=== PATIENT | female | born 1940 | race Caucasian/White ===

== ENCOUNTER 2017-03-29 22:15 | Inpatient (IN) | payer MEDICARE ==
[2017-03-29] MEDS: Aspirin Low Dose CHEW TAB* 81 MG PO ONE (22:54)
[2017-03-29] MEDS ORDERED: HYDROmorphone* 1 MG/ML 1 ML SYR IV SLOW PU ONE (23:09)
[2017-03-29] MEDS ORDERED: Ondansetron INJ* 2 MG/ML VIAL IV ONE (23:10)
[2017-03-29 23:47] LABS: Hematocrit 33 % (35-47); Hemoglobin 9.9 g/dl (12.0-16.0); Mean Corpuscular HGB Conc 30 g/dl (31-36); Mean Corpuscular Hemoglobin 19 pg (27-31); Mean Corpuscular Volume 64 fL (80-97); Mean Platelet Volume 10 um3 (7.4-10.4); Red Blood Count 5.18 10^6/ul (4.0-5.4); Red Cell Distribution Width 20 % (10.5-15); White Blood Count 15.1 10^3/ul (3.5-10.8)
[2017-03-29 23:48] LABS: Add Diff/Slide Review? Slide Review Added; Comments Flag Yes
[2017-03-29 23:52] LABS: ALT 26 U/L (7-52); AST 34 U/L (13-39); Albumin 3.5 g/dL (3.2-5.2); Alkaline Phosphatase 109 U/L (34-104); Amylase 24 U/L (29-103); Anion Gap 6 mmol/L (2-11); BUN/Creatinine Ratio 29.5 (8-20); Blood Urea Nitrogen 26 mg/dL (6-24); CO2 Carbon Dioxide 30 mmol/L (22-32); Calcium 8.8 mg/dL (8.6-10.3); Chloride 95 mmol/L (101-111); EGFR African American 80.8 (>60); EGFR Non-African American 62.8 (>60); Globulin 3.4 g/dL (2-4); Glucose 347 mg/dL (70-100); Lipase < 10 U/L (11.0-82.0); Potassium 4.2 mmol/L (3.5-5.0); Sodium 131 mmol/L (133-145); Total Protein 6.9 g/dL (6.4-8.9)
[2017-03-29 23:55] LABS: Troponin I 0.05 ng/mL (<0.04)
[2017-03-30 00:43] LABS: Hypochromasia 3+; Macrocytosis 1+; Microcytosis 1+; Target Cells 2+
[2017-03-30] MEDS ORDERED: Lidocaine 2% VISCOUS* 15 ML UDC PO ONE (02:06)
[2017-03-30] MEDS ORDERED: Al Hydrox/Mg Hydrox/Simet LIQ* 30 ML UDC PO ONE (02:06)
[2017-03-30] MEDS: Aspirin Low Dose CHEW TAB* 81 MG PO ONE (03:54)
[2017-03-30] MEDS ORDERED: Docusate CAP* 100 MG PO ONE (04:31)
[2017-03-30] MEDS ORDERED: Docusate CAP* 100 MG PO PRN (05:53)
[2017-03-30] MEDS ORDERED: Sucralfate TAB* 1 GM PO PRN (05:53)
[2017-03-30] MEDS ORDERED: Al Hydrox/Mg Hydrox/Simet LIQ* 30 ML UDC PO PRN (06:00)
[2017-03-30] MEDS ORDERED: Enoxaparin(*) 40 MG/0.4 ML SYR SUBCUT SCH (06:00)
[2017-03-30] MEDS: Levothyroxine TAB* 75 MCG TAB PO SCH (07:24)
[2017-03-30] MEDS: Omeprazole CAP* 20 MG PO SCH (07:24)
[2017-03-30] MEDS: INSULIN DETEMIR 100 UNIT/ML SUBCUT SCH ×3 (07:26→17:52)
[2017-03-30] MEDS ORDERED: Insulin LISPRO* 1 UNITS UNIT SUBCUT SCH (07:30)
[2017-03-30] MEDS: INSULIN ASPART 100 UNIT/ML SUBCUT SCH ×4 (07:31→20:56)
[2017-03-30] MEDS: Levothyroxine TAB* 100 MCG TAB PO SCH (07:36)
--- NOTE | 2017-03-30 07:41 | RAD ---
HISTORY: Chest pain COMPARISONS: June 15, 2016 VIEWS:1: Single frontal portable view of the chest at 11:07 PM FINDINGS: LINES AND TUBES: None. CARDIOMEDIASTINAL SILHOUETTE: The cardiomediastinal silhouette is normal for portable technique. PLEURA: The costophrenic angles are sharp. No pleural abnormalities are noted. LUNG PARENCHYMA: There is hyperinflation. ABDOMEN: The upper abdomen is clear. There is no subphrenic gas. BONES AND SOFT TISSUES: No bone or soft tissue abnormalities are noted. IMPRESSION: NO ACTIVE CARDIOPULMONARY DISEASE.
--- NOTE | 2017-03-30 07:58 | RAD ---
CLINICAL HISTORY: Left upper quadrant pain, history of pancreatic cancer COMPARISON: MRI of the abdomen dated March 04, 2017, CT dated February 09, 2016, CT dated February 17, 2016 TECHNIQUE: Multiple contiguous axial CT scans were obtained of the abdomen and pelvis, without intravenous contrast enhancement. Coronal and sagittal multiplanar reformations are submitted for review. Oral contrast was administered. FINDINGS: The study is limited by the lack of intravenous contrast. This limits evaluation of the solid organs and vasculature. LUNG BASES: The lung bases are clear. LIVER: The liver is normal in shape, size, contour, and attenuation. BILE DUCTS: There is a small amount of pneumobilia GALLBLADDER: The gallbladder is well-visualized. PANCREAS: The pancreas is not well evaluated. Atrophic. There is post surgical change in the region of the pancreatic head SPLEEN: The spleen is not visualized UPPER GI TRACT: Evaluation of the gastrointestinal tract is limited by incomplete gastric distention. There is post surgical change to the upper GI tract SMALL BOWEL AND MESENTERY: The small bowel is normal in contour, course, and caliber. There is no obstruction or dilatation. COLON: There are multiple diverticula of the sigmoid colon. There is no pericolonic inflammatory change. ADRENALS: Normal bilaterally. KIDNEYS: The kidneys are normal in shape, size, contour, and axis. There is no hydronephrosis or nephrolithiasis. BLADDER: The bladder is smooth in contour. PELVIC ORGANS: The pelvic organs are not visualized. AORTA: The aorta is normal. IVC: Unremarkable LYMPH NODES: There is no lymphadenopathy by size criteria. ABDOMINAL WALL: There is a small fat-containing ventral hernia on the right best seen on axial image 45 BONES AND SOFT TISSUES: Degenerative changes are noted of the spine OTHER: None IMPRESSION: 1. THE PATIENT APPEARS TO BE STATUS POST WHIPPLE PROCEDURE AND SPLENECTOMY, THOUGH EVALUATION IS LIMITED BY THE LACK OF INTRAVENOUS CONTRAST 2. DIVERTICULOSIS. 3. THERE IS NO APPRECIABLE LOCULATED FLUID COLLECTION TO SUGGEST ABSCESS. NO ACUTE CT PATHOLOGY OF THE VISUALIZED ABDOMEN OR PELVIS.
[2017-03-30] MEDS: Atenolol TAB* 25 MG PO SCH (09:22)
[2017-03-30] MEDS: Aspirin EC Low Dose* 81 MG TAB.EC PO SCH (09:22)
[2017-03-30] MEDS: Ramipril CAP* 2.5 MG PO SCH ×2 (09:22→09:37)
[2017-03-30] MEDS ORDERED: Acetaminophen TAB* 325 MG PO PRN (10:16)
[2017-03-30] MEDS: PANCRELIPASE 12000 UNIT PO SCH ×3 (10:43→17:56)
--- NOTE | 2017-03-30 14:28 | CONS ---
CC: Mj Reveles MD CARDIOLOGY CONSULTATION: DATE OF CONSULT: 03/30/17 INDICATION FOR CONSULTATION: Acute coronary syndrome. HISTORY OF PRESENT ILLNESS: The patient is a 76-year-old female with a history of diabetes, history of pancreatic cancer, status post chemotherapy and radiation, who came to the emergency room franci alston of abdominal and flank pain. The patient states for the last couple of days, she has noticed that she has had this epigastric discomfort. It radiates around to her side and up into her middle back . She has had it a couple of times that lasted 10 or 15 minutes and then resolved; however, last ni gh she had severe pain and some degree of nausea associated with it. She decided to come to the em ergency room. On arrival to the emergency room, the patient was given a GI cocktail and nitroglycer in. Eventually, her chest pain resolved. The patient was admitted to the hospital for chest pain. Her initial troponin level was 0.05. Her second troponin, 0.14. Third troponin 0.05. The patient 's EKG had normal sinus rhythm with T-wave inversions and ST segment depression in V4, V5, and V6. These are new compared to her EKG in 2016. This morning, the patient is pain-free. 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 PAST SURGICAL HISTORY: She had a Whipple procedure in March of 2016. Also, history of thyroidectomy, hysterectomy, shoulder surgery. OUTPATIENT MEDICATIONS: 1. Levothyroxine 175 mcg a day. 2. Lipitor 10 mg a day. 3. 150 mg a day. 4. Levemir injection. 5. Atenolol 25 mg a day. 6. Aspirin 81 mg a day. 7. Omeprazole 20 mg a day. 8. Vitamin C. ALLERGIES: No known drug allergies. SOCIAL HISTORY: She is . She is retired. She does not exercise regularly. She denies tobac co or alcohol use. REVIEW OF SYSTEMS: Negative for fevers and chills. Negative for changes in weight. Positive for f requent headaches. PHYSICAL EXAM: Height is 5 feet 3 inches, weight is 130 pounds. Blood pressure of 158/66, heart ra te is 70, temperature is 98.8, oxygen saturation 98% on room air. Sclerae anicteric. Oropharynx is pink without erythema. Carotids are 2+ without bruits. JVD is normal. Thyroid is normal. Cardiac Exam: S1, S2 without any murmurs, rubs or gallops. Lungs are clear to auscultation bilaterally. There is no dullness to percussion. Abdomen is soft, nontender, nondistended, with normoactive riddhi l sounds. Extremities show no edema. She has 2+ pulses throughout. The patient is awake, alert, a nd oriented. She moves all 4 extremities equally. DIAGNOSTIC STUDIES/LABORATORY DATA: Chemistries within normal limits. BUN 26, creatinine 0.88. CB C: White count 15, hemoglobin 9, hematocrit 33, which is about her baseline. IMPRESSION: This is a 76-year-old woman with a history of supraventricular tachycardia, who came to the hospital because of typical anginal -type symptoms. She had EKG changes and a mild elevation in troponin. I think this is consistent with acute coronary syndrome. The patient did have a stress test in 2014 , which showed normal perfusion throughout her myocardium. For now, my recommendation is the patient undergo cardiac catheterization. Given her history and he r presentation, I think she is at high risk for coronary artery disease. The risks and benefits wer e described in great detail to the patient and her , and they are willing to proceed. The pa tient will get an echocardiogram. The patient was started on a full-dose Lovenox. [id number]/[facility] #: [id number]
[2017-03-30 20:15] LABS: Urine Bacteria Absent (Absent); Urine Bilirubin Negative (Negative); Urine Glucose Negative (Negative); Urine Nitrite Negative (Negative)
--- NOTE | 2017-03-30 20:40 | ED ---
Rakel Elaine Alok, scribed for Lester Parikh MD on 03/30/17 at 0147 . Abdominal Pain/Female - HPI Summary HPI Summary: 76F presents to the ED with epigastric abd pain described as a soreness. Pt states that her abd sensation at first occurred for the last few months after eating, but for the last few weeks has been intermittent. Her abd pain worsened today, radiating to the back and left flank, prompting her visit to the ED. Pt initially took carafate which at first improved her symptoms but no longer do. Pt states that since arriving at the ED she was given dilaudid which improved her pain. Pt also notes increased eructation as well as diaphoresis at night. Pt also notes a fluttering sensation of the heart in the morning. Pt denies fever, or chills. Pt denies CP. PMHx includes pancreatic CA and DM. PSHx includes Whipple procedure. Pt takes Creon and aspirin. Pt denies ETOH/tobacco. Her last BM was 1700 today. - History of Current Complaint Chief Complaint: EDAbdPain Stated Complaint: FLANK PAIN Time Seen by Provider: 03/29/17 22:34 Hx Obtained From: Patient ?: No Onset/Duration: Lasting Weeks, Still Present Timing: Intermittent Episode Lasting Severity Initially: Moderate Severity Currently: Moderate Pain Intensity: 9 Pain Scale Used: 0-10 Numeric Location: Epigastric Radiates: Yes Radiates to: Back, Flank Aggravating Factor(s): Food Alleviating Factor(s): Medications - Dilaudid Associated Signs and Symptoms: Positive: Diaphoresis, Other: - eructation. Negative: Fever, Constipation Allergies/Adverse Reactions: Allergies Allergy/AdvReac Type Severity Reaction Status Date / Time Adhesive Tape Allergy Unknown Verified 03/30/17 00:20 Reaction Details contrast dye Allergy Intermediate Palpitation Uncoded 03/30/17 02:36 s Home Medications: Home Medications Aspirin [Aspirin 81 MG TAB] 81 mg PO DAILY 03/30/17 [History Confirmed 03/30/17] Atenolol TAB* [Tenormin TAB* 25 MG] 25 mg PO DAILY 03/30/17 [History Confirmed 03/30/17] Atorvastatin* [Lipitor*] 10 mg PO BEDTIME 03/30/17 [History Confirmed 03/30/17] Insulin Aspart [Novolog] 100 unit SUBCUT QID 03/30/17 [History Confirmed ] Insulin Detemir [Levemir Flextouch] 100 unit SUBCUT BID 03/30/17 [History Confirmed 03/30/17] Levothyroxine TAB (NF) [Synthroid TAB (NF)] 175 mcg PO DAILY 03/30/17 [History Confirmed 03/30/17] Pancrelipase (NF) [Creon (NF)] 36,000 units PO TID WITH MEALS 03/30/17 [History Confirmed 03/30/17] PMH/Surg Hx/FS Hx/Imm Hx Endocrine/Hematology History: Reports: Hx Thyroid Disease Denies: Hx Diabetes Cardiovascular History: Denies: Hx Hypertension, Hx Pacemaker/ICD Respiratory History: Denies: Hx Asthma Musculoskeletal History: Denies: Hx Scoliosis Sensory History: Reports: Hx Hearing Aid Neurological History: Denies: Hx Headaches, Other Neuro Impairments/Disorders Psychiatric History: Denies: Hx Panic Disorder - Cancer History Cancer Type, Location and Year: papillary thyroid with surgery 2006 Hx Chemotherapy: No Hx Radiation Therapy: No - Surgical History Surgery Procedure, Year, and Place: LT ROTATOR CUFF REPAIR,THYROIDECTOMY; hysterectomy 05/2013; incisional hernia 2013; Infectious Disease History: No Infectious Disease History: Denies: Traveled Outside the [place] in Last 30 Days - Family History Known Family History: Negative: Cardiac Disease, Hypertension, Diabetes - Social History Occupation: Retired Lives: With Family Alcohol Use: None Substance Use Type: Reports: None Smoking Status (MU): Never Smoked Tobacco Review of Systems Positive: Skin Diaphoresis. Negative: Fever, Chills Negative: Erythema Negative: Sore Throat Positive: Palpitations - fluttering. Negative: Chest Pain Negative: Shortness Of Breath, Cough Positive: Abdominal Pain, Other - eructation. Negative: Vomiting, Nausea Positive: flank pain. Negative: dysuria, hematuria Negative: Myalgia, Edema Negative: Rash Neurological: Other - Negative: Dizziness All Other Systems Reviewed And Are Negative: Yes Physical Exam - Summary Physical Exam Summary: Constitutional: Well-developed, Well-nourished, Alert. (-) Distressed Skin: Warm, Dry HENT: Normocephalic; Atraumatic Eyes: Conjunctiva normal Neck: Musculoskeletal ROM normal neck. (-) JVD, (-) Stridor, (-) Tracheal deviation Cardio: Rhythm regular, rate normal, Heart sounds normal; Intact distal pulses; The pedal pulses are 2+ and symmetric. Radial pulses are 2+ and symmetric. (-) Murmur Pulmonary/Chest wall: Effort normal. (-) Respiratory distress, (-) Wheezes, (-) Rales Abd: Soft, Epigastric tenderness Musculoskeletal: (-) Edema Lymph: (-) Cervical adenopathy Neuro: Alert, Oriented x3 Psych: Mood and affect Kavita Triage Information Reviewed: Yes Vital Signs On Initial Exam: Initial Vitals Temp Pulse Resp BP Pulse Ox 98.2 F 72 16 172/86 97 03/29/17 22:15 03/29/17 22:15 03/29/17 22:15 03/29/17 22:15 03/29/17 22:15 Vital Signs Reviewed: Yes Diagnostics - Vital Signs Vital Signs Temp Pulse Resp BP Pulse Ox 03/30/17 01:00 63 15 167/74 94 03/30/17 00:30 64 17 177/84 97 03/30/17 00:01 65 16 173/89 96 03/30/17 00:00 65 18 95 03/29/17 23:30 68 14 160/83 99 03/29/17 23:05 69 12 92 03/29/17 23:03 170/77 03/29/17 22:55 98.4 F 69 17 170/77 94 03/29/17 22:15 98.2 F 72 16 172/86 97 - Laboratory Lab Results: Lab Results 03/29/17 03/29/17 03/29/17 Range/Units 23:17 23:17 23:17 WBC 15.1 H (3.5-10.8) 10^3/ul RBC 5.18 (4.0-5.4) 10^6/ul Hgb 9.9 L (12.0-16.0) g/dl Hct 33 L (35-47) % MCV 64 L (80-97) fL MCH 19 L (27-31) pg MCHC 30 L (31-36) g/dl RDW 20 H (10.5-15) % Plt Count 380 (150-450) 10^3/ul MPV 10 (7.4-10.4) um3 Neut % (Auto) 57.1 (38-83) % Lymph % (Auto) 24.5 L (25-47) % Tyrrell % (Auto) 12.7 H (1-9) % Eos % (Auto) 2.5 (0-6) % Baso % (Auto) 3.2 H (0-2) % Absolute Neuts (auto) 8.6 H (1.5-7.7) 10^3/ul Absolute Lymphs (auto) 3.7 (1.0-4.8) 10^3/ul Absolute Monos (auto) 1.9 H (0-0.8) 10^3/ul Absolute Eos (auto) 0.4 (0-0.6) 10^3/ul Absolute Basos (auto) 0.5 H (0-0.2) 10^3/ul Absolute Nucleated RBC 0.03 10^3/ul Nucleated RBC % 0.2 Normal RBC Morphology Not Reportable Hypochromasia 3+ Microcytosis 1+ Macrocytosis 1+ Target Cells 2+ Sodium 131 L (133-145) mmol/L Potassium 4.2 (3.5-5.0) mmol/L Chloride 95 L (101-111) mmol/L Carbon Dioxide 30 (22-32) mmol/L Anion Gap 6 (2-11) mmol/L BUN 26 H (6-24) mg/dL Creatinine 0.88 (0.51-0.95) mg/dL Est GFR ( Amer) 80.8 (>60) Est GFR (Non-Af Amer) 62.8 (>60) BUN/Creatinine Ratio 29.5 H (8-20) Glucose 347 H (70-100) mg/dL Lactic Acid 1.3 (0.5-2.0) mmol/L Calcium 8.8 (8.6-10.3) mg/dL Total Bilirubin 0.40 (0.2-1.0) mg/dL AST 34 (13-39) U/L ALT 26 (7-52) U/L Alkaline Phosphatase 109 H (34-104) U/L Troponin I 0.05 H* (<0.04) ng/mL Total Protein 6.9 (6.4-8.9) g/dL Albumin 3.5 (3.2-5.2) g/dL Globulin 3.4 (2-4) g/dL Albumin/Globulin Ratio 1.0 (1-3) Amylase 24 L (29-103) U/L Lipase < 10 L (11.0-82.0) U/L Result Diagrams: 03/29/17 23:17 03/29/17 23:17 Lab Statement: Any lab studies that have been ordered have been reviewed, and results considered in the medical decision making process. - Radiology CXR Xray Interpretation: No Acute Changes Radiology Interpretation Completed By: ED Physician - Dr. Parikh - CT Abd/Pel CT CT Interpretation: Positive (See Comments) - Impression: status post whipple procedure. no inflammatory process identified in the abd or pelvis. no abnormal mass, adenopathy or collection seen. moderate amount of retained stool throughout the colon. correlate for constipation. CT Interpretation Completed By: Radiologist - EKG 2229 Cardiac Rate: NL - 69 bpm EKG Rhythm: Sinus Rhythm EKG Interpretation: ST depressions in V5, V6. No STEMI 0346 Cardiac Rate: NL - 63 bpm EKG Rhythm: Sinus Rhythm EKG Interpretation: No STEMI EKG Comparison: No Significant Change - From 03/29/2017 @ 2229 Abdominal Pain Fem Course/Dx - Course Course Of Treatment: PATIENTS PAIN WAS EXACTLY REPRODUCED WITH EPIGASTRIC PALPATION - Diagnoses Provider Diagnoses: Abdominal pain, Elevated troponin - Provider Notifications Discussed Care Of Patient With: Dr. Reveles (Hospitalist) @ 0330 - Will admit pt Discharge - Discharge Plan Condition: Stable Disposition: ADMITTED TO [facility] The documentation as recorded by the Rakel ly Alok accurately reflects the service I personally performed and the decisions made by , Lester Parikh MD.
[2017-03-30] MEDS: Enoxaparin(*) 60 MG/0.6 ML SYR SUBCUT SCH (20:55)
[2017-03-30] MEDS: Atorvastatin* 10 MG TAB PO SCH (20:56)
--- NOTE | 2017-03-30 22:49 | HP ---
HISTORY AND PHYSICAL: DATE OF ADMISSION: 03/30/17 CHIEF COMPLAINT: Epigastric pain. HISTORY OF PRESENT ILLNESS: Ms. Jung is a 76-year-old woman with history of diabetes and pancreatic cancer who developed epigastric pain off and on in the last 2 months. The pain has been more frequent in the last 2 weeks, but is not necessarily associated with exertion. The night prior to admission, the pain was 10/10 and radiated to her back, so she decided to come to the emergency department. The pain is worsened by eating in the last 24 hours. Pain is not associated with nausea, vomiting, diaphoresis, or shortness of breath. She does now report 4/10 pain, sitting in the emergency department. The patient was diagnosed last year with pancreatic cancer of an unusual type, intraductal papillary mucinous adenoma. She underwent Whipple procedure and chemotherapy through [facility] and follows with surgeon and colleges there. She also was left with insulin dependent diabetes due to pancreatic resection and follows with [facility] in [place] for type 1 group of diabetes. She is very sensitive to insulin. The patient has no history of coronary artery disease, does have history of SVT. PAST MEDICAL HISTORY: Includes: 1. IPMA type pancreatic cancer as above. 2. Paroxysmal supraventricular tachycardia. 3. 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 4. Hypothyroidism, status post thyroidectomy for thyroid cancer. 5. History of radiation to her head and neck as a child. 6. Hyperlipidemia. 7. GERD. 8. History of epilepsy. 9. Allergic rhinitis. 10. Iron-deficiency anemia. PAST SURGICAL HISTORY: 1. Whipple procedure in March 2016. 2. Thyroidectomy. 3. Hysterectomy. 4. Splenectomy. MEDICATIONS ON ADMISSION: 1. Levothyroxine 175 mcg p.o. daily. 2. Lipitor 10 mg p.o. q.p.m. 3. Vitamin D 4000 units daily. 4. Ferrex iron 1 tablet p.o. daily. 5. Levemir 7 units subcutaneous in the a.m. and 5 units in the p.m. 6. NovoLog 1 to 5 units subcutaneous per sliding scale before meals up to 4 times per day. 7. Acyclovir topical cream as needed for cold sores. 8. Atenolol 25 mg p.o. daily. 9. Aspirin 81 mg p.o. daily. 10. Omeprazole 20 mg p.o. daily p.r.n., not currently used. 11. Creon 12,000 units 4 pills before meals, 1 pill before snacks. 12. Multivitamin 1 tablet p.o. daily. 13. Vitamin C 500 mg p.o. daily. ALLERGIES: She has allergy to IV CONTRAST for CAT scans. FAMILY HISTORY: Notable for paternal grandmother who at 73 of heart disease, mother of lung cancer, and father had myasthenia gravis. SOCIAL HISTORY: She is retired. She is . She has 2 children and 2 step children. Her healthcare proxy is her . She is a never smoker. No alcohol or drug use. REVIEW OF SYSTEMS: The patient denies any fevers, weight loss, or anorexia. The patient denies any chest pain or palpitations. The patient denies any cough , hemoptysis, or shortness of breath. The patient reports epigastric pain, but no diarrhea or vomiting. The patient denies any hematuria or dysuria. Remainder of her 14-point review of systems is negative other than that mentioned in the HPI. PHYSICAL EXAMINATION GENERAL: She is older woman, thin, in no acute distress. VITAL SIGNS: Temperature is 36.9, pulse 65, respirations 14, blood pressure 169 /83, O2 saturation is 96%. HEENT: Head is normocephalic, atraumatic. Sclerae anicteric. Pupils are equal , round and reactive to light and accommodation. Oropharynx is moist, no lesions. NECK: No JVD. No carotid bruit. No thyromegaly. Thyroid is absent surgically. LUNGS: Clear to auscultation and percussion bilaterally. HEART: Regular rate and rhythm without murmurs or gallops. ABDOMEN: Tender, epigastric. Soft. No masses. Normal bowel bowel sounds. EXTREMITIES: No peripheral edema. Dorsalis pedis pulses are 2+ bilaterally. NEUROLOGIC: Cranial nerves II through XII are intact. Motor strength is 5/5 throughout. Deep tendon reflexes are symmetric. LABORATORY DATA: Sodium 131, potassium 4.2, chloride 95, bicarbonate 30, BUN 26, creatinine 0.88, glucose 347, calcium 8.8, albumin 3.5, AST 34, ALT 26, bilirubin 0.4. Lactic acid 1.3. Lipase less than 10. Troponin is 0.05, up to 0.14 after 3 hours. White count 15.1, hemoglobin 9.9, hematocrit 33%, platelets are 380, MCV of 54. EKG shows normal sinus rhythm, normal axis. There is ST elevation in lead III. There are T-wave inversions and ST depressions in V5 through V6. These are new compared with April 2016. Chest x-ray negative for infiltrates or effusions. CT of abdomen and pelvis shows prominent stool and postsurgical changes from Whipple procedure. No other important findings. ASSESSMENT AND PLAN: This 76-year-old woman presenting with epigastric pain, elevated troponin. The epigastric pain differential would include gastritis, ulcer or signs of inferior myocardial infarction. The troponin elevation combined with EKG changes of ischemia or non-transmural myocardial infarction are concerning. The patient will be admitted to the cardiac care unit and monitored on telemetry and serial troponins due to acute coronary syndrome. She will have cardiology consultation in the morning. For her gastritis, will be restarted on her omeprazole and have as needed Carafate or Mylanta. For her diabetes, she is insulin dependent and will be started on her home regimen of Levemir and NovoLog. She can manage her own sliding scale based on what she eats. For electrolytes, she is euvolemic and not significant. Electrolyte disturbances possibly will be hydrated. She does not need any intravenous fluids. Code status is full. For her DVT prophylaxis, she will have subcutaneous Lovenox due to high risk situation with previous cancer. For iron deficiency, she will continue on her oral iron. Her white count is elevated likely due to stress and her history of splenectomy. CC: Dr. Simmons * [id number]/[facility] #: [id number] [facility]US[facility]
[2017-03-31] MEDS: Omeprazole CAP* 20 MG PO SCH (05:43)
[2017-03-31] MEDS: Levothyroxine TAB* 100 MCG TAB PO SCH (05:43)
[2017-03-31] MEDS: Levothyroxine TAB* 75 MCG TAB PO SCH (05:43)
[2017-03-31 06:04] LABS: Hematocrit 35 % (35-47); Hemoglobin 10.1 g/dl (12.0-16.0); Mean Corpuscular HGB Conc 29 g/dl (31-36); Mean Corpuscular Hemoglobin 19 pg (27-31); Mean Corpuscular Volume 64 fL (80-97); Mean Platelet Volume 10 um3 (7.4-10.4); Red Blood Count 5.37 10^6/ul (4.0-5.4); Red Cell Distribution Width 20 % (10.5-15); White Blood Count 16.5 10^3/ul (3.5-10.8)
[2017-03-31 06:05] LABS: Add Diff/Slide Review? Manual Diff Added; Comments Flag Yes
[2017-03-31 06:18] LABS: BUN/Creatinine Ratio 27.5 (8-20); Calcium 8.8 mg/dL (8.6-10.3); EGFR African American 90.2 (>60); EGFR Non-African American 70.1 (>60); Potassium 4.1 mmol/L (3.5-5.0)
[2017-03-31 06:20] LABS: Eosinophils % 6 % (0-6); Neutrophil % 71 % (38-83); Reactive Lymph % 1 % (0-6)
[2017-03-31 06:21] LABS: Hypochromasia 2+; Microcytosis 2+; Schistocytes 1+
[2017-03-31 06:22] LABS: Add Path Review? YES; Target Cells 2+
[2017-03-31] MEDS: INSULIN DETEMIR 100 UNIT/ML SUBCUT SCH ×2 (08:31→17:16)
[2017-03-31] MEDS: PANCRELIPASE 12000 UNIT PO SCH ×3 (08:34→17:14)
[2017-03-31] MEDS: Aspirin EC Low Dose* 81 MG TAB.EC PO SCH (08:35)
[2017-03-31] MEDS: Atenolol TAB* 25 MG PO SCH (08:35)
[2017-03-31] MEDS: INSULIN ASPART 100 UNIT/ML SUBCUT SCH ×4 (08:35→20:59)
[2017-03-31] MEDS: Ramipril CAP* 2.5 MG PO SCH (08:35)
[2017-03-31] MEDS: Enoxaparin(*) 60 MG/0.6 ML SYR SUBCUT SCH ×2 (08:36→21:30)
--- NOTE | 2017-03-31 10:08 | ECHO ---
Patient: EDILIA GAN [facility] Rec#: [id number] : 1940 Date: 03/31/2017 Age: 76y Height: 160 cm / 63.0 in Weight: 59 kg / 130.0 lbs Sex: F BSA: 1.6 Room#: ICU 2 Admit Date#: 03/30/2017 Type: Inpatient Referring: Herbert Simmons MD Reading: Herbert Simmons MD Stamping Press Operator: Amanda Hawley RN RDCS CC: Mj Reveles MD Transthoracic Echocardiogram Indication: NSTEMI BP: 138/65 HR: 55 Rhythm: Bradycardia Findings History: Pancreatic cancer S/P chemotherapy and radiation therapy, DM, thyroid cancer, dyslipidemia, PSVT Technical Comments: The study quality is good. Completed at 0900. Left Ventricle: The left ventricular chamber size is normal. Mild concentric left ventricular hypertrophy is observed. There is increased basal septal hypertrophy noted without evidence of an increased gradient across the left ventricular outflow tract. The septal knuckle measures 1.6 cm. Global left ventricular wall motion and contractility are within normal limits. There is normal left ventricular systolic function. The estimated ejection fraction is 55-60%. There is an E to A reversal in the mitral valve flow pattern suggestive of diastolic dysfunction. Left Atrium: The left atrial chamber size is normal. Right Ventricle: The right ventricular chamber size and systolic function are within normal limits. Right Atrium: The right atrial cavity size is normal. There is evidence of an atrial septal aneurysm. And possibly a small Patent Foramen Ovale Aortic Valve: The aortic valve is trileaflet. The aortic valve leaflets are mildly thickened. There is a trace of aortic regurgitation. There is no evidence of aortic stenosis. Mitral Valve: The mitral valve leaflets are mildly thickened. There is mild to moderate mitral regurgitation. There is no evidence of mitral stenosis. Tricuspid Valve: The tricuspid valve leaflets are normal. There is mild tricuspid regurgitation. No pulmonary hypertension is noted. Pulmonic Valve: The pulmonic valve appears normal. There is mild pulmonic regurgitation. There is no pulmonic stenosis. Pericardium: There is no significant pericardial effusion. Aorta: There is mild dilatation of the ascending aorta.3.5 cm There is no dilatation of the aortic arch. There is no dilation of the aortic root. Pulmonary Artery: The main pulmonary artery appears normal. Venous: The inferior vena cava appears normal in size. There is a greater than 50% respiratory change in the inferior vena cava dimension. Summary: There are no significant changes when compared to the previous study done on 03/14/12 Conclusions There is increased basal septal hypertrophy noted without evidence of an increased gradient across the left ventricular outflow tract. The septal knuckle measures 1.6 cm. Global left ventricular wall motion and contractility are within normal limits. The estimated ejection fraction is 55-60%. There is an E to A reversal in the mitral valve flow pattern suggestive of diastolic dysfunction. The right ventricular chamber size and systolic function are within normal limits. There is a trace of aortic regurgitation. There is mild to moderate mitral regurgitation. There is mild tricuspid regurgitation. No pulmonary hypertension is noted. There is no significant pericardial effusion. There are no significant changes when compared to the previous study done on 03/14/12 Measurements Name Value Normal Range RVDdMajor (2D) 2.4 cm (2.2 - 4.4) RAd ISD 4CH 4.5 cm (3.4 - 4.9) RA (A4C)W 3.7 cm (2.9 - 4.6) IVSd (2D) 1.1 cm (0.6 - 1) LVPWd (2D) 0.9 cm (0.6 - 1) LVIDd (2D) 3.7 cm (3.6 - 5.4) LVIDs (2D) 2.6 cm - LV FS (2D) 30 % (25 - 45) Aortic Annulus 1.9 cm (1.4 - 2.6) Ao root diameter (2D) 3.2 cm (2.1 - 3.5) Ascending Ao 3.5 cm (2.1 - 3.4) Aortic arch 2.5 cm (1.8 - 3.4) LA dimension (AP) 2D 3.6 cm (2.3 - 3.8) LAd ISD 4CH 4.9 cm (2.9 - 5.3) LA ISD 4CH W 3.5 cm (2.5 - 4.5) Name Value Normal Range LA ESV SP 4CH (A/L) 36 ml - LA ESV SP 2CH (A/L) 56 ml - LA ESV BP (A/L) 45 ml - LA ESV BP (A/L) index 28 ml/m2 - LA ESV SP 4CH (MOD) 34 ml - LA ESV SP 2CH (MOD) 56 ml - Name Value Normal Range MV E-wave Vmax 0.72 m/sec - MV deceleration time 335 msec - MV A-wave Vmax 1.1 m/sec - MV E:A ratio 0.66 ratio - LV septal e' Vmax 0.05 m/sec - LV lateral e' Vmax 0.06 m/sec - LV E:e' septal ratio 14.4 ratio - LV E:e' lateral ratio 12 ratio - Name Value Normal Range AV Vmax 1.5 m/sec - AV VTI 41 cm - AV peak gradient 9 mmHg - AV mean gradient 5 mmHg - LVOT Vmax 1.2 m/sec - LVOT VTI 31 cm - LVOT peak gradient 5 mmHg - LVOT mean gradient 3 mmHg - JAYE Vmax 0.53 m/sec - Name Value Normal Range TR Vmax 2.5 m/sec - TR peak gradient 25 mmHg - RAP 3 mmHg - RVSP 28 mmHg - IVC diameter 1 cm - Name Value Normal Range PV Vmax 0.79 m/sec -
[2017-03-31] MEDS ORDERED: Diazepam TAB(*) 5 MG PO ONE (11:28)
[2017-03-31] MEDS ORDERED: diPHENhydraMINE PO* 25 MG PO ONE (11:28)
[2017-03-31] MEDS ORDERED: predniSONE TAB* 20 MG PO ONE (11:28)
--- NOTE | 2017-03-31 17:31 | PN ---
Subjective Date of Service: 03/31/17 Interval History: . No new complaints. Plan for cath tomorrow as per cardiology. at bedside; all questions answered. Family History: Unchanged from Admission Social History: Unchanged from Admission Past Medical History: Unchanged from Admission Objective Active Medications: . Acetaminophen (Tylenol Tab*) 650 mg PO Q6H PRN PRN Reason: PAIN Al Hydrox/Mg Hydrox/Simethicone (Maalox Plus*) 30 ml PO Q4H PRN PRN Reason: DYSPEPSIA Aspirin (Aspirin Ec Low Dose*) 81 mg PO DAILY [facility] Last Admin: 03/31/17 08:35 Dose: 81 mg Atenolol (Tenormin Tab*) 25 mg PO DAILY [facility] Last Admin: 03/31/17 08:35 Dose: 25 mg Atorvastatin Calcium (Lipitor*) 10 mg PO BEDTIME [facility] Last Admin: 03/30/17 20:56 Dose: 10 mg Diazepam (Valium Tab(*)) 5 mg PO ONCE ONE Stop: 04/01/17 07:01 Diphenhydramine HCl (Benadryl Po*) 25 mg PO ONCE ONE Stop: 04/01/17 07:01 Docusate Sodium (Colace Cap*) 100 mg PO BID PRN PRN Reason: CONSTIPATION Enoxaparin Sodium (Lovenox(*)) 60 mg SUBCUT Q12H [facility] Stop: 03/31/17 23:59 Last Admin: 03/31/17 08:36 Dose: 60 mg Sodium Chloride (Ns 0.9% 1000 Ml*) 1,000 mls @ 75 mls/hr IV .per rate [facility] Insulin Aspart (Novolog (Nf)) 0 unit SUBCUT ACHS [facility] PRN Reason: Protocol Stop: 04/04/17 23:59 Last Admin: 03/31/17 17:17 Dose: 4.5 units Insulin Detemir (Levemir (Nf)) 7 unit SUBCUT QAM [facility] Last Admin: 03/31/17 08:31 Dose: 7 unit Insulin Detemir (Levemir (Nf)) 5 unit SUBCUT 1700 [facility] Last Admin: 03/31/17 17:16 Dose: 5 unit Levothyroxine Sodium (Synthroid Tab*) 100 mcg PO 0600 [facility] Last Admin: 03/31/17 05:43 Dose: 100 mcg Levothyroxine Sodium (Synthroid Tab*) 75 mcg PO DAILY@0600 [facility] Last Admin: 03/31/17 05:43 Dose: 75 mcg Methylprednisolone Sodium Succinate (Solu-Medrol 40 Mg) 40 mg IV ONCE ONE Stop: 04/01/17 07:01 Omeprazole (Prilosec Cap*) 20 mg PO 0600 [facility] Last Admin: 03/31/17 05:43 Dose: 20 mg Pancrelipase (Creon (Nf)) 36,000 units PO TID WITH MEALS [facility] Last Admin: 03/31/17 17:14 Dose: 48,000 units Ramipril (Altace Cap*) 2.5 mg PO DAILY [facility] Last Admin: 03/31/17 08:35 Dose: 2.5 mg Sucralfate (Carafate*) 1 gm PO AC PRN PRN Reason: DYSPEPSIA . Vital Signs 03/30/17 03/30/17 03/30/17 18:00 19:00 19:28 Temperature Pulse Rate 67 61 65 Respiratory 20 17 17 Rate Blood Pressure 143/71 (mmHg) O2 Sat by Pulse 96 95 97 Oximetry 03/30/17 03/30/17 03/30/17 19:35 20:00 21:00 Temperature 99.2 F Pulse Rate 62 59 Respiratory 16 17 Rate Blood Pressure 145/74 140/70 (mmHg) O2 Sat by Pulse 97 98 Oximetry Oxygen Devices in Use Now: Nasal Cannula Appearance: NAd; appears stated age Ears/Nose/Mouth/Throat: Clear Oropharnyx Neck: Trachea Midline Respiratory: Symmetrical Chest Expansion and Respiratory Effort Cardiovascular: NL Sounds; No Murmurs; No JVD Abdominal: NL Sounds; No Tenderness; No Distention Extremities: No Edema Skin: No Rash or Ulcers Neurological: Alert and Oriented x 3 Lines/Tubes/Other Access: Clean, Dry and Intact Peripheral IV Nutrition: Taking PO's Result Diagrams: 03/31/17 05:40 03/31/17 05:40 Additional Lab and Data: . Microbiology and Other Data: Microbiology 03/30/17 09:20 Nasal Screen MRSA (PCR)([place]) - Final Nasal Mrsa Negative EKG Data: 03/30/17: EKG (in ED) lateral ST segment depression suggestive of LCX (or perhaps LAD) disease. Cath pending. Assess/Plan/Problems-Billing . Assessment: 76 yo female s/p Whipple procedure for pancreatic adenocarcinoma, and type I diabetic, now with chest pain, indeterminate troponins and ischemic EKG changes. Plan for cardiac cath April [address] Simmons (clinical advisor) . - Patient Problems (1) Acute coronary syndrome Current Visit: Yes Status: Acute Priority: High Code(s): I24.9 - ACUTE ISCHEMIC HEART DISEASE, UNSPECIFIED Comment: - ASA - DOROTHY - Statin - BB - Lovenox for anticoaulation - telemetry - prn morphine for pain - cath saturdayapril 01 (2) Insulin dependent diabetes mellitus Current Visit: Yes Status: Acute Code(s): E11.9 - TYPE 2 DIABETES MELLITUS WITHOUT COMPLICATIONS; Z79.4 - CUSTODIAL (CURRENT) USE OF INSULIN Comment: - lantus/levemir + short acting - 1/2 dose when NPO - patient may wish NOT to receive steroids 2/2 only questionable dye reaction - - does not sound like a true allergy and I don't feel strongly steroids are necessary. (3) Post-pancreatectomy diabetes Current Visit: Yes Status: Acute Priority: High Code(s): E89.1 - POSTPROCEDURAL HYPOINSULINEMIA; E13.9 - OTHER SPECIFIED DIABETES MELLITUS WITHOUT COMPLICATIONS; Z90.410 - ACQUIRED TOTAL ABSENCE OF PANCREAS (4) Hypothyroidism Current Visit: Yes Status: Chronic Priority: High Code(s): E03.9 - HYPOTHYROIDISM, UNSPECIFIED Comment: - continue synthroid replacement.
[2017-03-31] MEDS: Atorvastatin* 10 MG TAB PO SCH (20:58)
[2017-03-31] MEDS ORDERED: NS 0.9% 1000 ML* 1,000 ML IV SCH (23:55)
[2017-04-01] MEDS: Levothyroxine TAB* 100 MCG TAB PO SCH (06:11)
[2017-04-01] MEDS: Levothyroxine TAB* 75 MCG TAB PO SCH (06:11)
[2017-04-01] MEDS: Omeprazole CAP* 20 MG PO SCH (06:12)
[2017-04-01] MEDS ORDERED: diPHENhydraMINE PO* 25 MG PO ONE (07:00)
[2017-04-01] MEDS ORDERED: methylPREDNISolone SOD 40 MG* 1 ML VIAL IV ONE (07:00)
[2017-04-01] MEDS ORDERED: Diazepam TAB(*) 5 MG PO ONE (07:00)
[2017-04-01] MEDS: INSULIN ASPART 100 UNIT/ML SUBCUT SCH ×2 (07:36→12:52)
[2017-04-01] MEDS: INSULIN DETEMIR 100 UNIT/ML SUBCUT SCH (07:43)
[2017-04-01] MEDS: Aspirin EC Low Dose* 81 MG TAB.EC PO SCH (07:44)
[2017-04-01] MEDS: Atenolol TAB* 25 MG PO SCH (07:44)
[2017-04-01] MEDS: Ramipril CAP* 2.5 MG PO SCH (07:44)
[2017-04-01] MEDS: PANCRELIPASE 12000 UNIT PO SCH ×2 (09:31→12:51)
[2017-04-01] MEDS ORDERED: Midazolam* 1 MG/ML 5 ML VIAL (5 MG) ONE (10:23)
[2017-04-01] MEDS ORDERED: fentaNYL* 50 MCG/ML 2 ML VIAL (100 MCG VIAL) ONE (10:23)
[2017-04-01] MEDS ORDERED: Heparin 2 UNITS/ML IVPREMIX* 3,000 ML IV ONE (10:24)
[2017-04-01] MEDS ORDERED: Lidocaine 1% INJ* 10 MG/ML 30 ML SDV ONE (10:24)
[2017-04-01] MEDS ORDERED: Iodixanol* (CONTRAST) 320 MG/ML 100 ML SDV ONE (10:25)
[2017-04-01 15:16] VITALS: BP 117/70
--- NOTE | 2017-04-01 16:32 | PN ---
Hospitalist Progress Note . HOSPITALIST DISCHARGE NOTE: See dc instructions and summary by me. Patient stable for dc dc instructions reviewed with the patient at the bedside. DC patient home today.
--- NOTE | 2017-04-02 08:45 | CATH ---
CC: Dr. Mj Reveles CARDIAC CATHETERIZATION NOTE: DATE OF PROCEDURE: 04/01/17 - ROOM #[id number] PROCEDURE: Cardiac catheterization including coronary angiography. INDICATION: Acute coronary syndrome. HISTORY: The patient is a 76-year-old female with a history of supraventricular tachycardia, who was admitted to the hospital with chest pain. The patient's peak troponin level was 0.15. Patient did have ST segment depressions in her inferior leads, consistent with her chest pain and possible ischemia. Cardiac catheterization was recommended. PROCEDURE IN DETAIL: The patient was brought to the cardiac catheterization lab in a fasting state. Informed consent had been obtained prior to the procedure. All labs have been reviewed. The patient was placed supine on the catheterization table. Both femoral areas were cleaned and draped in the usual fashion. 1% lidocaine was used for local anesthesia. The right femoral artery was entered by a modified Seldinger technique and a 6-Egyptian sheath introducer was placed. The patient underwent a coronary angiography using a 6-Egyptian JL4 catheter and a 6-Egyptian JR4 catheter. At the end of the procedure, an angiogram of the femoral artery demonstrated a normal position and a Mynx closure device was deployed. The patient tolerated the procedure well with no complications. A total of 40 cc of Visipaque dye was used, a total of 1.5 minutes of fluoro time. FINDINGS: 1. Left main artery: The left main was normal in size. It bifurcated at the LAD and circumflex. There was no evidence of stenosis. 2. Left anterior descending artery: The LAD was normal in size. It gave off one diagonal vessel. There was no evidence of stenosis. 3. Left circumflex artery: The circumflex artery was normal in size. It gave off one large obtuse marginal branch. There was no evidence of stenosis. 4. Right coronary artery: The RCA was a large dominant vessel giving off the PDA and a posterolateral branch. There was no evidence of stenosis. IMPRESSION: 1. Normal coronary arteries. 2. Mynx closure device of the right femoral artery. RECOMMENDATION: The patient will continue on maximum medical therapy. CC: Dr. Mj Reveles* [id number]/[facility] #: [id number] MTDD
--- NOTE | 2017-04-02 10:41 | DS ---
CC: Mj Reveles MD; Herbert Simmons MD DISCHARGE SUMMARY: DATE OF ADMISSION: 03/30/17 DATE OF DISCHARGE: 04/01/17 STATUS DURING HOSPITALIZATION: Inpatient. PRIMARY CARE PROVIDER: Mj Reveles MD. CONSULTING CANINE SERVICE INSTRUCTOR TRAINER AND OUTPATIENT CANINE SERVICE INSTRUCTOR TRAINER: Herbert Simmons MD. PRINCIPAL DISCHARGE DIAGNOSES: Acute coronary syndrome/unstable angina, status post cardiac cathete rization with no occlusions to require stenting/angioplasty - discharge home in stable condition. SECONDARY DIAGNOSES: 1. 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 2. Paroxysmal supraventricular tachycardia. 3. Type 2 diabetes secondary to pancreatic resection. 4. Hypothyroidism status post thyroidectomy for thyroid cancer. 5. History of radiation to head and neck as a child. 6. Hyperlipidemia. 7. Gastroesophageal reflux disease. 8. History of epilepsy. 9. Allergic rhinitis. 10. Iron-deficiency anemia. NOTED SURGICAL HISTORY: Includes the Whipple procedure in March 2016, thyroidectomy, hysterectomy, sp lenectomy. DISCHARGE MEDICATION REGIMEN: No changes intended and include: 1. Levothyroxine 175 mcg by mouth daily. 2. Lipitor 10 mg by mouth q.p.m. 3. Vitamin D 4000 units daily. 4. Ferrex iron one tablet by mouth daily. 5. Levemir 7 units subcutaneous in the a.m. and 5 units in the p.m. 6. NovoLog 1 to 5 units subcutaneous per sliding scale before meals up to 4 times daily. 7. Acyclovir topical cream as needed for cold sores. 8. Atenolol 25 mg by mouth daily. 9. Aspirin 81 mg by mouth daily. 10. Omeprazole 20 mg by mouth daily as needed, but not currently being used. 11. Creon 12,000 units per pill - 4 pills before meals, 1 pill before snacks. 12. Multivitamin one tablet by mouth once daily. 13. Vitamin C 500 mg by mouth daily. HISTORY OF PRESENT ILLNESS AND HOSPITAL COURSE: Please see Dr. Mj Reveles's thorough H and P fo r García Jung. She is a 76-year-old woman with known medical history as noted above who developed e pigastric pain on and off in the last two months with more frequent attacks lately, but not necessar supriya noted with exertion. The patient experienced an increase in this pain to 10/10 in severity with radiation to her back, and so she came to the emergency room. There was some association with eatin g, but not with accompanying symptoms such as nausea, vomiting, diaphoresis or shortness of breath. The patient had an EKG, which showed lateral ST segment depressions in V5 and V6. There was ST latrice vation in V3. These were new changes compared with the most recent EKG in the system in April 2016. The patient also had an indeterminant troponin at 0.5, up to 0.14 after three hours. The patient wa s placed on observation status and seen by Dr. Herbert Simmnos in consultation, who agreed the patient required a cardiac catheterization. Because of the weekend, she was scheduled for this on 04/01/17. She underwent catheterization this morning without difficulty and there was no acute occl usions noted to require intervention and so the patient was discharged back to telemetry floor for p ost-catheterization observation. She had no activity during this time. Her telemetry was generally unremarkable. Her labs were further unremarkable, and she was in good spirits and felt at her basel ine. She is being discharged in stable condition with instructions to followup with Dr. Reveles and Dr. Damien bloom in the outpatient setting. Dr. Simmons is going to reach out to her for followup in the next week. She was told to come back to the emergency room if she has any worsening symptoms including but not limited to chest pain, shortness of breath, lightheadedness, or any other worrisome symptoms, and s he said that she will compile with that instruction. TIME SPENT: Total time taken to discharge Ms. Jung was 45 minutes, greater than half the time sp ent going over the discharge instructions [id number] with the patient at the bedside. She is acco mpanied by her who asked questions, and all questions that were asked were answered to the p atient's and her 's satisfaction. CONDITION AT DISCHARGE: Stable. [id number]/[facility] #: [id number]
== END 2017-04-01 17:04 | disposition home or self-care (01) | DRG 287 ==
LOC: ED 22:15 → ICU 03-30 05:42 → MEDTELE 03-31 11:53
PROVIDERS: ADMIT Internal Medicine; ATTEND Internal Medicine
PROC: B211YZZ Fluoroscopy of Multiple Coronary Arteries using Other Contrast (ICD-10-PCS; 2017-04-01)
PROC: 4A023N7 Measurement of Cardiac Sampling and Pressure, Left Heart, Percutaneous Approach (ICD-10-PCS; principal; 2017-04-01 10:30)
DX: I24.9 Acute ischemic heart disease, unspecified (principal); C25.3 Malignant neoplasm of pancreatic duct; I47.1 Supraventricular tachycardia; E03.9 Hypothyroidism, unspecified; D50.9 Iron deficiency anemia, unspecified; E11.9 Type 2 diabetes mellitus without complications; E78.5 Hyperlipidemia, unspecified; K21.9 Gastro-esophageal reflux disease without esophagitis; J30.9 Allergic rhinitis, unspecified; Z92.3 Personal history of irradiation; Z79.82 Long term (current) use of aspirin; Z79.4 Long term (current) use of insulin; Z79.899 Other long term (current) drug therapy; Z91.041 Radiographic dye allergy status; Z85.850 Personal history of malignant neoplasm of thyroid
CPT/HCPCS: 36415; 71010; 74176; 80048; 80053; 81003; 81015; 82150; 83605; 83690; 84484; 85025; 85060; 87077; 87086; 87186; 87641; 93005; 93306; 93454; A9270-GY; C1760; J1170; J1644; J1650; J2001; J2250; J2405; J2920; J3010

== ENCOUNTER 2017-04-17 06:18 | Day surgery (SDC) | payer MEDICARE ==
[~2017-04-17 06:18] MED LIST: Acetaminophen TAB* 325 MG PO PRN; Buffered Lidocaine 0.9% SYRIN* 5 ML/SYR SYRINGE INTRADERM ONE
[2017-04-17] MEDS ORDERED: Cyclopentolate 1% OPTH.SOL* 2 ML BTL ONE (07:06)
[2017-04-17] MEDS ORDERED: Lidocaine 2% EPI 1:200000 MPF* 20 ML VIAL ONE (07:06)
[2017-04-17] MEDS ORDERED: Lidocaine 1% MPF* 2 ML VIAL ONE (07:06)
[2017-04-17] MEDS ORDERED: Neomycin/Polymy/Dex OPTH.SUSP* MAXITROL 0.1% 5 ML ONE (07:06)
[2017-04-17] MEDS ORDERED: Proparacaine 0.5% OPHTH.SOL* 15 ML BTL ONE (07:06)
[2017-04-17] MEDS ORDERED: Buffered Lidocaine 0.9% SYRIN* 5 ML/SYR SYRINGE ONE (07:06)
[2017-04-17] MEDS ORDERED: Povidone Iodine 5% OPTH* 30 ML BTL ONE (07:06)
[2017-04-17] MEDS ORDERED: acetaZOLAMIDE TAB* 250 MG ONE (07:06)
[2017-04-17] MEDS ORDERED: Phenylephrine 2.5% OPTH.SOL* 2 ML BTL ONE (07:06)
[2017-04-17] MEDS ORDERED: Flurbiprofen 0.03% OPTH.SOL* 2.5 ML BTL ONE (07:06)
[2017-04-17] MEDS ORDERED: Midazolam* 1 MG/ML 2 ML VIAL (2 MG) ONE (07:19)
[2017-04-17 07:55] VITALS: BP 151/70
--- NOTE | 2017-04-17 08:58 | OP ---
DATE OF OPERATION: 04/17/17 [facility] DATE OF : 44 SURGEON: Jared Collins M.D. PREOPERATIVE DIAGNOSIS: Cataract, left eye. POSTOPERATIVE DIAGNOSIS: Cataract, left eye. OPERATIVE PROCEDURE: Phacoemulsification, left eye with IOL. DESCRIPTION OF PROCEDURE: The patient was brought to the operating room after being given 1/2% Alcaine with epinephrine drops in the preoperative area. The eye was prepped and draped in the usual sterile fashion. Sterile drape and eyelid speculum were placed. Again, topical 1/2% Alcaine with epinephrine was given. A paracentesis incision was made at the 3 o'clock position with the No.75 blade. Clear cornea incision 2.2 x 2.2-mm was created at the 6 o'clock position starting at the anterior limbus using the 2.2-mm keratome. The anterior chamber was irrigated with 0.4 mL of 1% non-preservative intracameral lidocaine and filled with DisCoVisc. A capsulorrhexis was completed using the cystotome and the Utrata forceps. Hydrodissection was performed with balanced salt solution. The lens nucleus was removed with the Phacoemulsification handpiece without incident. Cortex was removed with the irrigation-aspiration handpiece. The capsular bag was re-inflated using DisCoVisc and an [id number] implant was inserted with the shooter. The irrigation-aspiration handpiece was used to remove all residual DisCoVisc. The eye was refilled with balanced salt solution and the wound checked and found to be watertight. Topical Maxitrol drops were given. [id number]/[facility] #: [id number] [facility]
== END 2017-04-17 08:00 | disposition home or self-care (01) ==
LOC: OREAST 06:18
PROVIDERS: ATTEND Specialist
DX: H25.812 Combined forms of age-related cataract, left eye (principal); H43.813 Vitreous degeneration, bilateral; E03.9 Hypothyroidism, unspecified; E10.3293 Type 1 diabetes mellitus with mild nonproliferative diabetic retinopathy without macular edema, bilateral; Z79.4 Long term (current) use of insulin
CPT/HCPCS: A9270-GY; J2250; V2632

== ENCOUNTER 2017-04-24 06:29 | Day surgery (SDC) | payer MEDICARE ==
[2017-04-24] MEDS ORDERED: fentaNYL* 50 MCG/ML 2 ML VIAL (100 MCG VIAL) ONE (07:34)
[2017-04-24] MEDS ORDERED: Midazolam* 1 MG/ML 2 ML VIAL (2 MG) ONE (07:35)
[2017-04-24 08:17] VITALS: BP 129/73
--- NOTE | 2017-04-24 09:30 | OP ---
DATE OF OPERATION: 04/24/2017 - [facility] DATE OF : 1940. SURGEON: Jared Collins M.D. PREOPERATIVE DIAGNOSIS: Cataract right eye. POSTOPERATIVE DIAGNOSIS: Cataract right eye. OPERATIVE PROCEDURE: Phacoemulsification right eye with IOL. DESCRIPTION OF PROCEDURE: The patient was brought to the operating room after being given 1/2% Alcaine with epinephrine drops in the preoperative area. The eye was prepped and draped in the usual sterile fashion. Sterile drape and eyelid speculum were placed. Again, topical 1/2% Alcaine with epinephrine was given. A paracentesis incision was made at the 9 o'clock position with the No.75 blade. Clear cornea incision 2.2 x 2.2-mm was created at the 12 o'clock position starting at the anterior limbus using the 2.2-mm keratome. The anterior chamber was irrigated with 0.4 mL of 1% non-preservative intracameral lidocaine and filled with DisCoVisc. A capsulorrhexis was completed using the cystotome and the Utrata forceps. Hydrodissection was performed with balanced salt solution. The lens nucleus was removed with the Phacoemulsification handpiece without incident. Cortex was removed with the irrigation-aspiration handpiece. The capsular bag was re-inflated using DisCoVisc and an [id number] 18.5 implant was inserted with the shooter. The irrigation-aspiration handpiece was used to remove all residual DisCoVisc. The eye was refilled with balanced salt solution and the wound checked and found to be watertight. Topical Maxitrol drops were given. [id number]/[facility] #: [id number] [facility]
[2017-04-24] MEDS ORDERED: Flurbiprofen 0.03% OPTH.SOL* 2.5 ML BTL ONE (10:15)
[2017-04-24] MEDS ORDERED: Lidocaine 2% MPF* 2 ML VIAL ONE (10:15)
[2017-04-24] MEDS ORDERED: Proparacaine 0.5% OPHTH.SOL* 15 ML BTL ONE (10:15)
[2017-04-24] MEDS ORDERED: Cyclopentolate 1% OPTH.SOL* 2 ML BTL ONE (10:15)
[2017-04-24] MEDS ORDERED: Phenylephrine 2.5% OPTH.SOL* 2 ML BTL ONE (10:15)
[2017-04-24] MEDS ORDERED: acetaZOLAMIDE TAB* 250 MG ONE (10:15)
[2017-04-24] MEDS ORDERED: Neomycin/Polymy/Dex OPTH.SUSP* MAXITROL 0.1% 5 ML ONE (10:15)
[2017-04-24] MEDS ORDERED: Povidone Iodine 5% OPTH* 30 ML BTL ONE (10:15)
[2017-04-24] MEDS ORDERED: Lidocaine 2% EPI 1:200000 MPF* 20 ML VIAL ONE (10:15)
== END 2017-04-24 08:29 | disposition home or self-care (01) ==
LOC: OREAST 06:29
PROVIDERS: ATTEND Specialist
DX: H25.811 Combined forms of age-related cataract, right eye (principal); K21.9 Gastro-esophageal reflux disease without esophagitis; E11.9 Type 2 diabetes mellitus without complications; Z79.82 Long term (current) use of aspirin; Z79.4 Long term (current) use of insulin
CPT/HCPCS: A9270-GY; J2250; J3010; V2632

== ENCOUNTER 2017-06-23 13:17 | Inpatient (IN) | payer MEDICARE ==
[2017-06-23] MEDS ORDERED: NS 0.9% 1000 ML* 1,000 ML IV ONE (13:44)
[2017-06-23 14:06] LABS: Hematocrit 27 % (35-47); Hemoglobin 8.1 g/dl (12.0-16.0); Mean Corpuscular HGB Conc 30 g/dl (31-36); Mean Corpuscular Hemoglobin 19 pg (27-31); Mean Corpuscular Volume 62 fL (80-97); Mean Platelet Volume 10 um3 (7.4-10.4); Red Blood Count 4.38 10^6/ul (4.0-5.4); Red Cell Distribution Width 20 % (10.5-15); White Blood Count 18.6 10^3/ul (3.5-10.8)
[2017-06-23 14:09] LABS: BUN/Creatinine Ratio 40.3 (8-20); Calcium 8.1 mg/dL (8.6-10.3); EGFR African American 94.2 (>60); EGFR Non-African American 73.3 (>60); Globulin 2.8 g/dL (2-4); Potassium 4.4 mmol/L (3.5-5.0); Total Bilirubin 0.4 mg/dL (0.2-1.0); Total Protein 5.8 g/dL (6.4-8.9)
[2017-06-23 14:15] LABS: Add Diff/Slide Review? Manual Diff Added; Comments Flag Yes
[2017-06-23 14:28] LABS: Troponin I 0.04 ng/mL (<0.04)
[2017-06-23] MEDS ORDERED: Pantoprazole IV* 40 MG IV ONE (14:49)
--- NOTE | 2017-06-23 14:54 | RAD ---
Indication: Tachycardia. 2 views of the chest including dual energy PA views demonstrate no mediastinal shift. Heart is of normal size and configuration. Lung portillo appear hyperinflated. No pleural fluid, pneumonia or pneumothorax is noted. Overall no changes noted since March 29, 2017. IMPRESSION: Hyperinflated lung portillo without evidence of pneumonia.
[2017-06-23 15:01] LABS: Eosinophils % 1 % (0-6); Neutrophil % 81 % (38-83); Reactive Lymph % 2 % (0-6)
[2017-06-23 15:02] LABS: Hypochromasia 1+; Platelet Morphology Large
--- NOTE | 2017-06-23 15:04 | ED ---
Audie Elaine SooYoung, scribed for Jalyn Gonzalez MD on 06/23/17 at 1330 . Complex/Multi-Sys Presentation - HPI Summary HPI Summary: A 76 y/o F presents to ED with c/o CP and back pain onset around 0600 when she woke up. Associated sx: abd pain onset past few months, black stools 3x onset this AM, nausea, dizziness. Denies fever, chills, leg cramping. She's had elevated blood sugar, 450-460 recently. Pt had an endoscopy and biopsy yesterday , found erosion in her stomach but no bleeding. Endoscopy lasted no more than an hour. She felt fine yesterday. Aggravating factors: movement, deep breaths, sitting forward. She is on iron supplements but hasn't take it since Saturday. PMHx: DM, pancreatic CA. hypothyroid, tachy. Local oncologist is Dr. Jeff, also sees Dr. Fung at [facility]. She finished chemo in November 2015. PCP is Dr. Reveles. Denies blood thinners. - History Of Current Complaint Chief Complaint: EDAbdPain Hx Obtained From: Patient, Family/C[facility]enter [facility] Onset/Duration: Lasting Hours, Still Present Timing: Constant Severity Currently: Moderate Severity Initially: Moderate Aggravating Factor(s): movement, deep breaths, sitting forward Associated Signs And Symptoms: Positive: Dizziness, Chest Pain, Nausea, Abdominal Pain, Back Pain, Other - pos: black stools; neg: chills, leg cramps. Negative: Fever - Allergies/Home Medications Allergies/Adverse Reactions: Allergies Allergy/AdvReac Type Severity Reaction Status Date / Time Adhesive Tape Allergy Rash Verified 04/24/17 06:41 contrast dye Allergy Intermediate Palpitation Uncoded 04/24/17 06:41 s PMH/Surg Hx/FS Hx/Imm Hx Previously Healthy: No Endocrine/Hematology History: Reports: Hx Thyroid Disease, Hx Anemia - takes iron, Other Endocrine/Hematological Disorders Denies: Hx Diabetes Cardiovascular History: Reports: Hx Hypercholesterolemia, Other Cardiovascular Problems/Disorders - hx of tachycardia, followed by dr ko (last seen 04/10/17 for clearance) Denies: Hx Hypertension, Hx Pacemaker/ICD Respiratory History: Denies: Hx Asthma GI History: Reports: Hx Gall Bladder Disease, Hx Gastroesophageal Reflux Disease , Other GI Disorders - s/p whipple History: Reports: Other Problems/Disorders - bladder prolapse Musculoskeletal History: Denies: Hx Scoliosis Sensory History: Reports: Hx Cataracts - bilateral, Hx Contacts or Glasses, Hx Hearing Aid Opthamlomology History: Reports: Hx Cataracts - bilateral, Hx Contacts or Glasses Neurological History: Reports: Hx Seizures Denies: Hx Headaches, Other Neuro Impairments/Disorders Psychiatric History: Denies: Hx Panic Disorder - Cancer History Cancer Type, Location and Year: papillary thyroid with surgery 2006 Hx Chemotherapy: No Hx Radiation Therapy: No - Surgical History Surgery Procedure, Year, and Place: LT ROTATOR CUFF REPAIR,THYROIDECTOMY; hysterectomy 05/2013; incisional hernia 2013; Hx Anesthesia Reactions: No Infectious Disease History: Denies: Traveled Outside the [place] in Last 30 Days - Family History Known Family History: Positive: None Negative: Cardiac Disease, Hypertension, Diabetes - Social History Occupation: Retired Lives: With Family Alcohol Use: None Hx Substance Use: No Substance Use Type: Reports: None Hx Tobacco Use: No Smoking Status (MU): Never Smoked Tobacco Review of Systems Negative: Fever, Chills Positive: Chest Pain Positive: Abdominal Pain, Nausea, Other - pos: melena Positive: Other - pos: back pain; neg: leg cramping Neurological: Other - pos: dizziness All Other Systems Reviewed And Are Negative: Yes Physical Exam - Summary Physical Exam Summary: RECTAL: melena Triage Information Reviewed: Yes Vital Signs On Initial Exam: Initial Vitals Temp Pulse Resp BP Pulse Ox 98.2 F 91 20 80/49 98 06/23/17 13:19 06/23/17 13:19 06/23/17 13:19 06/23/17 13:19 06/23/17 13:19 Vital Signs Reviewed: Yes Appearance: Positive: Well-Appearing, No Pain Distress, Thin Skin: Positive: Warm, Skin Color Reflects Adequate Perfusion, Dry Eyes: Positive: EOMI, HARPER ENT: Positive: Pharynx normal, TMs normal Neck: Positive: Supple, Nontender Respiratory/Lung Sounds: Positive: Clear to Auscultation, Breath Sounds Present. Negative: Rales, Rhonchi, Wheezes Cardiovascular: Positive: RRR. Negative: Murmur, Rub, Other - neg: gallop Abdomen Description: Positive: Nontender, Soft. Negative: Distended, Guarding, Other: - neg: rebounding Bowel Sounds: Positive: Present Musculoskeletal: Positive: Strength/ROM Intact. Negative: Edema Left, Edema Right Neurological: Positive: Sensory/Motor Intact, Alert, Oriented to Person Place, Time, CN Intact II-III Psychiatric: Positive: Affect/Mood Appropriate Diagnostics - Vital Signs Vital Signs Temp Pulse Resp BP Pulse Ox 06/23/17 13:19 98.2 F 91 20 80/49 98 - Laboratory Lab Results: Lab Results 06/23/17 06/23/17 06/23/17 Range/Units 13:40 13:40 13:40 WBC 18.6 H (3.5-10.8) 10^3/ul RBC 4.38 (4.0-5.4) 10^6/ul Hgb 8.1 L (12.0-16.0) g/dl Hct 27 L (35-47) % MCV 62 L (80-97) fL MCH 19 L (27-31) pg MCHC 30 L (31-36) g/dl RDW 20 H (10.5-15) % Plt Count 320 (150-450) 10^3/ul MPV 10 (7.4-10.4) um3 Absolute Neuts (auto) Pending Absolute Lymphs (auto) Pending Absolute Monos (auto) Pending Absolute Eos (auto) Pending Absolute Basos (auto) Pending Absolute Nucleated RBC Pending Neutrophils % Pending Normal RBC Morphology Pending INR (Anticoag Therapy) 1.02 (0.89-1.11) APTT 30.6 (26.0-36.3) seconds Sodium 128 L (133-145) mmol/L Potassium 4.4 (3.5-5.0) mmol/L Chloride 94 L (101-111) mmol/L Carbon Dioxide 30 (22-32) mmol/L Anion Gap 4 (2-11) mmol/L BUN 31 H (6-24) mg/dL Creatinine 0.77 (0.51-0.95) mg/dL Est GFR ( Amer) 94.2 (>60) Est GFR (Non-Af Amer) 73.3 (>60) BUN/Creatinine Ratio 40.3 H (8-20) Glucose 434 H (70-100) mg/dL Calcium 8.1 L (8.6-10.3) mg/dL Total Bilirubin 0.40 (0.2-1.0) mg/dL AST 30 (13-39) U/L ALT 24 (7-52) U/L Alkaline Phosphatase 89 (34-104) U/L Troponin I 0.04 H* (<0.04) ng/mL Total Protein 5.8 L (6.4-8.9) g/dL Albumin 3.0 L (3.2-5.2) g/dL Globulin 2.8 (2-4) g/dL Albumin/Globulin Ratio 1.1 (1-3) Blood Type Antibody Screen 06/23/17 Range/Units 13:40 WBC (3.5-10.8) 10^3/ul RBC (4.0-5.4) 10^6/ul Hgb (12.0-16.0) g/dl Hct (35-47) % MCV (80-97) fL MCH (27-31) pg MCHC (31-36) g/dl RDW (10.5-15) % Plt Count (150-450) 10^3/ul MPV (7.4-10.4) um3 Absolute Neuts (auto) Absolute Lymphs (auto) Absolute Monos (auto) Absolute Eos (auto) Absolute Basos (auto) Absolute Nucleated RBC Neutrophils % Normal RBC Morphology INR (Anticoag Therapy) (0.89-1.11) APTT (26.0-36.3) seconds Sodium (133-145) mmol/L Potassium (3.5-5.0) mmol/L Chloride (101-111) mmol/L Carbon Dioxide (22-32) mmol/L Anion Gap (2-11) mmol/L BUN (6-24) mg/dL Creatinine (0.51-0.95) mg/dL Est GFR ( Amer) (>60) Est GFR (Non-Af Amer) (>60) BUN/Creatinine Ratio (8-20) Glucose (70-100) mg/dL Calcium (8.6-10.3) mg/dL Total Bilirubin (0.2-1.0) mg/dL AST (13-39) U/L ALT (7-52) U/L Alkaline Phosphatase (34-104) U/L Troponin I (<0.04) ng/mL Total Protein (6.4-8.9) g/dL Albumin (3.2-5.2) g/dL Globulin (2-4) g/dL Albumin/Globulin Ratio (1-3) Blood Type O Positive Antibody Screen Negative Result Diagrams: 06/23/17 13:40 06/23/17 13:40 Lab Statement: Any lab studies that have been ordered have been reviewed, and results considered in the medical decision making process. - Radiology CXR Xray Interpretation: Positive (See Comments) - IMPRESSION: Hyperinflated lung portillo without evidence of pneumonia. Radiology Interpretation Completed By: Radiologist - CT C/A/P CT CT Interpretation Completed By: Radiologist - Report pending. See [facility]. - EKG 1 Cardiac Rate: NL - 63bpm EKG Rhythm: Sinus Rhythm ST Segment: Non-Specific EKG Interpretation: with LVH EKG Comparison: No Significant Change - from EKG on 03/30/2017 Complex Multi-Symp Course/Dx Course Of Treatment: 76 yo female with pancreatic cancer s/p endoscopy yesterday at [facility] for ongoing abdominal discomfort which pt reports showed some gastric erosions woke up this am with both cp that is positional better lying back then forward and dark tarry stools. She has melena from below and is awaiting a CT scan with po contrast only of her chest/abd/pelvis to rule out perforation as the cause of the chest pain. A ddimer has not been done despite PE being in the work up but it seems unlikely as the pain and the stools are likely from one etiology and she wouldn't be a good candidate for anticoagulation as she is having a GI bleed. Her ekg is unchanged and her trop is .04. Protonix has been started and the pt has been accepted for admission by Dr. Francisco. She is still awaiting her CT. her Hg is 8 and this was discussed with Dr. Francisco who felt the type and screen was sufficient for now. - Diagnoses Provider Diagnoses: Chest pain, GI bleed - Physician Notifications Discussed Care Of Patient With: Carey Francisco - hospitalist Time Discussed With Above Provider: 14:22 Instructed by Provider To: Admit As Inpatient - Critical Care Time Critical Care Time: 30-74 min - 30 minutes Discharge - Discharge Plan Condition: Stable Disposition: ADMITTED TO [facility] Referrals: Mj Reveles MD [Primary Care Provider] - The documentation as recorded by the scribe, VanDeMark,SooYoung accurately reflects the service I personally performed and the decisions made by me, Jalyn Gonzalez MD.
[2017-06-23] MEDS: Pantoprazole IV* 80 MG in NS 0.9% 250 ML* 250 ML IV SCH (15:57)
[2017-06-23] MEDS ORDERED: Insulin REGULAR(*) 1 UNITS UNIT SUBCUT ONE (16:26)
--- NOTE | 2017-06-23 17:05 | RAD ---
Indication: Pancreatic cancer status post endoscopy with GI bleed and chest pain. CT of the chest, abdomen and pelvis was performed after oral contrast administration. No IV contrast was given. Comparison is made with previous exam dated March 30, 2017. Coronal and sagittal reconstructed images were obtained. Inferior thyroid lobes are unremarkable. Small 3 to 5 mm pretracheal and subcarinal lymph nodes are noted. The heart demonstrates no pericardial effusion. The lung portillo demonstrate emphysematous changes. No definite nodules are noted in the lung portillo. No alveolar consolidation is noted. The sternum and thoracic bony structures are otherwise unremarkable. The axilla demonstrates no adenopathy. CT of the abdomen and pelvis demonstrates no focal lesions in the liver. No intrahepatic ductal dilatation is noted. Multiple surgical clips are noted in the region of the pancreatic head. This is presumed postoperative change from Whipple's procedure. Surgical clips are noted. Small bowel demonstrates no abnormal dilatation. Contrast is noted in the right colon. There may be some scattered mesenteric and left periaortic lymph nodes noted. This is not significantly changed since previous exam. The urinary bladder is unremarkable. No hernias are noted. No free fluid is noted in the pelvis. IMPRESSION: Postoperative changes are noted. No definite fluid collections are identified. No free fluid is identified. No evidence of bowel obstruction is noted. Small mediastinal lymph nodes are noted.
[2017-06-23] MEDS ORDERED: NS 0.9% 1000 ML* 1,000 ML IV SCH (18:30)
[2017-06-23 18:34] LABS: Comments Flag Yes; Hematocrit 26 % (35-47); Hemoglobin 7.4 g/dl (12.0-16.0)
--- NOTE | 2017-06-23 19:11 | HP ---
H&P (Free Text) History and Physical: Reason for consultation: GI bleeding HPI: Ms. Jung is a 76 year old female with past medical history significant for previous pancreatic cancer diagnosed in 2016 s/p total pancreatectomy and chemotherapy now with gastro-jejunal anastomosis, splenectomy, and cholecystectomy who presents to ER complaining of melena and dizziness. Patient was recently seen in GI lab yesterday for elective EGD and underwent biopsies of gastric erosions. She states she felt well after procedure and ate well. However, this morning she began having chest discomfort, dizziness, and started passing black tarry stools. She explains that she had approximately eight BMs with tarry stools and eventually blood. She called her outside GI who urged her to go to her local ER for evaluation. She denies any melena or hematochezia prior. No recent NSAIDs. Does take a baby ASA but has taken in it 1 week. In ED , she was noted to initially hypotensive and GEN:anemic to 8s. GI consulted for evaluation. CT done showed no evidence of free air. EKG and cardiac enzymes initially negative. REVIEW OF SYSTEMS: 10 point review of systems noted and negative unless mentioned in HPI PAST MEDICAL HISTORY History of IPMN and later pancreatic cancer s/p total pancreatectomy Diabetes GERD Hyperlipidemia Hypothyroidism MEDICATIONS Active Medications Generic Name Dose Route Start Last Admin Trade Name Freq PRN Reason Stop Dose Admin Ascorbic Acid 500 mg 06/23/17 18:00 Vitamin C Tab* PO QPM CRYSTAL Atenolol 25 mg 06/24/17 09:00 Tenormin Tab* PO QAM CRYSTAL Atorvastatin Calcium 10 mg 06/23/17 21:00 Lipitor* PO BEDTIME CRYSTAL Pantoprazole Sodium 80 mg/ 250 mls @ 25 mls/hr 06/23/17 15:00 06/23/17 15:57 Sodium Chloride IV 25 mls/hr Q10H CRYSTAL Administration Sodium Chloride 1,000 mls @ 75 mls/hr 06/23/17 18:30 Ns 0.9% 1000 Ml* IV PER RATE CRYSTAL Insulin Glargine 7 units 06/24/17 09:00 Lantus(*) SUBCUT 0900 [facility] Insulin Glargine 5 units 06/23/17 21:00 Lantus(*) SUBCUT 2100 [facility] Insulin Human Lispro 2 units 06/23/17 21:00 Humalog* SUBCUT QID CRYSTAL Levothyroxine Sodium 175 mcg 06/24/17 09:00 Synthroid Tab* PO QAM [facility] Pancrelipase 36,000 units 06/24/17 08:00 Creon (Nf) PO TID WITH MEALS CRYSTAL Social History , denies tobacco use and alcohol Family history: no family history of colorectal cancer or pancreatic cancer ALL: Adhesive tape, contrast dye VITALS: Initial Vital Signs Temp 98.2 F 06/23/17 13:19 Pulse 91 06/23/17 13:19 Resp 20 06/23/17 13:19 BP 80/49 06/23/17 13:19 Pulse Ox 98 06/23/17 13:19 GEN: Elderly female, pleasant sitting in no acute distress;obvious pallor HEENT: anicteri sclera CHEST: right chest well healed scar, no reproducible tenderness, clear bilaterally CV: Regular rate rhythm s1 s2 no rubs or gallops ABD: soft, nontender, healed scars, hyperactive bowel sounds, rectal exam deferred till time of endoscopy EXT: no edema, warm well perfused SKIN: + pallor LABS: Laboratory Last Values WBC 18.6 10^3/ul (3.5-10.8) H 06/23/17 13:40 RBC 4.38 10^6/ul (4.0-5.4) 06/23/17 13:40 Hgb 7.4 g/dl (12.0-16.0) L 06/23/17 18:19 Hct 26 % (35-47) L 06/23/17 18:19 MCV 62 fL (80-97) L 06/23/17 13:40 MCH 19 pg (27-31) L 06/23/17 13:40 MCHC 30 g/dl (31-36) L 06/23/17 13:40 RDW 20 % (10.5-15) H 06/23/17 13:40 Plt Count 320 10^3/ul (150-450) 06/23/17 13:40 MPV 10 um3 (7.4-10.4) 06/23/17 13:40 Absolute Neuts (auto) 15.8 10^3/ul (1.5-7.7) H 06/23/17 13:40 Absolute Lymphs (auto) 2.8 10^3/ul (1.0-4.8) 06/23/17 13:40 Absolute Monos (auto) 0.6 10^3/ul (0-0.8) 06/23/17 13:40 Absolute Eos (auto) 0.2 10^3/ul (0-0.6) 06/23/17 13:40 Absolute Basos (auto) 0 10^3/ul (0-0.2) 06/23/17 13:40 Absolute Nucleated RBC 0 10^3/ul 06/23/17 13:40 Neutrophils % 81 % (38-83) 06/23/17 13:40 Lymphocytes % 13 % (25-47) L 06/23/17 13:40 Reactive Lymphs % 2 % (0-6) 06/23/17 13:40 Monocytes % 3 % (0-13) 06/23/17 13:40 Eosinophils % 1 % (0-6) 06/23/17 13:40 Nucleated RBCs/100 WBC 1 (0-0) H 06/23/17 13:40 Platelet Morphology Large 06/23/17 13:40 Normal RBC Morphology Not Reportable 06/23/17 13:40 Hypochromasia 1+ 06/23/17 13:40 INR (Anticoag Therapy) 1.02 (0.89-1.11) 06/23/17 13:40 APTT 30.6 seconds (26.0-36.3) 06/23/17 13:40 Sodium 128 mmol/L (133-145) L 06/23/17 13:40 Potassium 4.4 mmol/L (3.5-5.0) 06/23/17 13:40 Chloride 94 mmol/L (101-111) L 06/23/17 13:40 Carbon Dioxide 30 mmol/L (22-32) 06/23/17 13:40 Anion Gap 4 mmol/L (2-11) 06/23/17 13:40 BUN 31 mg/dL (6-24) H 06/23/17 13:40 Creatinine 0.77 mg/dL (0.51-0.95) 06/23/17 13:40 Est GFR ( Amer) 94.2 (>60) 06/23/17 13:40 Est GFR (Non-Af Amer) 73.3 (>60) 06/23/17 13:40 BUN/Creatinine Ratio 40.3 (8-20) H 06/23/17 13:40 Glucose 434 mg/dL (70-100) H 06/23/17 13:40 Calcium 8.1 mg/dL (8.6-10.3) L 06/23/17 13:40 Total Bilirubin 0.40 mg/dL (0.2-1.0) 06/23/17 13:40 AST 30 U/L (13-39) 06/23/17 13:40 ALT 24 U/L (7-52) 06/23/17 13:40 Alkaline Phosphatase 89 U/L (34-104) 06/23/17 13:40 Troponin I 0.03 ng/mL (<0.04) 06/23/17 18:47 Total Protein 5.8 g/dL (6.4-8.9) L 06/23/17 13:40 Albumin 3.0 g/dL (3.2-5.2) L 06/23/17 13:40 Globulin 2.8 g/dL (2-4) 06/23/17 13:40 Albumin/Globulin Ratio 1.1 (1-3) 06/23/17 13:40 Blood Type O Positive 06/23/17 13:40 Antibody Screen Negative 06/23/17 13:40 CT: Independently revealed post-op changes in multiple surgical clips but no apparent free air or obstruction. Impression: 76 year old female with recent EGD with biopsies for gastric erosions now here with apparent GI bleeding. Etiology may be secondary to biopsies or other pathology such as anastomotic ulcer, dieulafoy's, malignancy, AVMs, or less likely small bowel or colonic source. It is atypical to have significant bleeding for mucosal biopsies but it is possible that erosion were adjacent to visible vessel causing continued bleeding. CT reviewed without evidence of perforation. Lab notable for anemia and elevated BUN suggesting UGI bleeding. Recommendations: 1. Please place 2 large bore IVs, type and screen and transfuse to if Hb<7. Please place 2 units of PRBCs on hold. 2. Start pantoprazole infusion 3. H/H q6, CMP daily 4. Keep NPO for urgent EGD today. Follow up recommendations after EGD.
[2017-06-23] MEDS ORDERED: fentaNYL* 50 MCG/ML 2 ML VIAL (100 MCG VIAL) ONE (19:59)
[2017-06-23] MEDS ORDERED: Midazolam* 1 MG/ML 10 ML VIAL (10 MG) ONE (19:59)
[2017-06-23] MEDS: Ascorbic Acid TAB* 500 MG PO SCH (20:59)
[2017-06-23] MEDS ORDERED: Insulin GLARGINE(*) 1 UNITS UNIT SUBCUT SCH ×2 (21:00)
[2017-06-23] MEDS ORDERED: Insulin LISPRO* 1 UNITS UNIT SUBCUT SCH (21:00)
--- NOTE | 2017-06-23 21:13 | PN ---
Progress Note - Progress Note Date of Service: 06/23/17 Note: BRIEF OPERATIVE NOTE: EGD to gastro-jejunal anastomosis Gastric ulcer with visible oozing of blood in gastric body s/p 3 hemoclips with apparent hemostasis No evidence of active bleeding in gastrojejunal anastomosis. Impression: GI bleeding from gastric ulcer s/p hemostasis Plan: 1. H/H q6 and transfuse if Hb <7. 2. CMP in am 3. Clears ok overnight and advance diet in am 4. Twice daily IV Ppi
[2017-06-23] MEDS ORDERED: Heparin VIAL(*) 5000 UNITS/ML VIAL (FIVE THOUSAND) SUBCUT SCH (22:00)
--- NOTE | 2017-06-23 22:12 | PRO ---
DATE OF PROCEDURE: 06/23/17 - ROOM #ICU-06 PROCEDURE PERFORMED: EGD with control of bleeding using 3 Hemoclips. MEDICATIONS GIVEN: Versed 4 mg, Fentanyl 50 mcg. NARRATIVE: Ms. Jung is a 76-year-old female with a history of pancreatic cancer and status post total pancreatectomy in 2016 and recent EGD with biopsies. She underwent an EGD with biopsies yesterday at an outside facility and today she developed melena as well as hematochezia. DESCRIPTION OF PROCEDURE: After the risks and benefits of the procedure were discussed in detail, she verbalized understanding and agreed to the procedure. Written consent was obtained. The patient was placed in the left lateral decubitus position and conscious sedation was administered. The gastroscope was successfully advanced periorally to the gastrojejunal anastomosis. The esophagus appeared completely normal. In the fundus, there was a large clot noted and after vigorous suctioning and irrigation, a visible vessel with underlying ulcer was visualized. Using 3 Hemoclips, I successfully was able to achieve hemostasis. After vigorous irrigation, the rest of her stomach was cleared for active bleeding and old blood. There were no lesions seen on retroflexion. I advanced the gastroscope again to the gastrojejunal anastomosis and I did not see any evidence of mucosal injury or active bleeding. There was hematin in the jejunal anastomosis, but otherwise no evidence of active bleeding. Again, I visualized the fundus on retroflexion and there was no active bleeding. I withdrew the scope into the esophagus and again there was no evidence of mucosal injury. The patient tolerated the procedure well without difficulty. There were no immediate complications. The patient was transferred to recovery area and eventually to her room for further observation. IMPRESSION: Gastric ulcer with active bleeding, status post 3 Hemoclips with successful hemostasis. RECOMMENDATIONS: 1. The patient can be started on a clear liquid diet 2. Start IV PPI twice daily. 3. Check H and H every 6 hours and CMP in the morning. 4. Transfer to ICU for further observation. 5. Advance diet in the morning if H and H is stable. [id number]/CPS #: [id number] [facility]
[2017-06-23 22:57] LABS: Hematocrit 24 % (35-47); Hemoglobin 7.1 g/dl (12.0-16.0)
[2017-06-23 22:58] LABS: Comments Flag Yes
[2017-06-23] MEDS: Atorvastatin* 10 MG TAB PO SCH (23:45)
--- NOTE | 2017-06-24 00:42 | HP ---
CC: Dr. Johnson * [facility] MEDICINE HISTORY AND PHYSICAL: DATE OF ADMISSION: 06/23/17 PRIMARY CARE PHYSICIAN: Dr. Johnson. ATTENDING PHYSICIAN: Carey Francisco DO * (dictation provided by Ronna Olson NP ) CHIEF COMPLAINT: Dark tarry stool and then bright red blood per rectum. HISTORY OF PRESENT ILLNESS: Ms. Jung is a 76-year-old female with a past medical history of pancreatic cancer status post Whipple procedure that included removal of her gallbladder and spleen. She now has diabetes and is on insulin. She reports that she has had ongoing intermittent epigastric discomfort for quite sometime. This preceded her diagnosis of pancreatic cancer. She states for this intermittent and variable discomfort, she has had 3 upper endoscopy procedures in the past. She was diagnosed with GERD in the past. Recently, she has been having epigastric discomfort after eating. She describes feeling a gnawing, empty feeling in her stomach. She went to [facility] for an upper endoscopy yesterday. Per the patient's report, she was told that she had some erosive areas, but no active ulcer or bleeding. She was also told that a biopsy was taken at that time. The patient states she felt very well afterwards and had a large meal. This morning at 6 a.m., she woke suddenly with severe pain in her chest. She states that the pain occurred when she sat up and when she was walking, but was relieved with lying flat. At 7 a.m., she had large dark tarry stool and then presented to the emergency room. Since being in the emergency room, she has had 4 to 5 bowel movements with black tarry stools, now mixed in with blood. She reports being lightheaded when getting up to out of bed. In the emergency room, Ms. Jung's hemoglobin was 8.1. Her most recent hemoglobin was 10 back in March 2017; however, I note that since June last year , she has had anemia running 8 to 10. Her white blood cell count is 18. This has also been elevated since January of this year. She had a chest, abdomen, and pelvis CT, which showed no acute abnormality. Her vitals are stable PAST MEDICAL HISTORY: 1. Pancreatic cancer with Whipple procedure including splenectomy and cholecystectomy. 2. Insulin-dependent type 2 diabetes. 3. Paroxysmal SVT. 4. Hypothyroidism after Tramaine's thyroiditis and thyroidectomy as a child. 5. Hyperlipidemia. 6. GERD. 7. Iron deficiency anemia. 8. Allergic rhinitis. 9. History of epilepsy as child. 10. The patient had cardiac catheterization on 04/01/17, showing clean coronary arteries. MEDICATIONS: 1. Aspirin 81 mg p.o. q.p.m. 2. Cholecalciferol 2000 units p.o. q.p.m. 3. Levemir 7 units in the a.m. and 5 units in the p.m. 4. Multivitamin with mineral 1 tab p.o. q.p.m. 5. Polysaccharide iron complex 150 mg p.o. q.p.m. 6. Ramipril 2.5 mg p.o. q.p.m. 7. Sucralfate 10 mL p.o. q.6 hours p.r.n. 8. Ascorbic acid 500 mg p.o. q.p.m. 9. Atenolol 25 mg p.o. q.a.m. 10. Atorvastatin 10 mg p.o. at bedtime. 11. NovoLog insulin via sliding scale with meals. 12. Levothyroxine 175 mcg p.o. q.a.m. 13. Pancrelipase 88173 units p.o. t.i.d. with meals. ALLERGIES: ADHESIVE TAPE, IODINATED CONTRAST, DIAGNOSTIC AGENTS. FAMILY HISTORY: The patient's sister has Felicity-Danlos syndrome. SOCIAL HISTORY: No report of alcohol or tobacco or drug use. The patient lives with her who is the healthcare proxy. REVIEW OF SYSTEMS: A 14-point review of systems was completed with Ms. Jung and all those not mentioned above were negative. PHYSICAL EXAMINATION GENERAL: Ms. Jung is sitting on the bed. She is in no acute distress. VITAL SIGNS: Temperature 97.4, heart rate 75, respiratory rate 18, O2 saturation 96% on room air, blood pressure 130/63. LUNGS: Clear to auscultation bilaterally with no accessory muscle use and good aeration. HEART: S1, S2. No murmur, rub, or gallop and regular. ABDOMEN: Soft, nontender with bowel sounds positive x4. NEURO: She is alert. She is oriented x3. She moves all extremities equally. There is no facial asymmetry or focal weakness. Extraocular movements are intact. EXTREMITIES: No cyanosis or edema. SKIN: Intact. LABORATORY DATA/DIAGNOSTIC STUDIES: WBC 18, hemoglobin 8.1, hematocrit 27, platelet count 320. INR 1.02. Sodium 128, potassium 4.4, chloride 94, serum bicarbonate 30, BUN 31, creatinine 0.77, glucose 134. Troponin 0.04. Chest, abdomen, and pelvis CT is read as follows: "Postoperative changes are noted. No definite fluid collections are identified. No free fluid is identified. No evidence of bowel obstruction is noted." ASSESSMENT: Ms. Jung is a 76-year-old female with past medical history of pancreatic cancer status post Whipple procedure with removal of gallbladder and spleen as well. She now has diabetes and is insulin dependent. She has had epigastric discomfort for some time and yesterday had an endoscopy at [facility] where she was found to have erosions, but no evidence of bleeding or ulcerization. She apparently had a biopsy taken at that time. She presents today with dark tarry stool and bright red blood per rectum. Our plans are for inpatient admission with expected length of stay greater than 2 days for the followin. GI bleed: The patient's hemoglobin is 8.1, which is down from her last known hemoglobin of 10.4, but in keeping with her history of anemia. Plan to recheck now. She is lightheaded but her vitals are stable. Plan to provide IV fluids and blood products as needed. I have consulted Dr. Harris, who will be seeing her today from Gastroenterology. I am concerned that she is bleeding from the biopsy site. Fortunately, the CT abdomen and pelvis does not show any evidence of perforation or other abnormality. 2. Type 2 diabetes. Plan to continue insulin with NovoLog and Lantus. She will have blood glucoses q.a.c. 3. Hypertension. With her paroxysmal supraventricular tachycardia, plan to continue atenolol at low dose, but hold her Ramipril secondary to GI bleed. 4. Hyperlipidemia. Continue atorvastatin. 5. History of pancreatic cancer. Continue pancrelipase when she is eating. 6. DVT prophylaxis with SCDs. 7. Code status is full code. TIME SPENT: Approximately 60 minutes was spent on the admission of this patient , more than half time spent with the patient at the bedside reviewing the events leading up to this hospitalization, performing the physical examination, and reviewing the plan of care. RONNA OLSON MEDICAL CONCIERGE [id number]/[facility] #: [id number] [facility] DIVISIONRoxi
[2017-06-24] MEDS ORDERED: Dextrose 50% Syringe 50 ML* 25 GM/50 ML SYRINGE IV PUSH PRN (01:39)
[2017-06-24] MEDS: Pantoprazole IV* 80 MG in NS 0.9% 250 ML* 250 ML IV SCH (01:50)
[2017-06-24 02:13] LABS: Hematocrit 26 % (35-47); Hemoglobin 7.8 g/dl (12.0-16.0)
[2017-06-24 02:14] LABS: Comments Flag Yes
[2017-06-24 07:26] LABS: Hematocrit 24 % (35-47); Hemoglobin 7.3 g/dl (12.0-16.0); Mean Corpuscular HGB Conc 30 g/dl (31-36); Mean Corpuscular Hemoglobin 20 pg (27-31); Mean Platelet Volume 10 um3 (7.4-10.4); Red Blood Count 3.74 10^6/ul (4.0-5.4); Red Cell Distribution Width 23 % (10.5-15); White Blood Count 26.8 10^3/ul (3.5-10.8)
[2017-06-24 07:27] LABS: Add Diff/Slide Review? Slide Review Added; Comments Flag Yes; Mean Corpuscular Volume 65 fL (80-97)
[2017-06-24 07:30] LABS: Albumin 2.6 g/dL (3.2-5.2); BUN/Creatinine Ratio 40.6 (8-20); Calcium 7.9 mg/dL (8.6-10.3); EGFR Non-African American 83.2 (>60); Globulin 2.4 g/dL (2-4); Potassium 3.6 mmol/L (3.5-5.0); Total Bilirubin 0.7 mg/dL (0.2-1.0)
[2017-06-24] MEDS ORDERED: Insulin LISPRO* 1 UNITS UNIT SUBCUT SCH (07:30)
[2017-06-24] MEDS: PTO:Pancrelipase (NF) 12,000 UNITS CAP.DR PO SCH ×3 (08:00→17:57)
[2017-06-24] MEDS ORDERED: Omeprazole CAP* 20 MG PO SCH (09:00)
[2017-06-24] MEDS ORDERED: Insulin GLARGINE(*) 1 UNITS UNIT SUBCUT SCH ×2 (09:00)
--- NOTE | 2017-06-24 09:42 | PN ---
Progress Note - Progress Note Date of Service: 06/24/17 SOAP: Subjective: []Feeling better today. Ordered a big breakfast, no abdominal pain. Still dark BM. No fevers. Had had EGD on Sat and then Sun am felt dizzy, weak, spots in eyes and then 2 large bloody stools. EGD - Bleeding ulcer, 3 clips placed. Ascorbic Acid (Vitamin C Tab*) 500 mg PO QPM [facility] Last Admin: 06/23/17 20:59 Dose: Not Given Atenolol (Tenormin Tab*) 25 mg PO QAM [facility] Atorvastatin Calcium (Lipitor*) 10 mg PO BEDTIME [facility] Last Admin: 06/23/17 23:45 Dose: 10 mg Dextrose (D50w Syringe 50 Ml*) 12.5 gm IV PUSH .FOR FS < 60 - SS PRN PRN Reason: FS < 60 Sodium Chloride (Ns 0.9% 1000 Ml*) 1,000 mls @ 75 mls/hr IV PER RATE [facility] Last Admin: 06/23/17 19:20 Dose: 75 mls/hr Insulin Glargine (Lantus(*)) 7 units SUBCUT 0900 [facility] Last Admin: 06/24/17 08:09 Dose: Not Given Insulin Glargine (Lantus(*)) 5 units SUBCUT 2100 [facility] Last Admin: 06/23/17 23:45 Dose: 5 unit Insulin Human Lispro (Humalog*) 0 units SUBCUT ACHS [facility] PRN Reason: Protocol Levothyroxine Sodium (Synthroid Tab*) 175 mcg PO QAM [facility] Pancrelipase (Creon (Nf)) 36,000 units PO TID WITH MEALS [facility] Objective: [] Vital Signs Temp Pulse Resp BP Pulse Ox 99.8 F 77 19 136/72 97 06/24/17 08:00 06/24/17 08:01 06/24/17 08:01 06/24/17 08:00 06/24/17 08:01 HEENT - Pale, no oral lesions CTA RRR S1S2, 80s +BS NT ND, no HSM Ext warm and good pulses, no edema. Assessment: []76 year old who completed adjuvant chemotherapy pancreatic cancer presents with acute on chronic GIB. Ulcer on EGD last night, clipped and appears stable today. Plan: []1. Tx 1 additional unit PRBC 2. IV PPI and then PPI on discharge 3. Hold on heparin/Lovenox today, compression stocking and ambulate for DVT prophylaxis. 4. Will discuss with GI if can go to floor today. Will be on Oncology service through admission. 5. Has completed all therapy for pancreatic cancer.
[2017-06-24] MEDS: Levothyroxine TAB* 175 MCG TAB PO SCH (10:32)
[2017-06-24] MEDS: Atenolol TAB* 25 MG PO SCH (10:32)
[2017-06-24] MEDS: Pantoprazole IV* 80 MG in NS 0.9% 250 ML* 250 ML IVPB SCH (12:43)
[2017-06-24 15:17] LABS: Comments Flag Yes; Hematocrit 28 % (35-47); Hemoglobin 8.5 g/dl (12.0-16.0)
[2017-06-24] MEDS: Ascorbic Acid TAB* 500 MG PO SCH (17:57)
[2017-06-24] MEDS ORDERED: Acetaminophen TAB* 325 MG PO PRN (18:31)
[2017-06-24] MEDS ORDERED: Acetaminophen TAB* 325 MG ONE (18:35)
[2017-06-24 20:09] LABS: Hematocrit 27 % (35-47); Hemoglobin 8.1 g/dl (12.0-16.0)
[2017-06-24 20:17] LABS: Comments Flag Yes
[2017-06-24] MEDS: Atorvastatin* 10 MG TAB PO SCH (20:55)
[2017-06-25] MEDS: Pantoprazole IV* 80 MG in NS 0.9% 250 ML* 250 ML IVPB SCH ×2 (00:24→10:34)
[2017-06-25 01:00] LABS: Hematocrit 23 % (35-47); Hemoglobin 7.3 g/dl (12.0-16.0)
[2017-06-25 01:11] LABS: Comments Flag Yes
[2017-06-25 07:05] LABS: Hematocrit 26 % (35-47); Mean Corpuscular HGB Conc 30 g/dl (31-36); Mean Corpuscular Hemoglobin 21 pg (27-31); Mean Corpuscular Volume 68 fL (80-97); Mean Platelet Volume 10 um3 (7.4-10.4); Red Blood Count 3.88 10^6/ul (4.0-5.4); Red Cell Distribution Width 25 % (10.5-15); White Blood Count 21.8 10^3/ul (3.5-10.8)
[2017-06-25 07:06] LABS: Comments Flag Yes
[2017-06-25 07:07] LABS: Add Diff/Slide Review? Manual Diff Added
[2017-06-25 07:38] LABS: Eosinophils % 6 % (0-6); Hypochromasia 2+; Immature Granulocytes 1 % (0-9); Microcytosis 2+; Myelocytes % 1 % (0-1); Neutrophil % 72 % (38-83); Polychromasia 1+; Reactive Lymph % 1 % (0-6); Target Cells 1+
[2017-06-25 07:56] LABS: Albumin 2.8 g/dL (3.2-5.2); BUN/Creatinine Ratio 30.9 (8-20); Calcium 7.8 mg/dL (8.6-10.3); EGFR African American 108.8 (>60); EGFR Non-African American 84.6 (>60); Globulin 2.5 g/dL (2-4); Potassium 3.8 mmol/L (3.5-5.0); Total Bilirubin 0.5 mg/dL (0.2-1.0); Total Protein 5.3 g/dL (6.4-8.9)
[2017-06-25] MEDS: PTO:Pancrelipase (NF) 12,000 UNITS CAP.DR PO SCH ×2 (09:20→13:58)
[2017-06-25] MEDS: Atenolol TAB* 25 MG PO SCH (09:20)
[2017-06-25] MEDS: Levothyroxine TAB* 175 MCG TAB PO SCH (09:20)
[2017-06-25 11:27] VITALS: BP 135/55
--- NOTE | 2017-06-25 15:44 | DS ---
CC: Dr. Kingsley * DISCHARGE SUMMARY: DATE OF ADMISSION: 06/23/17 DATE OF DISCHARGE: 06/25/17 ATTENDING PHYSICIAN: Phillip Rick MD * (DICTATED BY EVIN ARTEAGA NP) DISCHARGE DIAGNOSES: 1. Acute upper gastrointestinal bleed: Resolved following EGD with clip. 2. Insulin-dependent diabetes, post pancreatectomy: Stable. 3. Hypothyroidism: Stable on current meds. 4. Personal history of pancreatic cancer: 8 months post adjuvant therapy with no evidence of disease on recent imaging. DISCHARGE MEDICATIONS: 1. Acetaminophen 650 mg p.o. q.4 hours p.r.n. pain. 2. Pantoprazole 40 mg p.o. b.i.d. x2 weeks and then daily x2 weeks. 3. Levothyroxine 175 mcg p.o. q.a.m. 4. Atorvastatin 10 mg p.o. q.h.s. 5. Atenolol 25 mg p.o. q.a.m. 6. Creon 36,000 units p.o. t.i.d. with meals. 7. Poly-Iron 150 mg p.o. q. evening. 8. Ramipril 2.5 mg p.o. q. evening. 9. Levemir FlexTouch 5 units subq q. evening. 10. Levemir FlexTouch 7 units subq q.a.m. 11. Multivitamin 1 tab p.o. q. evening. 12. NovoLog FlexPen 2 units subq q.i.d. 13. Vitamin D 2000 units p.o. q. evening. 14. Vitamin C 500 mg p.o. q. evening. 15. Carafate suspension 10 mL p.o. q.6 hours p.r.n. stomach pain. *STOP ASPIRIN* HOSPITAL COURSE: Please see admission note for full H and P. However, briefly , Ms. Jung is well known to our service due to her diagnosis of pancreatic cancer in March 2016, now post surgery and adjuvant gemcitabine and Xeloda, completed in November 2016. Ms. Jung had been doing very well in recovery of her treatment and most recently received an EGD at [facility] ( where her cancer care has been directed) due to recent upset stomach. Her EGD was completed over the weekend and unfortunately she developed dark, tarry stools with streaks of blood the following day. She called her GI doctor in [facility] and they instructed her to go to her local hospital. In the ER, Ms. Jung' hemoglobin was 8.1 and hematocrit 27. She received a CT scan of her chest, abdomen, and pelvis with no evidence for bowel obstruction. In the ER, she was lightheaded, but had stable vitals; however, with a drop in her hemoglobin from baseline around 10 last drawn in March, the decision was made to admit her for evaluation. To note, the EGD done previously in [facility] also included a biopsy and therefore it was felt this would likely be the spot for her bleed. On the evening of the , Ms. Jung was seen by Dr. Harris in consultation for her GI bleed, at which time he completed an urgent EGD. Urgent EGD completed that evening revealed gastric ulcer with active bleeding. Dr. Harris placed 3 Hemoclips with successful hemostasis. The following day, Ms. Jung was transferred out of the ICU to the medical floor and per recommendations following the EGD, she received PPI via IV. During her admission, she received 1 unit of packed red blood cells on admission and 1 unit of packed red blood cells the following day. Today, Ms. Pleitez hemoglobin and hematocrit have improved dramatically from 7.3 and 23 to 8 and 26. She has been stable since her EGD and is feeling very well. At this point , she would like very much to go home and states excellent understanding of need for followup with Dr. Kingsley, continued PPI, and follow up with her oncologist, both locally and in [facility]. On discharge, she will have her aspirin held and I have instructed her regarding attempts to avoid further ulcers. She states good understanding of instructions for PPI administration. She will contact Dr. Kingsley independently to set up a followup appointment and she will see Dr. Jeff as previously scheduled on 07/18/17 for 3-month followup. Plan of care was reviewed at length with both, Ms. Jung and her . TIME SPENT: Greater than 40 minutes spent with greater than 50% in face-to- face counseling. EVIN ARTEAGA BOILERS INSPECTOR [id number]/[facility] #: [id number] [facility]
== END 2017-06-25 14:15 | disposition home or self-care (01) | DRG 379 ==
LOC: ED 13:17 → MEDTELE 17:38 → ICU 22:24 → MED 06-24 15:18
PROVIDERS: ADMIT Hospitalist; ATTEND Internal Medicine Hematology & Oncology
PROC: 30233N1 Transfusion of Nonautologous Red Blood Cells into Peripheral Vein, Percutaneous Approach (ICD-10-PCS; principal; 2017-06-23)
PROC: 0W3P8ZZ Control Bleeding in Gastrointestinal Tract, Via Natural or Artificial Opening Endoscopic (ICD-10-PCS; 2017-06-23)
DX: K25.4 Chronic or unspecified gastric ulcer with hemorrhage (principal); E11.9 Type 2 diabetes mellitus without complications; G40.909 Epilepsy, unspecified, not intractable, without status epilepticus; E89.0 Postprocedural hypothyroidism; E78.5 Hyperlipidemia, unspecified; D50.9 Iron deficiency anemia, unspecified; H26.9 Unspecified cataract; K21.9 Gastro-esophageal reflux disease without esophagitis; E78.00 Pure hypercholesterolemia, unspecified; Z85.07 Personal history of malignant neoplasm of pancreas; Z90.410 Acquired total absence of pancreas; Z90.49 Acquired absence of other specified parts of digestive tract; Z90.81 Acquired absence of spleen; Z91.048 Other nonmedicinal substance allergy status; Z91.041 Radiographic dye allergy status; Z84.81 Family history of carrier of genetic disease; Z97.4 Presence of external hearing-aid; Z92.21 Personal history of antineoplastic chemotherapy; Z79.4 Long term (current) use of insulin
CPT/HCPCS: 36415; 71020; 71250; 74176; 80053; 82272; 84484; 85014; 85018; 85025; 85060; 85610; 85730; 86850; 86900; 86901; 86922; 87086; 87641; 93005; 99156; 99157; 99232; 99239; A9270-GY; J2250; J3010; P9040

== ENCOUNTER 2017-06-28 14:19 | Observation (INO) | payer MEDICARE ==
[2017-06-28] MEDS ORDERED: Pantoprazole IV* 40 MG IV ONE (15:11)
[2017-06-28] MEDS ORDERED: NS 0.9% 500 ML BAG* 500 ML IV SCH (16:00)
[2017-06-28 16:10] LABS: Albumin 3.2 g/dL (3.2-5.2); BUN/Creatinine Ratio 29.5 (8-20); Calcium 8.1 mg/dL (8.6-10.3); EGFR African American 92.8 (>60); EGFR Non-African American 72.2 (>60); Globulin 3.1 g/dL (2-4); Potassium 4.6 mmol/L (3.5-5.0); Total Bilirubin 0.3 mg/dL (0.2-1.0); Total Protein 6.3 g/dL (6.4-8.9)
[2017-06-28 16:21] LABS: Hematocrit 24 % (35-47); Hemoglobin 6.9 g/dl (12.0-16.0); Mean Corpuscular HGB Conc 29 g/dl (31-36); Mean Corpuscular Hemoglobin 21 pg (27-31); Mean Corpuscular Volume 70 fL (80-97); Mean Platelet Volume 11 um3 (7.4-10.4); Red Blood Count 3.35 10^6/ul (4.0-5.4); Red Cell Distribution Width 29 % (10.5-15); White Blood Count 20.1 10^3/ul (3.5-10.8)
[2017-06-28 16:24] LABS: Add Diff/Slide Review? Manual Diff Added; Comments Flag Yes
[2017-06-28 16:50] LABS: Eosinophils % 4 % (0-6); Neutrophil % 67 % (38-83)
[2017-06-28 16:52] LABS: Hypochromasia 2+; Microcytosis 1+; Polychromasia 2+; Target Cells 1+
[2017-06-28] MEDS ORDERED: [UNRECOGNIZED DRUG - OTHER] PO PRN (18:05)
[2017-06-28] MEDS ORDERED: Docusate CAP* 100 MG PO PRN (18:05)
[2017-06-28] MEDS ORDERED: Acetaminophen TAB* 325 MG PO PRN ×2 (18:05→18:14)
[2017-06-28] MEDS ORDERED: traZODone TAB* 100 MG PO PRN (18:14)
--- NOTE | 2017-06-28 18:47 | ED ---
Zach Elaine Angela, scribed for Brigido Joe MD on 06/28/17 at 1514 . GI/ HPI - HPI Summary HPI Summary: Pt is a 76 y[facility] due to low Hgb, Hct, and RBC. Pt reports she has been experiencing SOB, weakness, and fatigue x5 days. Pt notes that she was seen 5 days ago for bloody stools and melena where had an endoscopy done, was admitted and was discharged 3 days ago for a GI bleed. She states improvement (almost fully resolved) bloody stools and melena. Pt denies palpitations, chest pain, abd pain, nausea, vomiting. She notes taking Protonix 40 mg BID. - History of Current Complaint Chief Complaint: EDGIBleed Time Seen by Provider: 06/28/17 14:56 Stated Complaint: ABNORMAL LAB WORK Hx Obtained From: Patient Timing: Lasting Days Pain Intensity: 0 Associated Signs and Symptoms: Positive: Weakness, Black Tarry Stool - now almost fully resolved, Bright Red Blood w/Stool - now almost fully resolved, Other: - Shortness of breath. Negative: Back Pain, Nausea, Vomiting, Diarrhea, Fever - Additional Pertinent History Primary Care Physician: [id number] - Allergy/Home Medications Allergies/Adverse Reactions: Allergies Allergy/AdvReac Type Severity Reaction Status Date / Time Adhesive Tape Allergy Rash Verified 06/28/17 14:24 Iodinated Diagnostic Agents Allergy Palpitation Verified 06/28/17 14:24 s contrast dye Allergy Intermediate Palpitation Uncoded 06/28/17 14:24 s Home Medications: Home Medications Calcium Carbonate-Mag Hydrox [Rolaids 550-110 mg] 1 chw PO BID PRN 06/28/17 [ History Confirmed 06/28/17] Cholecalciferol TAB* [Vitamin D TAB*] 2,000 units PO QPM 06/28/17 [History Confirmed 06/28/17] Docusate CAP* [Colace Cap*] 100 mg PO BID PRN 06/28/17 [History Confirmed ] Pantoprazole TAB (NF) [Protonix TAB (NF)] 40 mg PO BID 06/28/17 [History Confirmed 06/28/17] Polysaccharide Iron Complex [Ferrex 150] 150 mg PO BID 06/28/17 [History Confirmed 06/28/17] PMH/Surg Hx/FS Hx/Imm Hx Endocrine/Hematology History: Reports: Hx Diabetes - type 1, Hx Thyroid Disease , Hx Anemia - takes iron, Other Endocrine/Hematological Disorders - anemia Cardiovascular History: Reports: Hx Hypercholesterolemia, Other Cardiovascular Problems/Disorders - hx of tachycardia, ACS 03/27 AND HEART CATH, SVT, TACHYCARDIA Denies: Hx Hypertension, Hx Pacemaker/ICD Respiratory History: Denies: Hx Asthma, Hx Chronic Obstructive Pulmonary Disease (COPD) GI History: Reports: Hx Gall Bladder Disease, Hx Gastroesophageal Reflux Disease , Hx Gastrointestinal Bleed - 06/23/17 admission, Other GI Disorders - s/p whipple, hernia repair, splenectomy History: Reports: Other Problems/Disorders - bladder prolapse Musculoskeletal History: Denies: Hx Scoliosis Sensory History: Reports: Hx Cataracts - bilateral, Hx Contacts or Glasses, Hx Hearing Aid Opthamlomology History: Reports: Hx Cataracts - bilateral, Hx Contacts or Glasses Neurological History: Reports: Hx Seizures - when pt. was a child Denies: Hx Headaches, Other Neuro Impairments/Disorders Psychiatric History: Denies: Hx Panic Disorder - Cancer History Cancer Type, Location and Year: papillary thyroid with surgery 2006, pancreatic cancer w/ pancreas removed in 2014 Hx Chemotherapy: No Hx Radiation Therapy: No - Surgical History Surgery Procedure, Year, and Place: LT ROTATOR CUFF REPAIR,THYROIDECTOMY; hysterectomy 05/2013; incisional hernia 2013; splenectomy, whipple, pancrectomy, HEART CATH 03/2017 Hx Anesthesia Reactions: No Infectious Disease History: No Infectious Disease History: Denies: Traveled Outside the [place] in Last 30 Days - Family History Known Family History: Positive: None Negative: Cardiac Disease, Hypertension, Diabetes - Social History Alcohol Use: None Hx Substance Use: No Substance Use Type: Reports: None Hx Tobacco Use: No Smoking Status (MU): Never Smoked Tobacco Review of Systems Positive: Fatigue. Negative: Fever, Chills Negative: Palpitations Positive: Shortness Of Breath Negative: Abdominal Pain, Vomiting, Diarrhea, Nausea Positive: Weakness All Other Systems Reviewed And Are Negative: Yes Physical Exam - Summary Physical Exam Summary: VITAL SIGNS: Reviewed. GENERAL: Patient is a well-developed and nourished female who is lying comfortable in the stretcher. Patient is not in any acute respiratory distress. Pt is pale. HEAD AND FACE: No signs of trauma. No ecchymosis, hematomas or skull depressions. No sinus tenderness. EYES: PERRLA, EOMI x 2. EARS: Hearing grossly intact. Ear canals and tympanic membranes are within normal limits. MOUTH: Oropharynx within normal limits. NECK: Supple, trachea is midline, no adenopathy, no JVD, no carotid bruit, neck with full ROM. CHEST: Symmetric, no tenderness at palpation LUNGS: Clear to auscultation bilaterally. No wheezing or crackles. CVS: Regular rate and rhythm, S1 and S2 present, no murmurs or gallops appreciated. ABDOMEN: Soft, non-tender. No signs of distention. EXTREMITIES: FROM in all major joints, no edema, no cyanosis or clubbing. NEURO: Alert and oriented x 3. No acute neurological deficits. Speech is normal and follows commands. : Female transformation coach present for rectal exam. Normal sphincter tone, external hemorrhoids noted, no gross blood. SKIN: Dry and warm Triage Information Reviewed: Yes Vital Signs On Initial Exam: Initial Vitals Temp Pulse Resp BP Pulse Ox 98.7 F 79 16 112/63 98 06/28/17 14:24 06/28/17 14:24 06/28/17 14:24 06/28/17 14:24 06/28/17 14:24 Vital Signs Reviewed: Yes - [place] Coma Scale Coma Scale Total: 15 Diagnostics - Vital Signs Vital Signs Temp Pulse Resp BP Pulse Ox 06/28/17 14:36 98.7 F 74 18 109/60 96 06/28/17 14:24 98.7 F 79 16 112/63 98 - Laboratory Result Diagrams: 06/28/17 15:30 06/28/17 15:30 Lab Statement: Any lab studies that have been ordered have been reviewed, and results considered in the medical decision making process. - EKG 15:24 Cardiac Rate: NL - 70 bpm EKG Rhythm: Sinus Rhythm EKG Interpretation: ST depression on leads I, II, V5, V6. EKG Comparison: No Significant Change - This EKG is similar to EKG done in [facility] Course/Dx - Course Assessment/Plan: Pt is a 76 y/o female [facility] due to low Hgb, Hct, and RBC. Pt reports she has been experiencing SOB, weakness, and fatigue x5 days. Pt notes that she was seen 5 days ago for bloody stools and melena where had an endoscopy done, was admitted and was discharged 3 days ago for a GI bleed. She states improvement (almost fully resolved) bloody stools and melena. Pt denies palpitations, chest pain, abd pain, nausea, vomiting. She notes taking Protonix 40 mg BID. Test results show WBC of 20.1, H and H of 6.9/24, platelets of 336, sodium of 130, glucose of 243, stool occult blood positive for blood. At this time the pt was given IV fluids, 2 units of red blood cells. I discussed the case with Dr. Mao, who examined the pt. He agrees to admit the pt to medical services and he will do an endoscopy tomorrow. I discussed the case with Dr. Jeff (who actually admitted the pt last time), he has agree to admit the pt. At this time, the pt is hemodynamically stable, and alert and oriented x3. - Diagnoses Provider Diagnoses: GI bleed - Physician Notifications Discussed Care Of Patient With: Ronak Jeff Time Discussed With Above Provider: 17:25 Instructed by Provider To: Other - I discussed the pt with Dr. Jeff. He will admit the pt. Discharge - Discharge Plan Condition: Stable Disposition: ADMITTED TO [facility] Referrals: Mj Reveles MD [Primary Care Provider] - The documentation as recorded by the Zach ly Angela accurately reflects the service I personally performed and the decisions made by me, Brigido Joe MD.
[2017-06-28] MEDS ORDERED: D5NS 0.9% 1000 ML BAG* 1,000 ML IV SCH (19:00)
[2017-06-28] MEDS ORDERED: Pantoprazole IV* 40 MG IV SCH (20:00)
[2017-06-28] MEDS ORDERED: Atorvastatin* 10 MG TAB PO SCH (21:00)
[2017-06-28] MEDS ORDERED: Omeprazole CAP* 20 MG PO SCH (21:00)
[2017-06-28] MEDS: Insulin LISPRO* 1 UNITS UNIT SUBCUT SCH (22:18)
--- NOTE | 2017-06-28 23:03 | HP ---
HISTORY AND PHYSICAL: DATE OF ADMISSION: 06/28/17 REASON FOR ADMISSION: Recurrent GI bleed. HISTORY OF PRESENT ILLNESS: This is a 76-year-old female who is followed for pancreatic cancer, fin ished adjuvant chemotherapy earlier this summer. She had a followup 7 days ago done at [facility] where she had an EGD and biopsy of gastric erosion. She presented the next day wi th acute GI bleed. She had an endoscopy last Saturday that showed a bleeding vessel at the site of th e prior biopsy. She had that vessel clipped 3 times and stabilized. She was in the hospital up [facility] 3 days ago when she was discharged home, with stable hemoglobin. She had generally felt well sinc e going home. She was still having symptoms of anemia, shortness of breath with exertion, cough. S he had occasional chest pain. She was very fatigued. The bowels had been improving, going from blue to black to maroon and brown. She was not lightheaded, no palpitations, no diarrhea. She went for routine followup this morning at Dr. Reveles's office and had a repeat CBC. She was found to have a h emoglobin of 7.0, down from 8 on discharge on 06/25/17. She was told to come to the emergency room and a repeat hemoglobin was 6.9, platelets 336,000, white count elevated at 20.1 and has been elevat ed since her initial bleed. Her blood pressure is stable. She is not tachycardic. She feels reaso nably well. Other labs showed BUN of 23 and a creatinine of 0.78 which is approximately her baselin e. Sodium of 130, near her baseline as well and normal LFTs. She was seen by Dr. Mao [facility] the [facility] room and she will be admitted tonight with a repeat EGD tomorrow morning. PAST MEDICAL HISTORY: 1. Pancreatic cancer. Status post Whipple in [facility] [place] followed by ad juvant gemcitabine chemotherapy for 6 months. Tolerated chemotherapy reasonably well. The Whipple surgery included splenectomy and cholecystectomy. 2. Insulin-dependent type 2 diabetes. She prefers she has a regimen of Levemir and Humalog. 3. Paroxysmal SVT. 4. Hypothyroidism following Tramaine's thyroiditis. 5. Hyperlipidemia. 6. GERD. 7. Iron deficiency and repeat GI bleed. 8. 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 PAST SURGICAL HISTORY: Whipple surgery as noted above, included splenectomy. MEDICATIONS: 1. Sucralfate 10 mL q.6. 2. Ramipril 2.5 mg daily. 3. Poly Iron 150 a day. 4. Pantoprazole 40 b.i.d. 5. Pancreas 36,000 units with meals. 6. Multivitamin once a day. 7. Synthroid 175 mcg a day. 8. Levemir Insulin 7 units in the morning and 5 units at night. 9. NovoLog insulin 1-5 units depending on her blood sugar when she is eating. 10. Docusate 100 b.i.d. 11. Vitamin D 2000 a day. 12. Calcium supplement. 13. Lipitor 10 mg a day. 14. Atenolol 25 mg daily. 15. Ascorbic acid 500 mg a day. 16. Tylenol 650 q.4 p.r.n. ALLERGIES: ADHESIVE TAPE, IODINATED DIAGNOSTIC AGENTS. FAMILY HISTORY: Sister with Felicity-Danlos syndrome. SOCIAL HISTORY: Her is the primary support. He is with her in clinic today. No drinking, no smoking. REVIEW OF SYSTEMS: As defined above, otherwise 14-point review is negative. PHYSICAL EXAMINATION GENERAL: No distress. VITAL SIGNS: BP 145/81, pulse 77, sat 96%, respirations 14. HEENT: Mucosa moist. No lesions. NECK: No supraclavicular lymphadenopathy. LUNGS: Clear to auscultation bilaterally. HEART: Regular rate and rhythm. S1, S2. No murmurs, rubs or gallops. ABDOMEN: Nondistended. Good bowel sounds. Nontender. I do not feel her liver. She has a healed i ncision scar from the Whipple and some fibrosis on the abdominal wall. EXTREMITIES: She is warm to the touch. Good pulses x4. NEUROLOGIC: Alert and oriented x3. Grossly nonfocal. exam deferred. SKIN: No bruising or bleeding. LABORATORY DATA: As noted above. ASSESSMENT AND PLAN: A 76-year-old female with history of pancreatic cancer status post Whipple spl enectomy, who was admitted for recurrent GI bleed. 1. GI bleed: Case discussed with Dr. Mao and will have an EGD again tomorrow, possibly need to be re-clipped. It does not appear that she has a brink bleed and she can be admitted to the floor. We will place an 18-gauge peripheral IV and keep her on telemetry. She is receiving 2 units of pac ked red blood cells started in the emergency room and after that, we will hydrate her with D5 normal saline at 75 cc an hour. Check CBC again in the morning. 2. Hypertension. We will hold her blood pressure medicines at this time, restart at discharge. 3. Leukocytosis. Partly due to her prior splenectomy, we will follow. No evidence of infection. 4. Diabetes. She prefers to take her home insulin and she follows her own schedule. She will dose it routinely tonight and she will have a regular diet until midnight. Tomorrow morning she will ta ke one-half of her Levemir dose and we will follow. We will make sure her fluids have D5. 5. Hold DVT prophylaxis tonight. She tomorrow, we will start after her EGD. 6. We will continue her other home medications, but hold the sucralfate. 7. Pancreatic cancer. She is cancer free at this time. [id number]/[facility] #: [id number]
[2017-06-29] MEDS ORDERED: Levothyroxine TAB* 175 MCG TAB PO SCH (06:00)
[2017-06-29] MEDS: Insulin LISPRO* 1 UNITS UNIT SUBCUT SCH ×2 (07:09→09:09)
[2017-06-29] MEDS ORDERED: Pancrelipase (NF) 12,000 UNITS CAP.DR PO SCH (08:00)
[2017-06-29 08:37] LABS: Hematocrit 28 % (35-47); Hemoglobin 8.7 g/dl (12.0-16.0); Mean Corpuscular HGB Conc 31 g/dl (31-36); Mean Corpuscular Hemoglobin 23 pg (27-31); Mean Corpuscular Volume 73 fL (80-97); Mean Platelet Volume 11 um3 (7.4-10.4); Red Blood Count 3.83 10^6/ul (4.0-5.4); Red Cell Distribution Width 28 % (10.5-15); White Blood Count 17.6 10^3/ul (3.5-10.8)
[2017-06-29 08:38] LABS: Comments Flag Yes
[2017-06-29 08:52] LABS: BUN/Creatinine Ratio 23.2 (8-20); Calcium 8.5 mg/dL (8.6-10.3); EGFR Non-African American 83.2 (>60); Globulin 2.7 g/dL (2-4); Total Bilirubin 0.6 mg/dL (0.2-1.0); Total Protein 5.7 g/dL (6.4-8.9)
[2017-06-29] MEDS ORDERED: fentaNYL* 50 MCG/ML 2 ML VIAL (100 MCG VIAL) ONE ×2 (08:52→08:53)
[2017-06-29] MEDS ORDERED: Midazolam* 1 MG/ML 10 ML VIAL (10 MG) ONE ×2 (08:52→08:53)
[2017-06-29] MEDS ORDERED: INSULIN DETEMIR 7 UNIT SUBCUT SCH (09:00)
--- NOTE | 2017-06-29 11:27 | PRO ---
CC: Dr. Reveles; Dr. Jeff * DATE OF PROCEDURE: 06/29/17 - ROOM #445 PROCEDURE: Upper endoscopy. MEDICINES USED: Versed 5 mg IV, Fentanyl 25 mcg IV. NARRATIVE: This is a 76-year-old woman with a history of Whipple surgery for low- grade pancreatic cancer about a year ago followed by chemotherapy. She, about a week and a half ago, underwent an upper endoscopy for abdominal pain electively at another institution. Small erosions were seen, which were biopsied. The following day, she experienced GI bleeding and was admitted to our hospital about a week ago. She underwent emergent upper endoscopy at that time, which showed bleeding from a gastric ulcer, 3 clips were applied with good hemostasis. She was monitored for a couple of days, transfused and discharged. Since discharge, she has had some maroon stools and black stools. She was found by her warp knit operator to have drop in the hemoglobin to about 6. For that reason, she was readmitted last night. She was transfused 2 units, a repeat hemoglobin was 8 and she had one brown stool so far. For this reason and the concern of recurrent GI bleeding, upper endoscopy is being carried out. PROCEDURE IN DETAIL: After the procedure was discussed with the patient and her , risks and benefits were outlined, written consent was obtained. The patient was placed in the left lateral decubitus position and conscious sedation was administered. A video diagnostic gastroscope was inserted orally and passed easily into the esophagus. The esophagus, gastric remnant, and jejunum were well visualized. The patient tolerated the procedure well and there were no immediate complications. FINDINGS: The esophagus was normal. There was no evidence of erosive change. The stomach was entered. There was some bile in the stomach, but certainly no blood or coffee ground material. Suction and irrigation was carried out and after doing that, 3 Endoclips were seen along a small ulcer. The area was extensively examined, there was no evidence of hemorrhage, visible vessel. The clips seemed very secure. The remainder of the stomach was unremarkable, the gastrojejunal anastomosis was normal without any ulceration and was widely patent. The jejunum was also inspected for about 20 cm and was normal without any lesion. CONCLUSION: Healing gastric ulcer with well-placed Endoclips and no evidence of hemorrhage or visible vessel. RECOMMENDATIONS: No therapeutics need to be done at this time. It looks like it is healing well and may be that the patient needed just a few more units of packed red blood cells. At this point, I think she could be discharged, kept on a PPI and iron supplementation can begin. Thank you very much, Dr. Jeff, for referring this kind woman to me. [id number]/[facility] #: [id number] MTDD
[2017-06-29 11:55] VITALS: BP 137/80
--- NOTE | 2017-06-29 12:19 | PN ---
Progress Note - Progress Note Date of Service: 06/29/17 SOAP: Subjective: []Feels fine. Had BM today with brown stool. Not dizzy. Wants to go home. Active Medications Generic Name Dose Route Start Last Admin Trade Name Freq PRN Reason Stop Dose Admin Acetaminophen 650 mg 06/28/17 18:14 Tylenol Tab* PO Q4H PRN PAIN Ascorbic Acid 500 mg 06/29/17 18:00 Vitamin C Tab* PO QPM CRYSTAL Atorvastatin Calcium 10 mg 06/28/17 21:00 06/28/17 22:14 Lipitor* PO 10 mg BEDTIME CRYSTAL Administration Cholecalciferol 2,000 units 06/29/17 18:00 Vitamin D Tab* PO QPM CRYSTAL Docusate Sodium 100 mg 06/28/17 18:05 Colace Cap* PO BID PRN CONSTIPATION Dextrose/Sodium Chloride 1,000 mls @ 75 mls/hr 06/28/17 19:00 06/28/17 20:14 D5ns 0.9% 1000 Ml Bag* IV 75 mls/hr PER RATE CRYSTAL Administration Insulin Human Lispro 1 - 5 units 06/28/17 22:00 06/29/17 09:09 Humalog* SUBCUT Not Given FIVE TIMES DAILY [facility] Levothyroxine Sodium 175 mcg 06/29/17 06:00 06/29/17 06:01 Synthroid Tab* PO 175 mcg 0600 CRYSTAL Administration Multivitamins/Minerals 1 tab 06/29/17 18:00 Theragran/Minerals Tab* PO QPM [facility] Non-Formulary Medication 1 chw 06/28/17 18:05 Calcium Carbonate-Mag Hydrox [Rolaids 550-110 Mg] PO BID PRN INDIGESTION Non-Formulary Medication 5 unit 06/29/17 18:00 Insulin Detemir [Levemir Flextouch] SUBCUT QPM [facility] Non-Formulary Medication 7 unit 06/29/17 09:00 06/29/17 09:10 Insulin Detemir [Levemir Flextouch] SUBCUT Not Given QAM [facility] Pancrelipase 36,000 units 06/29/17 08:00 06/29/17 09:10 Creon (Nf) PO Not Given TID WITH MEALS [facility] Pantoprazole Sodium 40 mg 06/29/17 15:00 Protonix Iv* IV 1500 [facility] Trazodone HCl 100 mg 06/28/17 18:14 Desyrel Tab* PO BEDTIME PRN SLEEP Objective: [] Vital Signs Temp Pulse Resp BP Pulse Ox 98.4 F 70 18 137/80 95 06/29/17 11:28 06/29/17 11:28 06/29/17 11:28 06/29/17 11:28 06/29/17 11:28 HEENT pale, no distress CTA [id number] +BS NT ND Ext good pulses, warm Hgb 8.7 EGD no bleeding Assessment: []No acute GIB and change in Hgb [facility] fluid equilibration. Plan: []1. Discharge home 2. Take iron pills 3. Keep prior follow up
[2017-06-29] MEDS ORDERED: Pantoprazole IV* 40 MG IV SCH (15:00)
[2017-06-29] MEDS ORDERED: INSULIN DETEMIR 5 UNIT SUBCUT SCH (18:00)
[2017-06-29] MEDS ORDERED: Cholecalciferol TAB* 1000 UNITS PO SCH (18:00)
[2017-06-29] MEDS ORDERED: Multivitamins/Minerals TAB PO SCH (18:00)
[2017-06-29] MEDS ORDERED: Ascorbic Acid TAB* 500 MG PO SCH (18:00)
--- NOTE | 2017-07-20 08:35 | DS ---
CC: Mj Reveles MD DISCHARGE SUMMARY: DATE OF ADMISSION: 06/28/17. DATE OF DISCHARGE: 06/29/17. DISCHARGE DIAGNOSES: 1. History of gastrointestinal bleed. 2. Anemia. 3. Mild shortness of breath. 4. History of pancreatic cancer, status post adjuvant chemotherapy. HOSPITAL COURSE: Please history of present illness for details of presentation on 06/27. She had b een discharged on the with acute GI bleed. The bleed happened from rupture of a vesicle during a routine EGD at [facility]. She had cauterization during that admissi on and received 2 units of packed red blood cells. On discharge, on 06/25, her hemoglobin was 8.0. She had follow up with Dr. Jose Alberto Reveles on 06/28, was found to have hemoglobin of 7.0. She went t o the emergency room with repeat CBC showing hemoglobin 6.9. She was admitted, given 2 units of pac ked red blood cells and repeat EGD done on the following morning. There was no active bleeding. Th e fact that further drop in hemoglobin was re-calibration after initial GI bleed. She continued to have some dark stools, but no diarrhea and the color of the stool had been clearing. She is going to be discharged home on her oral iron therapy with follow up with myself and Dr. Reveles over the next t wo weeks. DISCHARGE MEDICATIONS: 1. Levothyroxine 175 mcg p.o. daily. 2. Lipitor 10 mg daily. 3. Atenolol 25 mg every other morning. 4. Pancrelipase 36,000 units 3 times a day before meals. 5. Polysaccharide iron 150 mg a day. 6. Ramipril 2.5 mg daily. 7. Insulin. 8. Levemir 7 units every morning. 9. Insulin NovoLog 1 to 5 units subcu per sliding scale. 10. Vitamin C 500 daily. 11. Carafate suspension 10 q. 6 hours p.r.n. 12. Acetaminophen 650 mg q. 6 hours p.r.n. 13. Vitamin D 2000 units a day. 14. Colace 100 mg daily. 15. Rolaids one twice a day as needed. 16. Pantoprazole 40 mg twice daily. No studies pending on discharge. [id number]/[facility] #: [id number]
== END 2017-06-29 13:00 | disposition home or self-care (01) ==
LOC: ED 14:19 → INTOOBSV 18:10 → MEDTELE 18:10
PROVIDERS: ADMIT Internal Medicine Hematology & Oncology; ATTEND Internal Medicine Hematology & Oncology
DX: K25.4 Chronic or unspecified gastric ulcer with hemorrhage (principal); D50.0 Iron deficiency anemia secondary to blood loss (chronic); C25.9 Malignant neoplasm of pancreas, unspecified; I10 Essential (primary) hypertension; D72.829 Elevated white blood cell count, unspecified; E11.9 Type 2 diabetes mellitus without complications; Z79.4 Long term (current) use of insulin; K25.0 Acute gastric ulcer with hemorrhage; Z79.899 Other long term (current) drug therapy
CPT/HCPCS: 36415; 36430; 80053; 82270; 85014; 85018; 85025; 85027; 85610; 85730; 86850; 86900; 86901; 86922; 93005; 96365; 99156; 99217; 99220; 99284; A9270-GY; G0378; J2250; J3010; P9040

== ENCOUNTER 2018-01-30 13:09 | Emergency (ER) | payer MEDICARE ==
[2018-01-30 15:27] LABS: EGFR Non-African American 77.7 (>60)
[2018-01-30] MEDS ORDERED: LORazepam INJ* 2 MG/ML 1 ML VIAL IV ONE (15:32)
[2018-01-30 16:03] LABS: ABS Basophils 0.3 10^3/ul (0-0.2); ABS Eosinophils 0.6 10^3/ul (0-0.6); ABS Lymphocytes 3.1 10^3/ul (1.0-4.8); ABS Neutrophils 7.1 10^3/ul (1.5-7.7); Hematocrit 49 % (35-47); Hemoglobin 14.9 g/dl (12.0-16.0); Lymphocyte % 25.7 % (25-47); Mean Corpuscular HGB Conc 31 g/dl (31-36); Mean Corpuscular Hemoglobin 23 pg (27-31); Mean Corpuscular Volume 73 fL (80-97); Platelet Count 343 10^3/ul (150-450); Red Blood Count 6.62 10^6/ul (4.0-5.4); Red Cell Distribution Width 22 % (10.5-15); White Blood Count 12.1 10^3/ul (3.5-10.8)
[2018-01-30 16:05] LABS: Monocytes % 8 % (0-7)
[2018-01-30] MEDS ORDERED: Gadobenate* (CONTRAST) 529 MG/ML 10 ML SDV IV ONE (16:08)
--- NOTE | 2018-01-30 17:11 | RAD ---
HISTORY: Confusion and headache COMPARISONS: None TECHNIQUE: The following sequences were obtained of the neck after localizing images: Stacked axial 2-D [id number] MR angiography of the neck; 3-D axial [id number] MR angiography of the carotid bifurcations. Additionally 3-D multiphase contrast-enhanced MR angiography of the neck was performed after the administration of a gadolinium-based intravenous contrast agent. . Multiple 3-D maximum intensity projection reconstructions are submitted for review. FINDINGS: The study is limited by patient motion artifact. AORTA: The aortic arch is not well visualized secondary to technique and motion artifact. There is no obvious ostial or proximal stenosis of the cephalic great vessels. RIGHT VERTEBRAL ARTERY: The right vertebral artery is patent and without stenosis. There is in plane flow saturation artifact of the horizontal portion of the right vertebral artery. LEFT VERTEBRAL ARTERY: The left vertebral artery is patent, without stenosis. There is in plane flow saturation artifact of the horizontal portion of the left vertebral artery. DOMINANCE: The vertebral arteries are codominant. RIGHT COMMON CAROTID ARTERY: The right common carotid artery is patent. RIGHT INTERNAL CAROTID ARTERY: There is no right internal carotid artery stenosis by NASCET criteria. LEFT COMMON CAROTID ARTERY: The left common carotid artery is patent. LEFT INTERNAL CAROTID ARTERY: There is no left internal carotid artery stenosis by NASCET criteria. ADDITIONAL FINDINGS: The visualized intracranial circulation is unremarkable. IMPRESSION: NO INTERNAL CAROTID ARTERY STENOSIS BY NASCET CRITERIA. CPT II Codes: 3100F
--- NOTE | 2018-01-30 17:24 | RAD ---
HISTORY: Confusion and headache COMPARISONS: Head CT dated January 30, 2018 TECHNIQUE: 3-D axial [id number] MR angiography was performed of the head to include the [place] of [place]. Multiple 3-D maximum intensity projection reconstructions are also submitted for review. FINDINGS: RIGHT VERTEBRAL ARTERY: The distal right vertebral artery is unremarkable, without stenosis. LEFT VERTEBRAL ARTERY: The distal left vertebral artery is unremarkable, without stenosis. DOMINANCE: The vertebral arteries are codominant. DISTAL RIGHT CERVICAL INTERNAL CAROTID ARTERY: The distal right cervical internal carotid artery is unremarkable. DISTAL LEFT CERVICAL INTERNAL CAROTID ARTERY: The distal left cervical internal carotid artery is unremarkable. INTRACRANIAL CIRCULATION: There is no aneurysm, vascular malformation, occlusion, or stenosis of the visualized intracranial circulation. The tip of the basilar artery is mildly dysplastic without kristel aneurysmal dilatation.. The anterior communicating artery complex is clear. The posterior communicating arteries are diminutive if present. OTHER FINDINGS: None IMPRESSION: NO ANEURYSM, VASCULAR MALFORMATION, OCCLUSION, OR STENOSIS OF THE VISUALIZED INTRACRANIAL CIRCULATION.
[2018-01-30 18:48] VITALS: BP 163/80
--- NOTE | 2018-01-30 20:06 | ED ---
Maddi Elaine Thomas, scribed for Zach Alford MD on 01/30/18 at 1434 . Headache - HPI Summary HPI Summary: The patient is a 77 year old who four days ago had episodes of forgetting things. I didnt know where the door was when we were walking out of the store. I didnt know which car was ours. The patient has also been dealing with an intermittent mild headache for the last four days. The patient followed up at her PMD, who ordered a CT Brain obtained today that showed PROMINENCE OF THE TIP OF THE BASILAR ARTERY POSSIBLY REPRESENTING AN ANEURYSM VERSUS ECTASIA. Her PMD referred her to [facility] ED. - History Of Current Complaint Chief Complaint: EDHeadache Stated Complaint: HEADACHES Time Seen by Provider: 01/30/18 14:08 Hx Obtained From: Patient Onset/Duration: Started days ago - 4, Resolved Currently Pain Is: Current Pain Scale(0-10)= - 2 Timing: Intermittent, Lasting: Aggravating Factor: Nothing Allevating Factors: Nothing Associated Signs And Symptoms: Other (Noted In Comments) - Episodes of confrusion, headache - Allergies/Home Medications Allergies/Adverse Reactions: Allergies Allergy/AdvReac Type Severity Reaction Status Date / Time Adhesive Tape Allergy Rash Verified 10/28/17 16:38 MS Iodinated Diagnostic Allergy Palpitation Verified 10/28/17 16:38 Agents s [Iodinated Diagnostic Agents] contrast dye Allergy Intermediate Palpitation Uncoded 10/28/17 16:38 s PMH/Surg Hx/FS Hx/Imm Hx Endocrine/Hematology History: Reports: Hx Blood Transfusions - this admission, Hx Diabetes - type 1, Hx Thyroid Disease, Hx Anemia - takes iron, Other Endocrine/Hematological Disorders - anemia Cardiovascular History: Reports: Hx Hypercholesterolemia, Other Cardiovascular Problems/Disorders - hx of tachycardia, ACS 03/27 AND HEART CATH, SVT, TACHYCARDIA Denies: Hx Hypertension, Hx Pacemaker/ICD Respiratory History: Denies: Hx Asthma, Hx Chronic Obstructive Pulmonary Disease (COPD) GI History: Reports: Hx Gall Bladder Disease, Hx Gastroesophageal Reflux Disease , Hx Gastrointestinal Bleed - 06/23/17 admission, Other GI Disorders - s/p whipple, hernia repair, splenectomy History: Reports: Other Problems/Disorders - bladder prolapse Denies: Hx Renal Disease Musculoskeletal History: Denies: Hx Scoliosis Sensory History: Reports: Hx Cataracts - bilateral, Hx Contacts or Glasses, Hx Hearing Aid Opthamlomology History: Reports: Hx Cataracts - bilateral, Hx Contacts or Glasses Neurological History: Reports: Hx Seizures - when pt. was a child Denies: Hx Headaches, Other Neuro Impairments/Disorders Psychiatric History: Denies: Hx Panic Disorder - Cancer History Cancer Type, Location and Year: papillary thyroid with surgery 2006, pancreatic cancer w/ pancreas removed in 2014 Hx Chemotherapy: No Hx Radiation Therapy: No - Surgical History Surgery Procedure, Year, and Place: LT ROTATOR CUFF REPAIR,THYROIDECTOMY; hysterectomy 05/2013; incisional hernia 2013; splenectomy, whipple, pancrectomy, HEART CATH 03/2017 Hx Anesthesia Reactions: No Infectious Disease History: No Infectious Disease History: Denies: Traveled Outside the [place] in Last 30 Days - Family History Known Family History: Negative: Cardiac Disease, Hypertension, Diabetes - Social History Alcohol Use: None Hx Substance Use: No Substance Use Type: Reports: None Hx Tobacco Use: No Smoking Status (MU): Never Smoked Tobacco Review of Systems Negative: Fever Neurological: Other - Confusion Positive: Headache All Other Systems Reviewed And Are Negative: Yes Physical Exam - Summary Physical Exam Summary: Appearance: The patient is well-nourished in no acute distress and in no acute pain. Skin: The skin is warm and dry and skin color reflects adequate perfusion. HEENT: The head is normocephalic and atraumatic. The pupils are equal and reactive. The conjunctivae are clear and without drainage. Nares are patent and without drainage. Mouth reveals moist mucous membranes and the throat is without erythema and exudate. The external ears are intact. The ear canals are patent and without drainage. The tympanic membranes are intact. Neck: the neck is supple with full range of motion and non-tender. There are no carotid bruits. There is no neck vein distension. Respiratory: Chest is non-tender. Lungs are clear to auscultation and breath sounds are symmetrical and equal. Cardiovascular: Heart is regular rate and rhythm. There is no murmur or rub auscultated. There is no peripheral edema and pulses are symmetrical and equal. Abdomen: The abdomen is soft and non-tender. There are normal bowel sounds heard in all four quadrants and there is no organomegaly palpated. Musculoskeletal: There is no back tenderness noted. Extremities are non-tender with full range of motion. There is good capillary refill. There is no peripheral edema or calf tenderness elicited. Neurological: Patient is alert and oriented to person, place and time. The patient has symmetrical motor strength in all four extremities. Cranial nerves are grossly intact. Deep tendon reflexes are symmetrical and equal in all four extremities. Psychiatric: The patient has an appropriate affect and does not exhibit any anxiety or depression. Triage Information Reviewed: Yes Vital Signs On Initial Exam: Initial Vitals Temp Pulse Resp BP Pulse Ox 98.1 F 53 18 179/89 97 01/30/18 13:13 01/30/18 13:13 01/30/18 13:13 01/30/18 13:13 01/30/18 13:13 Vital Signs Reviewed: Yes Diagnostics - Vital Signs Vital Signs Temp Pulse Resp BP Pulse Ox 01/30/18 13:37 55 12 98 01/30/18 13:36 169/95 01/30/18 13:13 98.1 F 53 18 179/89 97 - Laboratory Lab Results: Lab Results 01/30/18 01/30/18 01/30/18 Range/Units 15:03 15:03 15:03 WBC 12.1 H (3.5-10.8) 10^3/ul RBC 6.62 H (4.0-5.4) 10^6/ul Hgb 14.9 (12.0-16.0) g/dl Hct 49 H (35-47) % MCV 73 L (80-97) fL MCH 23 L (27-31) pg MCHC 31 (31-36) g/dl RDW 22 H (10.5-15) % Plt Count 343 (150-450) 10^3/ul MPV 10.0 (7.4-10.4) um3 Neut % (Auto) 58.5 (38-83) % Lymph % (Auto) 25.7 (25-47) % [place] % (Auto) 8.0 H (0-7) % Eos % (Auto) 5.0 (0-6) % Baso % (Auto) 2.8 H (0-2) % Absolute Neuts (auto) 7.1 (1.5-7.7) 10^3/ul Absolute Lymphs (auto) 3.1 (1.0-4.8) 10^3/ul Absolute Monos (auto) 1.0 H (0-0.8) 10^3/ul Absolute Eos (auto) 0.6 (0-0.6) 10^3/ul Absolute Basos (auto) 0.3 H (0-0.2) 10^3/ul Immature Gran % 1 (0-9) % Neutrophils % 58 (38-83) % Band Neutrophils % 1 (0-8) % Lymphocytes % 28 (25-47) % Monocytes % 8 H (0-7) % Eosinophils % 4 (0-6) % Basophils % 1 (0-2) % Abs Neuts (Manual) 7.0 (1.5-7.7) 10^3/ul Abs Lymphs (Manual) 3.4 (1.0-4.8) 10^3/ul Abs Monocytes (Manual) 1.0 H (0-0.8) 10^3/ul Absolute Eos (Manual) 0.5 (0-0.6) 10^3/ul Abs Basophils (Manual) 0.1 (0-0.2) 10^3/ul Nucleated RBCs/100 WBC 0 (0-0) Large Platelets Present Normal RBC Morphology Not Reportable Anisocytosis 2+ Microcytosis 2+ Target Cells 2+ INR (Anticoag Therapy) 1.00 (0.77-1.02) Sodium 136 (133-145) mmol/L Potassium 3.9 (3.5-5.0) mmol/L Chloride 99 L (101-111) mmol/L Carbon Dioxide 32 (22-32) mmol/L Anion Gap 5 (2-11) mmol/L BUN 20 (6-24) mg/dL Creatinine 0.73 (0.51-0.95) mg/dL Est GFR ( Amer) 100.0 (>60) Est GFR (Non-Af Amer) 77.7 (>60) BUN/Creatinine Ratio 27.4 H (8-20) Glucose 115 H (70-100) mg/dL Calcium 9.3 (8.6-10.3) mg/dL Total Bilirubin 0.50 (0.2-1.0) mg/dL AST 34 (13-39) U/L ALT 23 (7-52) U/L Alkaline Phosphatase 93 (34-104) U/L C-Reactive Protein < 1.00 (< 5.00) mg/L Total Protein 6.7 (6.4-8.9) g/dL Albumin 3.6 (3.2-5.2) g/dL Globulin 3.1 (2-4) g/dL Albumin/Globulin Ratio 1.2 (1-3) Result Diagrams: 01/30/18 15:03 01/30/18 15:03 Lab Statement: Any lab studies that have been ordered have been reviewed, and results considered in the medical decision making process. - Additional Comments Diagnostic Additional Comments: MRA HEAD W/O Interpreted by radiologist. IMPRESSION: NO ANEURYSM, VASCULAR MALFORMATION, OCCLUSION, OR STENOSIS OF THE VISUALIZED INTRACRANIAL CIRCULATION. Dr. Alford has reviewed this report. MRA NECK W/WO Interpreted by radiologist. IMPRESSION: NO INTERNAL CAROTID ARTERY STENOSIS BY NASCET CRITERIA. Dr. Alford has reviewed this report. Headache Course/Dx - Course Course Of Treatment: Ms. Jung presented from CT after a CT of her brain showed a possible aneurysm. She had the CT for some intermittent symptoms over the last few days including a global and occipital MOONEY. She didn't have a MOONEY when I saw her or any other symptoms. Her PE was nonfocal. She was afebrile with stable vitals. She had had an untoward reaction to CTA dye in the past and therefore, an MRA was obtained after consultation with Dr. Boateng. It was read as WNL there was a slight dilatation but no aneuysm of the distal tip of the basilar artery. Dr. Boateng recommended that she F/U with Dr. Reveles tomorrow and that he (Dr. Boateng) would be available for consult with Dr. Reveles. - Diagnoses Provider Diagnoses: Headache - Physician Notifications Discussed Care Of Patient With: Telly Boateng Time Discussed With Above Provider: 15:56 Instructed by Provider To: Other - Dr. Boateng, neurology, recommends MRA Head and MRA neck. Discharge - Sign-Out/Discharge Documenting (check all that apply): Discharge - Discharge Plan Condition: Stable Disposition: HOME Patient Education Materials: Acute Headache (ED) Referrals: Mj Reveles MD [Primary Care Provider] - - Billing Disposition and Condition Condition: STABLE Disposition: HOME The documentation as recorded by the Maddi ly Thomas accurately reflects the service I personally performed and the decisions made by me, Zach Alford MD.
== END 2018-01-30 18:47 | disposition home or self-care (01) ==
LOC: ED 13:09
DX: R51 Headache (principal); R41.0 Disorientation, unspecified
CPT/HCPCS: 36415; 70544; 70549; 80053; 85025; 85610; 86140; 96374; 96375; 99283; A9577; J2060

== ENCOUNTER 2018-04-06 08:47 | Emergency (ER) | payer MEDICARE ==
--- OUTSIDE RECORDS SUMMARY | 2018-04-06 08:57 | XMS REPORT ---
:1940 External Reference #:[id number] Author Organization [facility] Address [address] [place] [address] Phone [phone] Care Team Providers Name Role Phone Svitlana Sotomayor Care Team Information Nurses Educator Unavailable Jose Alberto Reveles M.D. Primary Care Physician Unavailable Payers Type Date Identification Numbers Payment Provider Subscriber Medicare Primary Policy Number: [id number] Medicare-[employer] Cordeliajuan david Kee Fabiana SRVS PayID: [id number] [address] [place] [address] Medigap Part B Policy Number: [id number] [employer] Cordeliajuan david Kee Fabiana PayID: [id number] [address] [place] [address] Problems Date Description Provider Status Onset: 08/01/2012 Sore throat symptom Gal Girard MD Active Family History Date Family Member(s) Problem(s) Comments General Cancer General Hearing Loss General Heart Disease General Thyroid Disease Mother Hearing Loss Social History Type Date Description Comments Occupation Retired Cigarette Use Former Cigarette Smoker 1-5 Pt states she smoked when she Cigarettes Daily was in early twenties for a summer during college. Smoked 1-5 ciggs daily and quit after college. Cigars Never Smoked Cigars Pipe Never Smoked A Pipe Smokeless Tobacco Never Used Smokeless Tobacco ETOH Use Denies alcohol use Smoking Patient is a former smoker Allergies, Adverse Reactions, Alerts Date Description Reaction Status Severity Comments 07/30/2012 NKDA active Medications Medication Date Status Form Strength Qnty SIG Indications Ordering Provider Fluticasone 03/12/ Active Suspension 50mcg/Act 16gm 2 sprays Gal Propionate 2017 each nithin Villa MD befroe bed Atenolol 00/00/ Active Tablets 25mg Brand, 0000 Herbert Atorvastatin 00/00/ Active Tablets 10mg Take 1 Unknown Calcium 0000 Tablet By Mouth Every Day Levothyroxine 0000/ Active Tablets 175mcg 1 every day Brace Van Sodium 0000 Houten AuD, Svitlana Amoxicillin/Cla 00/ Active Tablets 875-125mg Take 1 Unknown vulanate 0000 Tablet By Potassium Mouth Twice A Day For 10 Days Valium 03/12/ Hx Tablets 5mg 2tabs 1 tablet by Gal 2017 - mouth 60 Henry Girard, 04/03/ min prior 2017 to mri and then 5 min prior to mri if anxiety persists Nasonex 07/30/ Hx Suspension 50mcg/Act 1mont 2 sprays Gal 2011 - h both Henry Girard, 04/19/ nostrils 2015 once a day Dexilant /00/ Hx Unknown 2015 Levoxyl 00/ Hx Unknown 2015 Atenolol 00/ Hx Unknown 2015 Aspirin 325 MG 00/ Hx Unknown - 2015 Novolog Penfill 00/ Hx Solution 100Unit/M Unknown 0000 - Cartridge L 2016 Eplerenone / Hx Tablets 25mg Unknown 2016 Levothyroxine 00/ Hx Tablets 137mcg Unknown Sodium 2016 Creon / Hx Caps [id number] 4 Cap(S) Unknown 0000 - Part Orally 3 03/12/ Times A Day 2016 (With Meals) Take 1 Cap With Snacks Ibuprofen /00/ Hx Tablets 600mg Unknown 2016 Omeprazole / Hx Capsules DR 20mg Unknown - 2016 Oxycodone HCL 00/ Hx Tablets 5mg Unknown 2016 Levemir 00/ Hx Solution 100Unit/M Unknown Flextouch 0000 - Pen-Inject L 2016 Glucagon / Hx Kit 1mg Unknown Emergency 2016 Ventolin HFA / Hx Aerosol 108(90Bas Take 2 puff Unknown 0000 - e) By 03/12/ mcg/Act Inhalation 2017 Route Four Times A Day as Needed Atorvastatin 00/00/ Hx Tablets 10mg Take 1/2 Unknown Calcium 0000 - Tablet By 04/03/ Mouth Once 2018 Daily Immunizations CPT Code Status Date Vaccine Lot # [id number] Given Unknown Pneumococcal Vaccine 2Yrs Or Older [address] Given Unknown Influenza Virus Vaccine, 3 Years Of Age And Above, Intramuscular Vital Signs Date Vital Result Comment 04/03/2018 Weight 130.00 lb Weight in kg's 58.968 Height 63.5 inches 5'3.50" Height in cm's 161.3 cm BMI (Body Mass Index) 22.7 kg/m2 03/12/2017 BP Systolic 142 mmHg BP Diastolic 78 mmHg Heart Rate 80 /min Weight 126.00 lb Weight in kg's 57.154 Height 63.5 inches 5'3.50" Height in cm's 161.3 cm BMI (Body Mass Index) 22.0 kg/m2 Results Test Date Test Result H/L Range Note Comp Metabolic Panel 04/05/2017 Sodium 130 mmol/L Low 133-145 Potassium 4.9 mmol/L 3.5-5.0 Chloride 95 mmol/L Low 101-111 Co2 Carbon Dioxide 30 mmol/L 22-32 Anion Gap 5 mmol/L 2-11 Glucose 292 mg/dL High 70-100 Blood Urea Nitrogen 26 mg/dL High 6-24 Creatinine 0.81 mg/dL 0.51-0.95 BUN/Creatinine Ratio 32.1 High 8-20 Calcium 9.2 mg/dL 8.6-10.3 Total Protein 6.8 g/dL 6.4-8.9 Albumin 3.6 g/dL 3.2-5.2 Globulin 3.2 g/dL 2-4 Albumin/Globulin Ratio 1.1 1-3 Total Bilirubin 0.40 mg/dL 0.2-1.0 Alkaline Phosphatase 111 U/L High 34-104 Alt 25 U/L 7-52 Ast 39 U/L 13-39 Egfr Non- 69.1 >60 Egfr 88.9 >60 1 CBC Auto Diff 04/05/2017 White Blood Count 13.4 10^3/uL High 3.5-10.8 Red Blood Count 5.47 10^6/uL High 4.0-5.4 Hemoglobin 10.4 g/dL Low 12.0-16.0 Hematocrit 35 % 35-47 Mean Corpuscular Volume 64 fL Low 80-97 2 Mean Corpuscular Hemoglobin 19 pg Low 27-31 Mean Corpuscular HGB Conc 30 g/dL Low 31-36 Red Cell Distribution Width 20 % High 10.5-15 Platelet Count 436 10^3/uL 150-450 Mean Platelet Volume 11 um3 High 7.4-10.4 Abs Neutrophils 9.0 10^3/uL High 1.5-7.7 Abs Lymphocytes 2.4 10^3/uL 1.0-4.8 Abs Monocytes 0.9 10^3/uL High 0-0.8 Abs Eosinophils 0.9 10^3/uL High 0-0.6 Abs Basophils 0.1 10^3/uL 0-0.2 Manual Differential 04/05/2017 Neutrophil % 67 % 38-83 Lymphocytes % 18 % Low 25-47 Monocytes % 7 % 0-13 Eosinophils % 7 % High 0-6 Basophil % 1 % 0-2 Microcytosis 2+ Hypochromasia 1+ Target Cells 2+ Schistocytes 1+ Laboratory test finding 04/05/2017 CA 19-9 43 U/mL <55 3 1 Because ethnic data is not always readily available, this report includes an eGFR for both -Americans and non- Americans. The National Kidney Disease Education Program (NKDEP) does not endorse the use of the MDRD equation for patients that are not between the ages of 18 and 70, are , have extremes of body size, muscle mass, or nutritional status, or are non- or non-. According to the National Kidney Foundation, irrespective of diagnosis, the stage of the disease is based on the level of kidney function: Stage Description GFR(mL/min/1.73 m(2)) 1 Kidney damage with normal or decreased GFR 90 2 Kidney damage with mild decrease in GFR 60-89 3 Moderate decrease in GFR 30-59 4 Severe decrease in GFR 15-29 5 Kidney failure <15 (or dialysis) 2 Consistent with previous results on 03/31/17. 3 ADDITIONAL INFORMATION The testing method is an immunoenzymatic assay manufactured by [employer] and performed on the [employer] 800. Values obtained with different assay methods or kits may be different and cannot be used interchangeably. Test results cannot be interpreted as absolute evidence for the presence or absence of malignant disease. Test Performed by: [address] [address] Procedures Date CPT Code Description Status 04/03/2018 64964 Fiberoptic Laryngoscopy Completed 03/12/2017 86562 Fiberoptic Laryngoscopy Completed 07/30/2012 46011 Fiberoptic Laryngoscopy Completed Encounters Type Date Location Provider CPT E/M Dx Office Visit 04/03/2018 9:45a Ravi,After 11/11/07 [place] [address] R49.0 R04.1 Office Visit 04/19/2016 3:00p Ravi,After 11/11/07 [place] [address] H90.42 Office Visit 07/30/2012 4:00p Ravi,After 11/11/07 [place] [address] 784.1 Plan of Care No Information Available
[2018-04-06 09:10] VITALS: BP 157/93
--- NOTE | 2018-04-06 09:57 | UC ---
Lower Extremity/Ankle HPI - HPI Summary HPI Summary: Patient presents with complaints of a red, swollen painful area on her left lower anterior leg. She states she notice this about 7-10 days ago. She denies any know injury, trauma or insect bites. She denies fever, chills, or red streaks up the leg. She states is hurt on palpation, improves at rest. She notes she has 2 days remaining of Augmentin 500 mg twice daily which was prescribed for an infection in her stomach. - History of Current Complaint Chief Complaint: UCLowerExtremity Stated Complaint: RED LUMP ON LEG Time Seen by Provider: 04/06/18 09:25 Hx Obtained From: Patient Onset/Duration: Gradual Onset, Lasting Days Severity Initially: Moderate Severity Currently: Moderate Pain Intensity: 3 Aggravating Factor(s): Other - palpation Alleviating Factor(s): Rest Able to Bear Weight: No - Risk Factors Gout Risk Factors: Negative DVT Risk Factors: Negative Septic Arthritis Risk Factor: Negative - Allergies/Home Medications Allergies/Adverse Reactions: Allergies Allergy/AdvReac Type Severity Reaction Status Date / Time Adhesive Tape Allergy Rash Verified 10/28/17 16:38 MS Iodinated Diagnostic Allergy Palpitation Verified 10/28/17 16:38 Agents s [Iodinated Diagnostic Agents] contrast dye Allergy Intermediate Palpitation Uncoded 10/28/17 16:38 s Home Medications: Home Medications Amoxicillin/Clavulanate TAB* [Augmentin TAB 875*] 875 mg PO BID 04/06/18 [ History Confirmed 04/06/18] Famotidine TAB* [Pepcid 20 MG TAB*] 40 mg PO BEDTIME 04/06/18 [History Confirmed 04/06/18] Insulin Aspart [Novolog] 100 unit SC TID 04/06/18 [History Confirmed 04/06/18] PMH/Surg Hx/FS Hx/Imm Hx Previously Healthy: Yes - Surgical History Surgical History: Yes Surgery Procedure, Year, and Place: LT ROTATOR CUFF REPAIR,THYROIDECTOMY; hysterectomy 05/2013; incisional hernia 2013; splenectomy, whipple, pancrectomy, HEART CATH 03/2017 - Family History Known Family History: Positive: None Negative: Cardiac Disease, Hypertension, Diabetes - Social History Occupation: Retired Lives: With Family Alcohol Use: None Substance Use Type: None Smoking Status (MU): Never Smoked Tobacco - Immunization History Most Recent Influenza Vaccination: 08/2016 Most Recent Tetanus Shot: W/in last 5 years Most Recent Pneumonia Vaccination: 08/2016 Review of Systems Constitutional: Negative Skin: Other - red painful area left lower leg. l Eyes: Negative ENT: Negative Respiratory: Negative Cardiovascular: Negative Gastrointestinal: Negative Genitourinary: Negative Motor: Negative Neurovascular: Negative Musculoskeletal: Negative Neurological: Negative Psychological: Negative Is Patient Immunocompromised?: No All Other Systems Reviewed And Are Negative: Yes Physical Exam Triage Information Reviewed: Yes Appearance: Well-Appearing Vital Signs: Initial Vital Signs Temp 97.1 F 04/06/18 09:04 Pulse 60 04/06/18 09:04 Resp 16 04/06/18 09:04 BP 157/93 04/06/18 09:04 Pulse Ox 95 04/06/18 09:04 Vital Signs Reviewed: Yes Eye Exam: Normal ENT Exam: Normal Neck exam: Normal Respiratory Exam: Normal Cardiovascular Exam: Normal Musculoskeletal Exam: Normal Skin Exam: Other - eft lower anterior germain inspection; erythmic, and slighly raised. warm and tender on palpation. no associated lympadgitis. Lower Extremity Course/Dx - Course Course Of Treatment: Patient presents with a know blood dyscrasia of throbocytosis, and reports her blood is prom to clotting.SHe presents with a nontraumatic red, swollin painful area of her left lower anterior germain, I do not have doppler available today and I recommend she go to the ER to have the study done and rule our blood clot in her leg. She stated she did not want to go to the ER today and understands that if she has a clot in her leg that it could result in permanent disability or . She has been on Augmentin for A GI infection which would have treated a cellutitis in her leg as well. Given the fact that it did not I recommend she go to the ER as stated above. - Differential Dx/Diagnosis Differential Diagnosis/HQI/PQRI: Cellulitis, Other - contusion suspect DVT Provider Diagnoses: cellulitis. contusion. suspect DVT Discharge - Sign-Out/Discharge Documenting (check all that apply): Discharge/Admit/Transfer - Discharge Plan Condition: Stable Disposition: HOME Patient Education Materials: Cellulitis (DC) Referrals: Mj Reveles MD [Primary Care Provider] - Additional Instructions: I have concerns Marie could have blood clot in her leg, and I recommend she go to the ER for venous doppler study today. - Billing Disposition and Condition Condition: STABLE Disposition: HOME
== END 2018-04-06 09:53 | disposition home or self-care (01) ==
LOC: UCEAST 08:47
DX: L03.116 Cellulitis of left lower limb (principal); S80.12XA Contusion of left lower leg, initial encounter; X58.XXXA Exposure to other specified factors, initial encounter; Y93.9 Activity, unspecified; Y92.9 Unspecified place or not applicable; Z91.041 Radiographic dye allergy status; Z91.048 Other nonmedicinal substance allergy status
CPT/HCPCS: 99212; G0463

== ENCOUNTER 2018-04-06 10:10 | Emergency (ER) | payer MEDICARE ==
--- NOTE | 2018-04-06 11:32 | RAD ---
INDICATION: Lump on right germain. Tender COMPARISON: None TECHNIQUE: Transverse and longitudinal scans of the anterior right lower leg were performed utilizing grayscale and color Doppler imaging. FINDINGS: There is a small, oval, well-circumscribed, avascular, solid-appearing subcutaneous nodule measuring 1.1 x 0.9 x 0.5 cm. There is adjacent edematous change. IMPRESSION: NONSPECIFIC SOLID APPEARING NODULE ANTERIOR LOWER EXTREMITY. SUGGEST CLINICAL EVALUATION MANAGEMENT
--- NOTE | 2018-04-06 11:49 | ED ---
Emir Elaine Stephanie, scribed for Brigido Joe MD on 04/06/18 at 1033 . Lower Extremity - HPI Summary HPI Summary: The pt is a 77 y/o F presenting to the ED with c/o a sore lump over the R lower ankle that began yesterday s/p sitting for multiple hours. Per , the lump progressively became swollen and red over 4 hours. Her pain is rated as a 3 in severity. Symptoms are aggravated by ambulation. 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 The pt reports she was recently on Augmentin for her stomach. - History of Current Complaint Chief Complaint: EDSoftTissueLowExtr Stated Complaint: RT LEG PAIN Time Seen by Provider: 04/06/18 10:21 Hx Obtained From: Patient Mechanism Of Injury: Unknown Onset of Pain: Days - 1 Onset/Duration: Days - 1 Severity Currently: Mild Pain Intensity: 3 Pain Scale Used: 0-10 Numeric Timing: Constant Location: Is Discrete @ - R medial ankle Associated Signs And Symptoms: Positive: Swelling Aggravating Factor(s): Ambulation Alleviating Factor(s): Rest Able to Bear Weight: Yes - Allergies/Home Medications Allergies/Adverse Reactions: Allergies Allergy/AdvReac Type Severity Reaction Status Date / Time Adhesive Tape Allergy Rash Verified 04/06/18 10:17 MS Iodinated Diagnostic Allergy Palpitation Verified 04/06/18 10:17 Agents s [Iodinated Diagnostic Agents] contrast dye Allergy Intermediate Palpitation Uncoded 04/06/18 10:17 s PMH/Surg Hx/FS Hx/Imm Hx Endocrine/Hematology History: Reports: Hx Blood Transfusions - this admission, Hx Diabetes - type 1, Hx Thyroid Disease, Hx Anemia - takes iron, Other Endocrine/Hematological Disorders - anemia Cardiovascular History: Reports: Hx Hypercholesterolemia, Other Cardiovascular Problems/Disorders - hx of tachycardia, ACS 03/27 AND HEART CATH, SVT, TACHYCARDIA Denies: Hx Hypertension, Hx Pacemaker/ICD Respiratory History: Denies: Hx Asthma, Hx Chronic Obstructive Pulmonary Disease (COPD) GI History: Reports: Hx Gall Bladder Disease, Hx Gastroesophageal Reflux Disease , Hx Gastrointestinal Bleed - 06/23/17 admission, Hx Ulcer, Other GI Disorders - s/p whipple, hernia repair, splenectomy History: Reports: Other Problems/Disorders - bladder prolapse Denies: Hx Renal Disease Musculoskeletal History: Denies: Hx Scoliosis Sensory History: Reports: Hx Cataracts - bilateral, Hx Contacts or Glasses, Hx Hearing Aid Opthamlomology History: Reports: Hx Cataracts - bilateral, Hx Contacts or Glasses Neurological History: Reports: Hx Seizures - when pt. was a child Denies: Hx Headaches, Other Neuro Impairments/Disorders Psychiatric History: Denies: Hx Panic Disorder - Cancer History Cancer Type, Location and Year: papillary thyroid with surgery 2006, pancreatic cancer w/ pancreas removed in 2014 Hx Chemotherapy: No Hx Radiation Therapy: No - Surgical History Surgery Procedure, Year, and Place: LT ROTATOR CUFF REPAIR,THYROIDECTOMY; hysterectomy 05/2013; incisional hernia 2013; splenectomy, whipple, pancrectomy, HEART CATH 03/2017 Hx Anesthesia Reactions: No Infectious Disease History: No Infectious Disease History: Denies: Traveled Outside the [place] in Last 30 Days - Family History Known Family History: Negative: Cardiac Disease, Hypertension, Diabetes - Social History Occupation: Retired Lives: With Family Alcohol Use: None Hx Substance Use: No Substance Use Type: Reports: None Hx Tobacco Use: No Smoking Status (MU): Never Smoked Tobacco Have You Smoked in the Last Year: No Review of Systems Negative: Fever Positive: Other - painful lump on R medial ankle Negative: Slurred Speech All Other Systems Reviewed And Are Negative: Yes Physical Exam - Summary Physical Exam Summary: VITAL SIGNS: Reviewed. GENERAL: Patient is a well-developed and nourished FEMALE who is lying comfortable in the stretcher. Patient is not in any acute respiratory distress. HEAD AND FACE: No signs of trauma. No ecchymosis, hematomas or skull depressions. No sinus tenderness. EYES: PERRLA, EOMI x 2, No injected conjunctiva, no nystagmus. EARS: Hearing grossly intact. Ear canals and tympanic membranes are within normal limits. MOUTH: Oropharynx within normal limits. NECK: Supple, trachea is midline, no adenopathy, no JVD, no carotid bruit, no c- spine tenderness, neck with full ROM. CHEST: Symmetric, no tenderness at palpation LUNGS: Clear to auscultation bilaterally. No wheezing or crackles. CVS: Regular rate and rhythm, S1 and S2 present, no murmurs or gallops appreciated. ABDOMEN: Soft, non-tender. No signs of distention. No rebound no guarding, and no masses palpated. Bowel sounds are normal. EXTREMITIES: FROM in all major joints, no cyanosis or clubbing, tender lump on medial aspect of distal lower extremity NEURO: Alert and oriented x 3. No acute neurological deficits. Speech is normal and follows commands. SKIN: Dry and warm Triage Information Reviewed: Yes Vital Signs On Initial Exam: Initial Vitals Temp Pulse Resp BP Pulse Ox 97.5 F 60 16 176/100 95 04/06/18 10:17 04/06/18 10:17 04/06/18 10:17 04/06/18 10:17 04/06/18 10:17 Vital Signs Reviewed: Yes Diagnostics - Vital Signs Vital Signs Temp Pulse Resp BP Pulse Ox 04/06/18 10:17 97.5 F 60 16 176/100 95 - Laboratory Lab Statement: Any lab studies that have been ordered have been reviewed, and results considered in the medical decision making process. - Additional Comments Diagnostic Additional Comments: US Soft Tissue Reveals: NONSPECIFIC SOLID APPEARING NODULE ANTERIOR LOWER EXTREMITY. SUGGEST CLINICAL EVALUATION MANAGEMENT. ED physician has reviewed this report. Re-Evaluation - Re-Evaluation First Eval Re-Evaluation Time: 11:37 Change: Unchanged - ED physician discussed plan of discharge with the pt and the pt understands and agrees. Lower Extremity Course/Dx - Course Assessment/Plan: This patient is a 77-year-old female who presents to the emergency room with a chief complaint of having pain in the right distal lower extremity at that she thinks she had an insect bite. Because she has blood dyscrasias Dr. Hooper requested to rule out DVT. I have a low suspicion for DVT because is a localized area of and swelling which I think is more cellulitis than DVT. However because of the blood dyscrasias I did order a DVT in the soft tissue ultrasound. Mahendra the recreation therapy aide looked at the distal veins and he reported that there is no DVT and therefore he requested to change the ultrasound order to a soft tissue ultrasound. Ultrasound right lower extremity impression: Nonspecific solid-appearing nodular anterior lower extremity. Therefore believe that the patient has cellulitis. The patient reports that from the symptoms from yesterday to today its much improved. However this is a slightly slight redness. Therefore the patient is already taking Augmentin, she will continue with antibiotics and follow with the primary care physician on Saturday. The patient was instructed to return to the emergency room if she develops any increasing pain, redness, difficulty ambulating or shortness of breath. The patient understands and agrees - Diagnoses Differential Diagnosis/HQI/PQRI: Positive: Bursitis, Cellulitis, Contusion, DVT , Gout, Infection, Sprain, Strain, Tendonitis Provider Diagnoses: Cellulitis, Swelling of lower extremity Discharge - Sign-Out/Discharge Documenting (check all that apply): Discharge/Admit/Transfer - Discharge - Discharge Plan Condition: Stable Disposition: HOME Patient Education Materials: Cellulitis (ED), Leg Edema (ED) Referrals: Mj Reveles MD [Primary Care Provider] - 3 Days Additional Instructions: Return to the ED for new or worsening symptoms. - Billing Disposition and Condition Condition: STABLE Disposition: HOME The documentation as recorded by the Emir ly Stephanie accurately reflects the service I personally performed and the decisions made by Heath robertson Walter, MD.
[2018-04-06 11:55] VITALS: BP 172/98
== END 2018-04-06 11:54 | disposition home or self-care (01) ==
LOC: ED 10:10
DX: L03.115 Cellulitis of right lower limb (principal); R22.41 Localized swelling, mass and lump, right lower limb; Z91.041 Radiographic dye allergy status; E11.9 Type 2 diabetes mellitus without complications; Z79.4 Long term (current) use of insulin; K21.9 Gastro-esophageal reflux disease without esophagitis; Z91.048 Other nonmedicinal substance allergy status; S80.12XA Contusion of left lower leg, initial encounter; X58.XXXA Exposure to other specified factors, initial encounter
CPT/HCPCS: 99282

== ENCOUNTER 2018-04-06 18:38 | Emergency (ER) | payer MEDICARE ==
[2018-04-06 19:04] VITALS: BP 175/92
[2018-04-06] MEDS ORDERED: Sulfamethox/Trimethoprim DS 800/160* TAB PO ONE ×2 (19:27→19:29)
--- NOTE | 2018-04-06 19:35 | UC ---
Irina Elaine Emily, scribed for Abhilash Thomas MD on 04/06/18 at 1920 . Skin Complaint HPI - HPI Summary HPI Summary: This patient is a 77 year old F presenting to urgent care accompanied by with a chief complaint of rash on left germain that began yesterday. The patient rates the pain 4/10 in severity. Symptoms aggravated by ambulation. Symptoms alleviated by nothing. Patient reports hot skin at the site of the rash. Medications reviewed. Allergies reviewed. - History of Current Complaint Chief Complaint: UCMedRefill Time Seen by Provider: 04/06/18 19:12 Stated Complaint: PERSCRIPTION Hx Obtained From: Patient ?: No Onset/Duration: Sudden Onset, Lasting Days, Still Present Skin Exposure Onset/Duration: Days Ago Timing: Constant Onset Severity: Moderate Current Severity: Moderate Pain Intensity: 4 Pain Scale Used: 0-10 Numeric Location: Discrete Aggravating Factor(s): Other - Ambulation Alleviating Factor(s): Nothing - Allergy/Home Medications Allergies/Adverse Reactions: Allergies Allergy/AdvReac Type Severity Reaction Status Date / Time Adhesive Tape Allergy Rash Verified 04/06/18 19:05 contrast dye Allergy Intermediate Palpitation Uncoded 04/06/18 19:05 s Review of Systems Constitutional: Other - Negative fever Skin: Rash, Other - Positive hot skin at the site of the rash All Other Systems Reviewed And Are Negative: Yes PMH/Surg Hx/FS Hx/Imm Hx Previously Healthy: No Endocrine History: Diabetes GI/ History: Gastroesophageal Reflux - Surgical History Surgical History: Yes Surgery Procedure, Year, and Place: LT ROTATOR CUFF REPAIR,THYROIDECTOMY; hysterectomy 05/2013; incisional hernia 2013; splenectomy, whipple, pancrectomy, HEART CATH 03/2017 - Family History Known Family History: Negative: Cardiac Disease, Hypertension, Diabetes - Social History Occupation: Retired Lives: With Family Alcohol Use: None Substance Use Type: None Smoking Status (MU): Never Smoked Tobacco Have You Smoked in the Last Year: No - Immunization History Most Recent Influenza Vaccination: 08/2016 Most Recent Tetanus Shot: W/in last 5 years Most Recent Pneumonia Vaccination: 08/2016 Physical Exam - Summary Physical Exam Summary: General: well-appearing, no pain distress Skin: warm, color reflects adequate perfusion, dry, 8 cm by 3 cm erythematous right germain in the middle there is a white, raised bump Head: normal Eyes: EOMI, HARPER ENT: normal Neck: supple, nontender Respiratory: CTA, breath sounds present Cardiovascular: RRR Abdomen: soft, nontender Bowel: present Musculoskeletal: normal, strength/ROM intact Neurological: sensory/motor intact, A&O x3 Psychological: affect/mood appropriate Triage Information Reviewed: Yes Vital Signs: Initial Vital Signs Temp 98.6 F 04/06/18 18:58 Pulse 62 04/06/18 18:58 Resp 16 04/06/18 18:58 BP 175/92 04/06/18 18:58 Pulse Ox 99 04/06/18 18:58 Vital Signs Reviewed: Yes Course/Dx - Course Course Of Treatment: SEE PRIOR UC AND ED VISITS FROM TODAY. PATIENT HAS BEEN ON AUGMENTIN FOR 10 DAYS AND THE REDNESS STARTED WHILE ON THE AUGMENTIN. THE RT GERMAIN NODULE WHICH IS IN THE CENTER OF THE RED AREA HAS BEEN THERE FOR 2+ WEEKS. RX BACTRIM TO COVER FOR MRSA IF THAT IS THE CAUSE OF THE REDNESS. F/U PMD; RECHECK SOONER IF WORSE. - Diagnoses Provider Diagnoses: RIGHT LEG CELLULITIS Discharge - Sign-Out/Discharge Documenting (check all that apply): Discharge/Admit/Transfer - Discharge Plan Condition: Stable Disposition: HOME Prescriptions: Sulfamethox/Trimethoprim DS* [Bactrim DS 800/160 TAB*] 1 tab PO BID #18 tab Patient Education Materials: Cellulitis (ED) Referrals: Mj Reveles MD [Primary Care Provider] - Additional Instructions: FOLLOW UP WITH YOUR DOCTOR. GET RECHECKED FOR ANY WORSENING OF YOUR CONDITION OR QUESTIONS OR CONCERNS. - Billing Disposition and Condition Condition: STABLE Disposition: HOME The documentation as recorded by the Irina ly Emily accurately reflects the service I personally performed and the decisions made by me, Abhilash Thomas MD.
== END 2018-04-06 19:40 | disposition home or self-care (01) ==
LOC: UCEAST 18:38
DX: L03.115 Cellulitis of right lower limb (principal); E11.9 Type 2 diabetes mellitus without complications; Z79.4 Long term (current) use of insulin; K21.9 Gastro-esophageal reflux disease without esophagitis; Z91.041 Radiographic dye allergy status; Z91.048 Other nonmedicinal substance allergy status
CPT/HCPCS: 99212; A9270-GY; G0463

== ENCOUNTER 2020-01-06 21:28 | Emergency (ER) | payer MEDICARE ==
[2020-01-06 22:57] LABS: ALT 19 U/L (7-52); AST 35 U/L (13-39); Albumin 3.7 g/dL (3.2-5.2); Albumin/Globulin Ratio 1.2 (1-3); Alkaline Phosphatase 137 U/L (34-104); Anion Gap 4 mmol/L (2-11); BUN/Creatinine Ratio 32.8 (8-20); Blood Urea Nitrogen 22 mg/dL (6-24); CO2 Carbon Dioxide 32 mmol/L (22-32); Calcium 8.9 mg/dL (8.6-10.3); Chloride 99 mmol/L (101-111); EGFR African American 103.3 (>60); EGFR Non-African American 85.3 (>60); Glucose 144 mg/dL (70-100); Sodium 135 mmol/L (135-145); Total Protein 6.7 g/dL (6.4-8.9)
--- NOTE | 2020-01-06 22:59 | ED ---
HPI Chest Pain - HPI Summary HPI Summary: Patient complains of epigastric pain radiating to left shoulder 2 days. Pain described as constant, at worst 8/10, currently 10/10. Worse after eating. Denies fever, cough, sore throat, SOB, N/V/D, change in urine, change in BM, vaginal symptoms. Extensive abdominal surgical history, splenic splenectomy, cholecystectomy, and pancrectomy. History of endoscopy in August 2019 which was negative. Strep cardiac catheter in 2018 which was negative. History of recurrent intermittent chest pain. - History of Current Complaint Chief Complaint: EDChestPainROMI Time Seen by Provider: 01/06/20 22:58 Hx Obtained From: Patient, Family/Train Examiner Onset/Duration: Started Days Ago Timing: Constant Initial Severity: Moderate Current Severity: Mild Pain Intensity: 3 Pain Scale Used: 0-10 Numeric Chest Pain Location: Lower Sternal Chest Pain Radiates To:: Shoulder Character: Burning Aggravating Factor(s): Other: Alleviating Factor(s): Spontaneous Resolution Associated Signs and Symptoms: Positive: Negative - Additional Pertinent History Primary Care Physician: [id number] - Allergy/Home Medications Allergies/Adverse Reactions: Allergies Allergy/AdvReac Type Severity Reaction Status Date / Time Adhesive Tape Allergy Rash Verified 01/06/20 23:30 contrast dye Allergy Intermediate Palpitation Uncoded 01/06/20 23:30 s Home Medications: Home Medications Atenolol TAB* [Tenormin TAB* 25 MG] 25 mg PO QAM 03/30/17 [History Confirmed ] Atorvastatin* [Lipitor 10 MG*] 10 mg PO DAILY 03/30/17 [History Confirmed ] Levothyroxine TAB (NF) [Synthroid TAB (NF)] 175 mcg PO QAM 03/30/17 [History Confirmed 01/06/20] Calcium Carb/Magnesium Hydrox [Rolaids 550-110 mg] 1 chw PO BID PRN 06/28/17 [ History Confirmed 01/06/20] Pantoprazole TAB * [Protonix TAB*] 40 mg PO BID 06/28/17 [History Confirmed ] Acyclovir [Acyclovir 5% TOPICAL] 1 applic TOPICAL QID PRN 08/30/17 [History Confirmed 01/06/20] Glucose Gel 15 gra .ROUTE SEE INSTRUCTIONS PRN 09/02/17 [History Confirmed 01/06] Famotidine TAB* [Pepcid 20 MG TAB*] 40 mg PO BEDTIME 04/06/18 [History Confirmed 01/06/20] Insulin Aspart [Novolog] 0 unit SC SEE INSTRUCTIONS 04/06/18 [History Confirmed 01/06/20] Aspirin EC TAB* [Ecotrin EC Low Dose 81 MG*] 81 mg PO DAILY 08/10/19 [History Confirmed 01/06/20] Hydroxyurea 500 mg PO DAILY 08/10/19 [History Confirmed 01/06/20] Lipase/Protease/Amylase [Creon 6000 Unit] 1 cap PO DAILY 08/10/19 [History Confirmed 01/06/20] Sucralfate TAB* [Carafate*] 1 gm PO QID 08/10/19 [History Confirmed 01/06/20] Lidocaine 2% VISCOUS* [Xylocaine 2% Viscous*] 15 ml SWISH SWAL Q6H PRN #1 btl [Rx] PMH/Surg Hx/FS Hx/Imm Hx Endocrine/Hematology History: Reports: Hx Blood Transfusions - this admission, Hx Diabetes - type 1, Hx Thyroid Disease, Hx Anemia - takes iron, Other Endocrine/Hematological Disorders - anemia Cardiovascular History: Reports: Hx Hypercholesterolemia, Other Cardiovascular Problems/Disorders - hx of tachycardia, ACS 03/27 AND HEART CATH, SVT, TACHYCARDIA Denies: Hx Hypertension, Hx Pacemaker/ICD Respiratory History: Denies: Hx Asthma, Hx Chronic Obstructive Pulmonary Disease (COPD) GI History: Reports: Hx Gall Bladder Disease, Hx Gastroesophageal Reflux Disease , Hx Gastrointestinal Bleed - 06/23/17 admission, Hx Ulcer, Other GI Disorders - s/p whipple, hernia repair, splenectomy History: Reports: Other Problems/Disorders - bladder prolapse Denies: Hx Renal Disease Musculoskeletal History: Denies: Hx Scoliosis Sensory History: Reports: Hx Cataracts - bilateral, Hx Contacts or Glasses, Hx Hearing Aid Opthamlomology History: Reports: Hx Cataracts - bilateral, Hx Contacts or Glasses EENT History: Denies: Hx Deafness Neurological History: Reports: Hx Seizures - when pt. was a child Denies: Hx Headaches, Other Neuro Impairments/Disorders Psychiatric History: Denies: Hx Panic Disorder - Cancer History Cancer Type, Location and Year: papillary thyroid with surgery 2006, pancreatic cancer w/ pancreas removal in 2014 Hx Chemotherapy: No Hx Radiation Therapy: No - Surgical History Surgery Procedure, Year, and Place: LT ROTATOR CUFF REPAIR,THYROIDECTOMY; hysterectomy 05/2013; incisional hernia 2013; splenectomy, whipple, pancrectomy, HEART CATH 03/2017 Hx Anesthesia Reactions: No Infectious Disease History: No Infectious Disease History: Denies: Traveled Outside the [place] in Last 30 Days - Family History Known Family History: Positive: None Negative: Cardiac Disease, Hypertension, Diabetes - Social History Alcohol Use: None Hx Substance Use: No Substance Use Type: Reports: None Hx Tobacco Use: No Smoking Status (MU): Never Smoked Tobacco Have You Smoked in the Last Year: No Review of Systems Constitutional: Negative Eyes: Negative ENT: Negative Cardiovascular: Negative Respiratory: Negative Positive: Abdominal Pain Genitourinary: Negative Musculoskeletal: Negative Skin: Negative Neurological/Mental Status: Negative Psychological: Normal All Other Systems Reviewed And Are Negative: Yes Physical Exam - Summary Physical Exam Summary: Mildly tender in epigastrium and left upper quadrant. Abdominal exam otherwise unremarkable. Triage Information Reviewed: Yes Vital Signs On Initial Exam: Initial Vitals Temp Pulse Resp BP Pulse Ox 98.3 F 60 16 191/112 95 01/06/20 21:33 01/06/20 21:33 01/06/20 21:33 01/06/20 21:33 01/06/20 21:33 Vital Signs Reviewed: Yes Appearance: Positive: Well-Appearing Skin: Positive: Warm Head/Face: Positive: Normal Head/Face Inspection Eyes: Positive: Normal Neck: Positive: Supple Respiratory/Lung Sounds: Positive: Clear to Auscultation Cardiovascular: Positive: Normal, Bradycardia Abdomen Description: Positive: Other: Musculoskeletal: Positive: Normal Neurological: Positive: Normal Psychiatric: Positive: Normal AVPU Assessment: Alert - [place] Coma Scale Best Eye Response: 4 - Spontaneous Best Motor Response: 6 - Obeys Commands Best Verbal Response: 5 - Oriented Coma Scale Total: 15 Procedures - Sedation Patient Received Moderate/Deep Sedation with Procedure: No Diagnostics - Vital Signs Vital Signs Temp Pulse Resp BP Pulse Ox 01/06/20 21:33 98.3 F 60 16 191/112 95 - Laboratory Lab Results: Lab Results 01/06/20 Range/Units 22:26 Sodium 135 (135-145) mmol/L Potassium 4.0 (3.5-5.0) mmol/L Chloride 99 L (101-111) mmol/L Carbon Dioxide 32 (22-32) mmol/L Anion Gap 4 (2-11) mmol/L BUN 22 (6-24) mg/dL Creatinine 0.67 (0.51-0.95) mg/dL Est GFR ( Amer) 103.3 (>60) Est GFR (Non-Af Amer) 85.3 (>60) BUN/Creatinine Ratio 32.8 H (8-20) Glucose 144 H (70-100) mg/dL Calcium 8.9 (8.6-10.3) mg/dL Total Bilirubin 0.50 (0.2-1.0) mg/dL AST 35 (13-39) U/L ALT 19 (7-52) U/L Alkaline Phosphatase 137 H (34-104) U/L Troponin I Pending Total Protein 6.7 (6.4-8.9) g/dL Albumin 3.7 (3.2-5.2) g/dL Globulin 3.0 (2-4) g/dL Albumin/Globulin Ratio 1.2 (1-3) Result Diagrams: 01/06/20 22:26 01/06/20 22:26 Lab Statement: Any lab studies that have been ordered have been reviewed, and results considered in the medical decision making process. Chest Pain Course/Dx - Course Course Of Treatment: Patient complains of epigastric pain radiating to left shoulder 2 days. Pain described as constant, at worst 8/10, currently 10/10. Worse after eating. Denies fever, cough, sore throat, SOB, N/V/D, change in urine, change in BM, vaginal symptoms. Extensive abdominal surgical history, splenic splenectomy, cholecystectomy, and pancrectomy. History of endoscopy in August 2019 which was negative. Strep cardiac catheter in 2018 which was negative. History of recurrent intermittent chest pain. Vital signs within normal limits. WBC 15.6 which is paced baseline. BUN/creatinine ratio 32. Serial troponins 0.03 which is intermittent baseline for patient. EKG sinus rhythm, 61, normal P axis. Same as prior. CT abdomen and pelvis negative. Symptoms resolved with GI cocktail. - Diagnoses Provider Diagnoses: Gastritis Discharge ED - Sign-Out/Discharge Documenting (check all that apply): Patient Departure - Discharge Plan Condition: Stable Disposition: HOME Prescriptions: Lidocaine 2% VISCOUS* [Xylocaine 2% Viscous*] 15 ml SWISH SWAL Q6H PRN #1 btl PRN Reason: Pain - Moderate Patient Education Materials: Gastritis (ED) Referrals: Samantha Sanchez MD [Primary Care Provider] - Additional Instructions: Use lidocaine and Maalox for breakthrough stomach pain. Follow-up with your GI doctor for further evaluation. Return to the ED for any new or worsening symptoms. - Billing Disposition and Condition Condition: STABLE Disposition: Home
[2020-01-06 23:05] LABS: Troponin I 0.03 ng/mL (<0.03)
[2020-01-06 23:18] LABS: Microcytosis 1+; Platelet Morphology Large; Polychromasia 1+
[2020-01-06 23:20] LABS: Hematocrit 41 % (35-47); Hemoglobin 12.4 g/dL (12.0-16.0); Mean Corpuscular HGB Conc 30 g/dL (31-36); Mean Corpuscular Hemoglobin 20 pg (27-31); Mean Corpuscular Volume 65 fL (80-97); Platelet Count 295 10^3/uL (150-450); Red Blood Count 6.34 10^6 /uL (3.70-4.87); Red Cell Distribution Width 24 % (10-15); White Blood Count 15.6 10^3/uL (3.5-10.8)
[2020-01-06 23:21] LABS: ABS Basophils 0.5 10^3/ul (0-0.2)
[2020-01-07 02:32] LABS: Troponin I 0.03 ng/mL (<0.03)
[2020-01-07] MEDS ORDERED: Al Hydrox/Mg Hydrox/Simet LIQ* 30 ML UDC PO ONE (02:34)
[2020-01-07] MEDS ORDERED: Lidocaine 2% VISCOUS* 15 ML UDC PO ONE (02:34)
[2020-01-07 02:35] VITALS: BP 164/81
== END 2020-01-07 02:46 | disposition home or self-care (01) ==
LOC: ED 21:28
DX: K29.70 Gastritis, unspecified, without bleeding (principal); E10.9 Type 1 diabetes mellitus without complications; E03.9 Hypothyroidism, unspecified; D64.9 Anemia, unspecified; E78.00 Pure hypercholesterolemia, unspecified; K21.9 Gastro-esophageal reflux disease without esophagitis; Z90.710 Acquired absence of both cervix and uterus; Z90.81 Acquired absence of spleen; Z85.850 Personal history of malignant neoplasm of thyroid; Z85.07 Personal history of malignant neoplasm of pancreas; Z79.4 Long term (current) use of insulin; Z79.82 Long term (current) use of aspirin; Z79.899 Other long term (current) drug therapy; Z91.041 Radiographic dye allergy status
CPT/HCPCS: 36415; 74176; 80053; 83605; 83690; 84484; 85025; 93005; 99284; A9270-GY

== ENCOUNTER 2020-01-21 15:16 | Emergency (ER) | payer MEDICARE ==
[2020-01-21 16:53] VITALS: BP 162/84
[2020-01-21] MEDS ORDERED: Acetaminophen TAB* 325 MG PO ONE (17:10)
--- NOTE | 2020-01-21 17:12 | UC ---
HPI Febrile Illness - HPI Summary HPI Summary: 79-year-old woman comes in with chief complaint of fever chills and body aches. Started last night with some body aches. Chills during the night. Body hurts the most bilateral flanks but she has generalized body aches also to include joint aches. Denies any urinary tract infection symptoms. No runny nose no sore throat no cough no chest congestion. Patient has a history of pancreatic cancer and polycythemia vera. She is also a splenic and therefore potentially immunocompromised. - History of Current Complaint Chief Complaint: UCGeneralIllness Time Seen by Provider: 01/21/20 16:58 Pain Intensity: 4 - Additional Pertinent History Primary Care Physician: [id number] - Allergy/Home Medications Allergies/Adverse Reactions: Allergies Allergy/AdvReac Type Severity Reaction Status Date / Time Adhesive Tape Allergy Rash Verified 01/21/20 16:53 contrast dye Allergy Intermediate Palpitation Uncoded 01/06/20 23:30 s Home Medications: Home Medications Atenolol TAB* [Tenormin TAB* 25 MG] 25 mg PO QAM 03/30/17 [History Confirmed 10/30] Atorvastatin* [Lipitor 10 MG*] 10 mg PO DAILY 03/30/17 [History Confirmed ] Levothyroxine TAB (NF) [Synthroid TAB (NF)] 175 mcg PO QAM 03/30/17 [History Confirmed 01/21/20] Calcium Carb/Magnesium Hydrox [Rolaids 550-110 mg] 1 chw PO BID PRN 06/28/17 [ History Confirmed 01/21/20] Acyclovir [Acyclovir 5% TOPICAL] 1 applic TOPICAL QID PRN 08/30/17 [History Confirmed 01/21/20] Glucose Gel 15 gra .ROUTE SEE INSTRUCTIONS PRN 09/02/17 [History Confirmed 01/20] Famotidine TAB* [Pepcid 20 MG TAB*] 40 mg PO BEDTIME 04/06/18 [History Confirmed 01/21/20] Insulin Aspart [Novolog] 0 unit SC SEE INSTRUCTIONS 04/06/18 [History Confirmed 01/21/20] Aspirin EC TAB* [Ecotrin EC Low Dose 81 MG*] 81 mg PO DAILY 08/10/19 [History Confirmed 01/21/20] Hydroxyurea 500 mg PO DAILY 08/10/19 [History Confirmed 01/21/20] Lipase/Protease/Amylase [Creon 6000 Unit] 1 cap PO DAILY 08/10/19 [History Confirmed 01/21/20] Sucralfate TAB* [Carafate*] 1 gm PO QID 08/10/19 [History Confirmed 01/21/20] Lisinopril [Zestril 2.5 MG-] 2.5 mg PO BEDTIME 01/21/20 [History Confirmed 01/20] PMH/Surg Hx/FS Hx/Imm Hx Previously Healthy: Yes - polycythemia vera Endocrine History: Hypothyroidism, Dyslipidemia Cardiovascular History: Hypertension Other Cancer History: pancreatic cancer - Surgical History Surgical History: Yes Surgery Procedure, Year, and Place: LT ROTATOR CUFF REPAIR,THYROIDECTOMY; hysterectomy 05/2013; incisional hernia 2013; splenectomy, whipple, pancrectomy, HEART CATH 03/2017 - Family History Known Family History: Positive: None Negative: Cardiac Disease, Hypertension, Diabetes - Social History Alcohol Use: None Substance Use Type: None Smoking Status (MU): Never Smoked Tobacco Have You Smoked in the Last Year: No - Immunization History Most Recent Influenza Vaccination: 08/2016 Most Recent Tetanus Shot: W/in last 5 years Most Recent Pneumonia Vaccination: 08/2016 Review of Systems All Other Systems Reviewed And Are Negative: Yes Constitutional: Positive: Fever, Other - see hpi Skin: Positive: Negative Eyes: Positive: Negative ENT: Positive: Negative Respiratory: Positive: Negative Cardiovascular: Positive: Negative Gastrointestinal: Positive: Negative Genitourinary: Positive: Negative Motor: Positive: Negative Neurovascular: Positive: Negative Musculoskeletal: Positive: Myalgia Neurological/Mental Status: Positive: Negative Psychological: Positive: Negative Is Patient Immunocompromised?: Yes Physical Exam Triage Information Reviewed: Yes Appearance: No Pain Distress, Well-Nourished, Ill-Appearing - mild Vital Signs: Initial Vital Signs Temp 101 F 01/21/20 16:46 Pulse 76 01/21/20 16:46 Resp 16 01/21/20 16:46 BP 162/84 01/21/20 16:46 Pulse Ox 95 01/21/20 16:46 Vital Signs Reviewed: Yes Eye Exam: Normal Eyes: Positive: Conjunctiva Clear ENT: Positive: Pharynx normal, TMs normal Neck: Positive: Supple Respiratory: Positive: Lungs clear, Normal breath sounds, No respiratory distress Cardiovascular: Positive: RRR Abdomen Description: Positive: Nontender, Soft Musculoskeletal: Positive: Strength Intact, ROM Intact Neurological: Positive: Alert, Muscle Tone Normal Psychological: Positive: Age Appropriate Behavior Skin Exam: Normal Course/Dx - Course Course Of Treatment: Oss Architect: Kannan Root ([id number]) Applications Support Engineer: OMAIRA (CHARLINEANCE) Report Date: 01/21/2020 18:35:00 Report Status: Final Start of Report Content ===== Patient Name: EDILIA GAN Medical Record#: [id number] Ordering Physician: Abhilash Thomas MD Acct.#: [id number] : 1940 Age: 79 Sex: F Location : [facility] Exam Date: 01/21/201750 ADM Status: REG ER Order Information: CHEST PA LAT 2 VWS Accession Number: [id number] CPT: 62736 INDICATION: Fever COMPARISON: Chest x-ray June 23, 2017 TECHNIQUE: PA and lateral views of the chest were obtained. FINDINGS: The heart and mediastinum are normal in size and contour. Similar to the prior chest x-ray, the lungs appear hyperaerated. Otherwise the lungs are grossly clear. There is no evidence of large pleural effusion. Visualized bones are normal for the patient' s age. There is no radiographic evidence of free air beneath the diaphragm IMPRESSION: APPEARANCE OF OBSTRUCTIVE PULMONARY DISEASE IS SIMILAR TO THE JUNE 23, 2017 CHEST X-RAY. THERE ARE NO RADIOGRAPHICALLY APPARENT ACUTE CARDIOPULMONARY FINDINGS. 01/21/201830 Dictated By: Kannan Root MD Dictated Date/Time: 01/21/201828 Transcribed Date/Time: 01/21/201828 Copy to: CC:Samantha Sanchez MD; Abhilash Thomas MD Imaging - [facility] [address] [address] [place] [address] [place] [address] ph ([phone]) ph ) ph ([phone]) End of Report Content === Strep flu and urine were all negative. On the chest x-ray no infiltrate. Patient is on hydroxyurea. 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 She's also had her pancreas removed and has polycythemia. Her last chemotherapy finished in November 2016 to there is no recent chemotherapy. She has no travel and no known sick contacts. Discussed the case with infectious disease and it was indeterminate whether to check for coronavirus based on current guidelines. We will test for coronavirus here today and patient will go into quarantine. She and her say they have the availability of separate bedrooms with separate bathrooms for isolation. I discussed with them that if the patient did not improve or she worsen they should go directly to the emergency department. - Diagnoses Provider Diagnosis: Febrile illness Discharge ED - Sign-Out/Discharge Documenting (check all that apply): Patient Departure All imaging exams completed and their final reports reviewed: Yes - Discharge Plan Condition: Stable Disposition: HOME Patient Education Materials: Fever in Adults (ED) Referrals: Samantha Sanchez MD [Primary Care Provider] - Additional Instructions: CONTINUE ISOLATION DISCUSSED. THE HEALTH DEPARTMENT WILL CONTACT YOU. FOLLOW UP WITH YOUR DOCTOR IF NOT COMPLETELY IMPROVED. GO TO THE EMERGENCY DEPARTMENT IF WORSE OR NOT IMPROVING. - Billing Disposition and Condition Condition: STABLE Disposition: Home
[2020-01-21 17:17] LABS: Influenza A Molecular Negative (Negative); Influenza B Molecular Negative (Negative)
[2020-01-22 11:17] LABS: Hematocrit 41 % (35-47); Hemoglobin 12.6 g/dL (12.0-16.0); Mean Corpuscular HGB Conc 31 g/dL (31-36); Mean Corpuscular Hemoglobin 20 pg (27-31); Mean Corpuscular Volume 65 fL (80-97); Red Blood Count 6.32 10^6 /uL (3.70-4.87); Red Cell Distribution Width 22 % (10-15); White Blood Count 19.7 10^3/uL (3.5-10.8)
[2020-01-22 11:23] LABS: ALT 20 U/L (7-52); AST 39 U/L (13-39); Albumin 3.7 g/dL (3.2-5.2); Albumin/Globulin Ratio 1.4 (1-3); Alkaline Phosphatase 135 U/L (34-104); Anion Gap 7 mmol/L (2-11); BUN/Creatinine Ratio 36.1 (8-20); Blood Urea Nitrogen 26 mg/dL (6-24); CO2 Carbon Dioxide 31 mmol/L (22-32); Chloride 95 mmol/L (101-111); EGFR Non-African American 78.5 (>60); Globulin 2.7 g/dL (2-4); Glucose 152 mg/dL (70-100); Potassium 4.3 mmol/L (3.5-5.0); Sodium 133 mmol/L (135-145); Total Protein 6.4 g/dL (6.4-8.9)
[2020-01-22 11:46] LABS: Microcytosis 3+; Polychromasia 1+
[2020-01-22 11:50] LABS: Mean Platelet Volume 10.2 fL (7.4-10.4); Platelet Count 330 10^3/uL (150-450)
[2020-01-22 11:52] LABS: ABS Basophils 0.2 10^3/ul (0-0.2); ABS Eosinophils 0.2 10^3/ul (0-0.6)
--- NOTE | 2020-01-25 09:31 | UC ---
- Progress Note Progress Note: Nasopharyngeal viral culture from January 21, 2020 comes back with all negative values to include negative for nCoV and therefore negative for Covid 19. White blood cell count was elevated which is consistent with the patient's history of polycythemia vera. Her glucose was elevated at 152 which is consistent with her history of diabetes. Nursing to call patient inform her of the results. Course/Dx - Diagnoses Provider Diagnoses: Febrile illness Discharge ED - Sign-Out/Discharge Documenting (check all that apply): Patient Departure - Trifed All imaging exams completed and their final reports reviewed: Yes - Discharge Plan Condition: Stable Disposition: HOME Patient Education Materials: Fever in Adults (ED) Referrals: Samantha Sanchez MD [Primary Care Provider] - Additional Instructions: CONTINUE ISOLATION DISCUSSED. THE HEALTH DEPARTMENT WILL CONTACT YOU. FOLLOW UP WITH YOUR DOCTOR IF NOT COMPLETELY IMPROVED. GO TO THE EMERGENCY DEPARTMENT IF WORSE OR NOT IMPROVING. - Billing Disposition and Condition Condition: STABLE Disposition: Home
--- NOTE | 2020-01-25 10:52 | UC ---
- Progress Note Progress Note: I discussed the nasopharyngeal viral culture from January 21, 2020 results to the patient that they are negative for nCoV and therefore she is negative for Covid 19. Patient reports that the health department had already called her and spoke with her about the results. Patient reports she is feeling better. Course/Dx - Diagnoses Provider Diagnoses: Febrile illness Discharge ED - Sign-Out/Discharge Documenting (check all that apply): Patient Departure All imaging exams completed and their final reports reviewed: Yes - Discharge Plan Condition: Stable Disposition: HOME Patient Education Materials: Fever in Adults (ED) Referrals: Samantha Sanchez MD [Primary Care Provider] - Additional Instructions: CONTINUE ISOLATION DISCUSSED. THE HEALTH DEPARTMENT WILL CONTACT YOU. FOLLOW UP WITH YOUR DOCTOR IF NOT COMPLETELY IMPROVED. GO TO THE EMERGENCY DEPARTMENT IF WORSE OR NOT IMPROVING. - Billing Disposition and Condition Condition: STABLE Disposition: Home
== END 2020-01-21 19:42 | disposition home or self-care (01) ==
LOC: UCEAST 15:16
DX: R50.9 Fever, unspecified (principal); I10 Essential (primary) hypertension; E03.9 Hypothyroidism, unspecified; E78.5 Hyperlipidemia, unspecified; M79.10 Myalgia, unspecified site; D45 Polycythemia vera; Z91.041 Radiographic dye allergy status; Z91.09 Other allergy status, other than to drugs and biological substances; Z79.890 Hormone replacement therapy; Z79.82 Long term (current) use of aspirin; Z79.899 Other long term (current) drug therapy; Z85.07 Personal history of malignant neoplasm of pancreas
CPT/HCPCS: 36415; 71046; 80053; 81003; 83690; 85025; 87651; 99212; A9270-GY; G0463